=== PATIENT | female | born 1980 | race Caucasian/White ===

== ENCOUNTER 2020-05-19 08:51 | Observation (INO) | payer BC, SELFPAY ==
[2020-05-19] VITALS (14 sets, daily range): BP systolic 92–111; BP diastolic 48–67; PULSE 72–94; RESP 14–20; TEMP 36.2–37.2; O2SAT 92–100
--- NOTE | ~2020-05-19 | CT_ITS ---
EXAMINATION: CT abdomen pelvis w con DATE: 05/19/2020 10:29 INDICATION: Right lower quadrant abdominal pain. Dysuria. TECHNIQUE: Computed tomography (CT) of the abdomen and pelvis was performed with 100 cc Omnipaque 350 intravenous contrast. Automated exposure control and iterative reconstruction technique were employe d. Exam dose: 460.47 mGy-cm total exam DLP. COMPARISON: None. FINDINGS: Status post bilateral augmentation mammoplasty. Normal heart size. No pericardial or pleural effusion. There is no infiltrate or consolidation or mass lesion at the included lung bases. The liver, gallbladder, bile ducts, spleen, pancreas, pancreatic duct, and adrenal glands are unremar kable. Probable 4 mm upper pole right renal cyst. There are 2 lower pole nonobstructing left renal calculi, the larger measuring approximately 3 mm. The appendix is abnormally dilated, measuring up to 9 mm diameter. There is thickening of most of the wall of the appendix but some areas of thinning are noted. There is prominent periappendiceal fat st randing. The findings are consistent with appendicitis. No abscess is identified. There is thickening of the right posterior pararenal fascia. There are air-fluid levels of the colon. Normal caliber of the abdominal aorta. No intraperitoneal or retroperitoneal or pelvic mass lesion or adenopathy or ascites is evident. The urinary bladder is unremarkable. Uterus and adnexal areas are unremarkable. Included skeletal structures are unremarkable. IMPRESSION: Acute appendicitis with prominent periappendiceal inflammation Probable 4 mm right renal cyst Two lower pole nonobstructing left renal small calculi Dr. Tobar telephoned the report to ER physician Dr. Harper on 05/19/2020 at 1042 hours. Reviewed, dictated and finalized at [facility]. Reviewed, dictated and finalized at [facility]. IMPRESSION: Acute appendicitis with prominent periappendiceal inflammation Probable 4 mm right renal cyst Two lower pole nonobstructing left renal small calculi Dr. Tobar telephoned the report to ER physician Dr. Harper on 05/19/2020 at 1042 ho urs.
[2020-05-19] MEDS: SODIUM CHLORIDE 0.9% IV 1,000 ML 999 ML IV CONT (09:21)
[2020-05-19 09:23] LABS: Basophils Percent Auto 0.2 % (0.2-1.2); Eosinophils Percent Auto 0.2 % (0-4.4); Hematocrit 39.9 % (37.0-47.0); Hemoglobin 13.9 g/dL (12.0-15.0); Immature Granulocyte Absolute 0.07 K/mm3 (0.00-0.031); Immature Granulocyte Percent A 0.4 % (0-0.5); Lymphocytes Absolute Auto 1.01 K/mm3 (0.9-3.2); Lymphocytes Percent Auto 5.8 % (18.3-44.2); Mean Corpuscular HGB Conc 34.8 g/dl (32-36); Mean Corpuscular Hemoglobin 31.1 pg (26-34); Mean Corpuscular Volume 89.3 fl (80-100); Mean Platelet Volume 11.6 fl (7.4-10.4); Monocytes Absolute Auto 0.6 K/mm3 (0.1-0.6); Monocytes Percent Auto 3.7 % (2.6-8.5); Neutrophils Absolute Auto 15.6 K/mm3 (1.3-6.7); Neutrophils Percent Auto 89.7 % (45.5-73.1); Platelet Count Result 221 k/mm3 (150-375); Red Blood Count 4.47 M/mm3 (4.2-5.4); Red Cell Distribution Width 12.4 % (11.5-14.5); White Blood Count 17.4 K/mm3 (4.5-10.0)
[2020-05-19 09:26] LABS: Add Urine Microscopic? YES; Appearance Urine Clear (Clear); Bacteria Urine Trace /hpf; Bilirubin Urine Negative (Negative); Blood Urine Negative (Negative); Color Urine Yellow (Yellow); Glucose Urine UA Negative (Negative); Ketones Urine 1+ mg/dL (Negative); Leukocyte Esterase Ur Negative LEU/UL (Negative); Mucus Urine Rare /lpf; Nitrate Urine Negative (Negative); Protein Urine Negative (Negative); RBC Urine 0-2 /hpf (0-2); Specific Grav Ur 1.011 (1.001-1.035); Squamous Epithelial Cell Urine Many /hpf (Few); Urobilinogen Urine Negative mg/dL (<2.0)
[2020-05-19 09:34] LABS: Alanine Aminotransferase 15 U/L (4-35); Albumin Level 4.1 g/dL (3.5-5.1); Alkaline Phosphatase 77 U/L (38-126); Anion Gap 9 mmol/L (8-16); Aspartate Amino Transferase 14 U/L (14-36); Bilirubin,Total 0.5 mg/dL (0.2-1.3); Blood Urea Nitrogen 6 mg/dL (7-17); Carbon Dioxide 21 mmol/L (22-30); Chloride 105 mmol/L (98-107); Estimated Glomerular Filt Rate > 60; Glucose 124 mg/dL (65-105); Potassium 3.8 mmol/L (3.4-5.0); Sodium 135 mmol/L (137-145)
--- NOTE | 2020-05-19 09:51 | ED.ABDPAIN ---
HPI - Abdominal Pain General Chief Complaint: Abdominal Pain Stated Complaint: abd pain Time Seen by Provider: 05/19/20 09:07 History of Present Illness HPI narrative: Patient presents with right lower quadrant pain for 2 days. She gives it a 6 out of 10. She has a history of 2 C-sections. She denies fever, but has chills and sweats. She has had no nausea or vomiting. MD elicited complaint: abdominal pain Pertinent past history: other ( x2) Onset (ago): day(s) Pain Consistency: constant Location: RLQ Severity: severe Pain scale (0-10): 6 Radiation: none Migration to: no migration Exacerbating factors: movement and other (Palpitation) Relieving factors: nothing Associated symptoms: chills Related Data Patient : No Allergies Allergy/AdvReac Type Severity Reaction Status Date / Time No Known Allergies Allergy Verified 05/19/20 09:13 Review of Systems Review of Systems: Narrative: CONSTITUTIONAL: Denies fever, but has had chills, or sweats. EYES: Denies visual changes, redness, or discharge. ENT: Denies rhinorrhea, congestion, sore throat, or otalgia. CARDIOVASCULAR: Denies chest pain, palpitations, or edema. RESPIRATORY: Denies cough or dyspnea. GASTROINTESTINAL: She has abdominal pain, but not nausea, vomiting, or diarrhea. GENITOURINARY: Denies dysuria or hematuria. SKIN: Denies rash or itching. MUSCULOSKELETAL: Denies back pain, joint pain, or myalgia. NEUROLOGIC: Denies headache, numbness, or weakness. PSYCHIATRIC: Denies anxiety, but has a history of depression. All systems reviewed & are unremarkable except as noted in HPI and below PMFSH Past Medical History Medical History Depression Surgical History Surgical History (Updated 05/19/20 @ 09:56 by Jolene Harper MD) History of Family History Family History (Updated 06/25/18 @ 14:53 by DOCTOR UNKNOWN) Mother Hypertension Family history of diabetes mellitus in first degree relative Diabetes mellitus Asthma Family history of elevated blood lipids Grandparent Family history of heart disease in male family member before age 55 Father Family history of cardiovascular disease Sibling Patient's sister is in good health Social History Social History Smoking status: Never smoker Alcohol intake: never Gender identity (if verbalized by the patient): Female Exam Narrative: Exam Narrative: GENERAL: Well-appearing, well-nourished, holding her right side bend over. HEAD: Normocephalic, atraumatic. EYES: PERRLA and EOMI. ENT: Nares clear, no rhinorrhea or epistaxis. Mucous membranes moist. NECK: Supple. CHEST: Clear to auscultation. No respiratory distress. HEART: Regular rate and rhythm. No murmur heard. Normal peripheral pulses. ABDOMEN: Soft, tender, nondistended, normal active bowel sounds. EXTREMITIES: Normal range of motion. No edema. SKIN: Warm, dry, no rash. NEURO: No focal deficits. Alert and oriented x3. PSYCH: Normal mood and affect. Const: General: alert Course Reevaluation(s) Reevaluation #1: Went back in the room to inform the patient about her appendicitis. She was just about asked for some water. Instead we will give her some more pain medicine. She understands about having surgery for her appendix. Date: 05/19/20 Time: 10:47 Consultations Consultation #1: Calling Dr. Puckett to notify about the appendicitis. She is going to call the operating room and get a space as soon as possible Date: 05/19/20 Time: 10:46 Vital Signs Vital signs: Vital Signs Temperature 98.5 F 05/19/20 09:10 Pulse Rate 94 05/19/20 09:10 Respiratory Rate 18 05/19/20 09:10 Blood Pressure 106/60 05/19/20 09:10 Pulse Oximetry 95 05/19/20 09:10 Temperature 98.5 F 05/19/20 09:10 Pulse Rate 94 05/19/20 09:10 Respiratory Rate 18 05/19/20 09:10 Blood Pressure 106
[2020-05-19] MEDS: MORPHINE SULFATE 4 MG/ML INJ IV PUSH ×2 (10:00→11:06)
[2020-05-19] MEDS: ONDANSETRON INJ 4 MG/2 ML VIAL IV PUSH (10:22)
--- NOTE | 2020-05-19 12:18 | WPDANESEPPF ---
Anes - Initial Pre Proc Eval Procedure: Operation Date: 05/19/20 12:30 Proposed Procedures p Laparoscopic Appendectomy - Isacc Puckett DO Date/Time: 05/19/20 12:18 Surgeon: Isacc Puckett DO Pre Op Diagnosis: abd pain Patient Data Age: 40 Gender: F Height: Weight: 70 kg Last Vital Signs Temp 98.5 F 05/19/20 09:10 Pulse 86 05/19/20 11:47 Resp 18 05/19/20 11:47 BP 100/66 05/19/20 11:47 Pulse Ox 96 05/19/20 11:47 Allergies Allergy/AdvReac Type Severity Reaction Status Date / Time No Known Allergies Allergy Verified 05/19/20 09:13 Home Medications Medication Instructions Recorded Confirmed Type escitalopram oxalate 20 mg tablet 20 mg PO DAILY #90 tablet 11/25/19 Rx aripiprazole 5 mg tablet See Rx Instructions .ROUTE 03/08/20 Rx .COMPLEX #90 tablet eszopiclone 3 mg tablet 3 mg PO .at hs #90 tablet 04/21/20 Rx alprazolam 0.5 mg tablet 0.5 mg PO BID PRN #180 tablet 04/26/20 Rx Laboratory Tests 05/19/20 05/19/20 05/19/20 09:17 09:17 09:17 WBC 17.4 K/mm3 H K/mm3 (4.5-10.0) RBC 4.47 M/mm3 M/mm3 (4.2-5.4) Hgb 13.9 g/dL g/dL (12.0-15.0) Hct 39.9 % % (37.0-47.0) MCV 89.3 fl fl (80-100) MCH 31.1 pg pg (26-34) MCHC 34.8 g/dl g/dl (32-36) RDW 12.4 % % (11.5-14.5) Plt Count 221 k/mm3 k/mm3 (150-375) MPV 11.6 fl H fl (7.4-10.4) Immature Gran % (Auto) 0.4 % % (0-0.5) Neut % (Auto) 89.7 % H % (45.5-73.1) Lymph % (Auto) 5.8 % L % (18.3-44.2) [place] % (Auto) 3.7 % % (2.6-8.5) Eos % (Auto) 0.2 % % (0-4.4) Baso % (Auto) 0.2 % % (0.2-1.2) Lymph # (Auto) 1.01 K/mm3 K/mm3 (0.9-3.2) [place] # (Auto) 0.6 K/mm3 K/mm3 (0.1-0.6) Eos # (Auto) 0.0 K/mm3 K/mm3 (0-0.3) Baso # (Auto) 0.0 K/mm3 K/mm3 (0.0-0.1) Abs Immat Gran (auto) 0.07 K/mm3 H K/mm3 (0.00-0.031) Absolute Neuts (auto) 15.6 K/mm3 H K/mm3 (1.3-6.7) Absolute Nucleated RBC 0.0 K/mm3 K/mm3 (0.0-0.012) Nucleated RBC % 0.0 % % (0.0-0.2) Sodium 135 mmol/L L mmol/L (137-145) Potassium 3.8 mmol/L mmol/L (3.4-5.0) Chloride 105 mmol/L mmol/L (98-107) Carbon Dioxide 21 mmol/L L mmol/L (22-30) Anion Gap 9 mmol/L mmol/L (8-16) BUN 6 mg/dL L mg/dL (7-17) Creatinine 0.70 mg/dL mg/dL (0.7-1.0) Estim Creat Clear Calc Not Reportable Estimated GFR > 60 (59 - ) Glucose 124 mg/dL H mg/dL (65-105) Calcium 9.0 mg/dL mg/dL (8.4-10.2) Total Bilirubin 0.5 mg/dL mg/dL (0.2-1.3) AST 14 U/L U/L (14-36) ALT 15 U/L U/L (4-35) Alkaline Phosphatase 77 U/L U/L (38-126) Total Protein 7.0 g/dL g/dL (6.3-8.2) Albumin 4.1 g/dL g/dL (3.5-5.1) Urine Color Yellow (Yellow) Urine Appearance Clear (Clear) Urine pH 6.0 (5.0-9.0) Ur Specific [place] 1.011 (1.001-1.035) Urine Protein Negative mg/dL mg/dL (Negative) Urine Glucose (UA) Negative mg/dL mg/dL (Negative) Urine Ketones 1+ mg/dL H mg/dL (Negative) Ur Blood (Man) Negative (Negative) Urine Nitrate Negative (Negative) Urine Bilirubin Negative (Negative) Urine Urobilinogen Negative mg/dL mg/dL (<2.0) Leukocyte Esterase Rfl Negative LAINEY/UL LAINEY/UL (Negative) Urine RBC 0-2 /hpf /hpf (0-2) Urine WBC 4-6 /hpf H /hpf Ur Squamous Epith Cells Many /hpf H /hpf (Few) Urine Bacteria Trace /hpf /hpf Urine Mucus Rare /lpf /lpf Patient hx anesthesia problems: none Family hx anesthesia problems: none PMFSH Past Medical History Medical History (Rev
[2020-05-19] MEDS: LACTATED RINGERS 1,000 ML 30 ML IV CONT (12:20)
[2020-05-19] MEDS: KETOROLAC 15 MG/ML VIAL (*BKC) IV PUSH (13:00)
[2020-05-19] MEDS: BUPIVACAINE/EPINEPHRINE 0.5% 30 ML VIAL INFILTRATE (13:15)
[2020-05-19] MEDS: ACETAMINOPHEN 325 MG TABLET 650 MG PO (15:44)
--- NOTE | 2020-05-19 16:13 | PM.IMHP ---
H&P: HPI History of Present Illness Date/Time: 05/19/20 16:13 Chief complaint: acute perforated appendicitis Narrative: Araceli Hager is a 40 year old female Who presented to the emergency department today with right lower quadrant abdominal pain. She has been experiencing pain for 4 days and pain has gradually worsened. She has also experienced chills but denies fevers. She denies any change in bowel habits or any nausea or vomiting. She has never had any symptoms like this in the past. Review of Systems Review of Systems: All systems reviewed & are unremarkable except as noted in HPI and below Eyes: Eyes: Denies change in vision ENT: Denies hearing loss, Denies neck pain and Denies sore throat Cardiovascular: Cardiovascular: Denies chest pain and Denies dyspnea Respiratory: Respiratory: Denies cough, Denies dyspnea and Denies wheezing Gastrointestinal: Gastrointestinal: Reports as per HPI Genitourinary: Genitourinary: Denies hematuria and Denies dysuria Musculoskeletal: Musculoskeletal: Denies arthralgias, Denies joint swelling and Denies neck pain Allergic/Immunologic: Allergic/Immunologic: Denies wheezing [facility] Past Medical History Medical History Depression Surgical History Surgical History History of Family History Family History Mother Hypertension Family history of diabetes mellitus in first degree relative Diabetes mellitus Asthma Family history of elevated blood lipids Grandparent Family history of heart disease in male family member before age 55 Father Family history of cardiovascular disease Sibling Patient's sister is in good health Social History Social History Smoking packs per day: 1.5 Smoking cigarettes per day: 30.0 Years smoked: 30 Smoking pack-years: 45.00 Smoking status: Former smoker Tobacco type: cigarettes Smoking end date: 05/15/20 Alcohol intake: never Substance use: never Gender identity (if verbalized by the patient): Female Spiritual care concerns: No Meds Home Medications and Allergies Home Medications Medication Instructions Recorded Confirmed Type alprazolam 0.5 mg tablet 0.5 mg PO BID PRN #180 tablet 04/26/20 05/19/20 Rx aripiprazole 5 mg PO HS 05/19/20 05/19/20 History escitalopram oxalate 20 mg PO HS 05/19/20 05/19/20 History eszopiclone [Lunesta] 3 mg PO HS 05/19/20 05/19/20 History Allergies Allergy/AdvReac Type Severity Reaction Status Date / Time No Known Allergies Allergy Verified 05/19/20 09:13 Vital Signs Vital Signs - 24 hr 05/19/20 09:10 05/19/20 10:55 05/19/20 11:07 Temperature 36.9 C Pulse Rate 94 88 89 Respiratory Rate 18 18 17 Blood Pressure 106/60 92/67 L 92/67 L Pulse Oximetry 95 98 97 05/19/20 11:47 05/19/20 12:25 05/19/20 13:50 Temperature 37.2 C 36.3 C L Pulse Rate 86 92 82 Respiratory Rate 18 16 14 Blood Pressure 100/66 106/48 L 103/59 L Pulse Oximetry 96 100 100 05/19/20 14:05 05/19/20 14:20 05/19/20 14:35 Temperature Pulse Rate 72 86 78 Respiratory Rate 14 14 14 Blood Pressure 96/49 L 106/61 98/50 L Pulse Oximetry 100 97 100 05/19/20 14:38 05/19/20 14:53 05/19/20 15:23 Temperature 36.2 C L 36.3 C L 36.4 C Pulse Rate 72 79 81 Respiratory Rate 15 15 19 Blood Pressure 110/64 109/64 104/55 L Pulse Oximetry 96 96 96 Exam Const: General: alert; No acute distress Orientation/consciousness: patient oriented x3 Limitations: no limitations HENMT: Head: normocephalic and atraumatic Ears: hearing grossly normal bilaterally General nose exam: Normal external nose present and Normal nares present Mouth: Yes Normal oral and palatal mucosa present and Yes moist mucous membranes Eyes: General: appearan
--- NOTE | 2020-05-19 16:20 | PM.PROC ---
Procedure Note - Detailed Date of procedure: 05/19/20 Pre-op diagnosis: acute appendicitis Post-op diagnosis: other ( Acute perforated appendicitis with abscess) Procedure performed: 1. Laparoscopic Appendectomy 2. laparoscopic drainage of intra-abdominal abscess Description of procedure: Procedure as well as risks, benefits, and alternatives were explained to the patient. The patient agreed to proceed. Written consent was obtained and placed in chart prior to procedure. The patient was brought back to surgical suite. she was placed supine on operating table. Time-out was done to confirm the patient and procedure. The patient was then intubated by the Anesthesia Department. her abdomen was prepped and draped in sterile fashion using chlorhexidine prep. A 12 mm incision was made at the inferior portion of the umbilicus. Blunt dissection was carried out down to the linea alba. The linea alba was then incised using a 15 blade scalpel. Then bluntly entered into the peritoneal cavity. A 12 mm trocar was then inserted, and carbon dioxide insufflation was used to create a pneumoperitoneum. The camera was inserted and the abdomen was inspected. No immediate abnormalities were identified. The patient was then placed in slight Trendelenburg position and rotated to the left. A 5 mm incision was made in the suprapubic region in midline and a 5 mm trocar was inserted under direct visualization. A 5 mm incision was made in the left lower quadrant and a 5 mm trocar was inserted under direct visualization. The right lower quadrant was carefully inspected. The cecum was identified and then this was traced back to the appendix. there appeared to be a perforation along the appendix and a small abscess was contained between the appendix and terminal ileum. The abscess was drained using the suction bulb inspector and any spillage was carefully contained to prevent spread throughout her abdominal cavity. The appendix was identified and grasped at the mesoappendix and lifted anteriorly. Careful blunt dissection was carried out at the base of the appendix through the mesoappendix using a [place] grasper. An Endo-CINDY 45 mm blue load stapler was then advanced across the base of the appendix and clamped and fired. A white reload was then clamped across the mesoappendix and fired. This freed up our appendix completely. It was then placed in an EndoCatch bag and removed through the left lower quadrant port. The staple lines were then inspected. Hemostasis appeared adequate and the staple lines appeared secure. The area was then irrigated with sterile saline. The pelvis was then carefully inspected and irrigated with sterile saline as well and the remainder of the abdomen was carefully inspected. The patient was then flattened out in bed. One final inspection was made around the abdominal cavity and no other abnormalities were seen. The ports were then removed under direct visualization. The camera was removed and the pneumoperitoneum was released. The fascia of the umbilical incision was reapproximated using an 0 Vicryl [id number] suture. 0.5% bupivacaine with epinephrine was infiltrated locally around each of the incisions. The skin of the incisions was then approximated using 4-0 Monocryl subcuticular suture and Exofin glue was applied on top. The patient was then awakened from anesthesia, extubated, and transferred to Recovery. Anesthesia: GETA and local (0.5% bupivicaine with epi) Surgeon: Isacc Puckett DO Estimated blood loss (mL): 10 Pathology: yes (Appendix) Complications: No immediate complications Condition: stable Disposition: floor Findings: This is a 40-year-old woman who presented to the emergency department this morning with right lower quadrant abdominal pain that started about 4 days prior. She was having some chills but denied any fevers. She was noted to have elevated white blood count at 17,[address] of her abdomen and pelvis showed ev
[2020-05-19] MEDS: NICOTINE (*PBKC) 21 MG PATCH 1 PATCH TRANSDERM (16:52)
[2020-05-19] MEDS: ARIPiprazole 5 MG TABLET PO (21:17)
[2020-05-19] MEDS: ZOLPIDEM TARTRATE 5 MG TABLET 10 MG PO (21:17)
[2020-05-19] MEDS: ESCITALOPRAM OXALATE 10 MG TABLET 20 MG PO (21:17)
[2020-05-20] VITALS: BP 103/67; PULSE 76; RESP 18; TEMP 36.5; O2SAT 98
[2020-05-20 04:00] VITALS: BP 92/60; PULSE 71; RESP 20; TEMP 36.2; O2SAT 98
[2020-05-20 05:30] LABS: Hematocrit 32.4 % (37.0-47.0); Hemoglobin 10.9 g/dL (12.0-15.0); Mean Corpuscular HGB Conc 33.6 g/dl (32-36); Mean Corpuscular Hemoglobin 30.8 pg (26-34); Mean Corpuscular Volume 91.5 fl (80-100); Mean Platelet Volume 11.8 fl (7.4-10.4); Platelet Count Result 168 k/mm3 (150-375); Red Blood Count 3.54 M/mm3 (4.2-5.4); Red Cell Distribution Width 12.6 % (11.5-14.5); White Blood Count 11.6 K/mm3 (4.5-10.0)
[2020-05-20 05:45] LABS: Anion Gap 4 mmol/L (8-16); Blood Urea Nitrogen 5 mg/dL (7-17); Calcium 8.4 mg/dL (8.4-10.2); Carbon Dioxide 24 mmol/L (22-30); Chloride 106 mmol/L (98-107); Estimated Glomerular Filt Rate > 60; Glucose 104 mg/dL (65-105); Potassium 3.6 mmol/L (3.4-5.0); Sodium 134 mmol/L (137-145)
[2020-05-20] MEDS: ACETAMINOPHEN 325 MG TABLET 650 MG PO (08:01)
[2020-05-20] MEDS: NICOTINE (*PBKC) 21 MG PATCH 1 PATCH TRANSDERM (08:01)
[2020-05-20 10:00] VITALS: BP 98/54; PULSE 70; RESP 16; TEMP 36.3; O2SAT 100
--- NOTE | 2020-05-20 10:42 | WPDANESPN ---
Anes - Prog Note Post-Op Date/Time: 05/20/20 10:42 Cardiovascular status: normal Respiratory status: normal Airway patency: baseline Mental status: baseline Post-Op hydration status: normal Vital Signs: Last Vital Signs Temp 36.3 C L 05/20/20 10:00 Pulse 70 05/20/20 10:00 Resp 16 05/20/20 10:00 BP 98/54 L 05/20/20 10:00 Pulse Ox 100 05/20/20 10:00 I/O: Intake & Output 05/19/20 05/20/20 05/20/20 23:59 07:59 15:59 Intake Total 860 850 690 Output Total 1500 350 Balance 860 -650 340 Laboratory Tests 05/20/20 05:10 05/20/20 05:10 05/20/20 05/20/20 05:10 05:10 WBC 11.6 H RBC 3.54 L Hgb 10.9 L D Hct 32.4 L MCV 91.5 MCH 30.8 MCHC 33.6 RDW 12.6 Plt Count 168 MPV 11.8 H Sodium 134 L Potassium 3.6 Chloride 106 Carbon Dioxide 24 Anion Gap 4 L BUN 5 L Creatinine 0.60 L Estim Creat Clear Calc Not Reportable Estimated GFR > 60 Glucose 104 Calcium 8.4 Post-procedural complaints: none Patient Feedback: Patient satisfied with anesthetic care.
--- NOTE | 2020-05-20 11:44 | PM.DS ---
DS: Admitting Diagnosis Admitting Diagnosis Admitting Diagnosis: acute appendicitis DS: Discharge Diagnosis Discharge Diagnosis (1) Acute appendicitis: Qualifiers: Acute appendicitis type: with localized peritonitis Appendicitis abscess presence: with abscess Appendicitis gangrene presence: without gangrene Appendicitis perforation presence: with perforation Qualified Code(s): K35.33 - Acute appendicitis with perforation and localized peritonitis, with abscess Code(s): K35.80 - Unspecified acute appendicitis Status: Acute (2) Depression: Qualifiers: Depression Type: unspecified Qualified Code(s): F32.9 - Major depressive disorder, single episode, unspecified Code(s): F32.9 - Major depressive disorder, single episode, unspecified Status: Acute DS: Summary Hospital Course Reason for hospitalization: Acute appendicitis Hospital Course: this is a 40-year-old woman who presented to the emergency department on 05/19 with complaints of right lower quadrant abdominal pain. She had been experiencing pain for about 3-4 days before presentation and was also experiencing some occasional chills. Workup in the emergency department showed evidence of acute appendicitis with a markedly elevated white blood count. She was taken emergently for laparoscopic appendectomy on 05/19. At time of surgery, the appendix was noted to be perforated with a small periappendiceal abscess. Surgery was uncomplicated and patient was returned to the surgical floor for continued care and IV antibiotics. She was continued on Zosyn during her hospitalization. She remained afebrile and her vitals remained stable. On postop day 1, her white blood count was nearly back to normal and she was remaining afebrile. She was tolerating a regular diet and was up ambulating without much difficulty. Pain was well controlled. Decision was made to discharge her on postop day 1. Status at Discharge Functional status at discharge: independent ambulation Overall status at discharge: patient is progressing back to baseline Time Spent with Patient Time attestation: Total time spent providing and/or coordinating discharge services: Time spent: Less than 30 minutes Exam Const: General: no acute distress Limitations: no limitations Resp: Auscultation: clear to auscultation bilaterally Cardio: Rate: regular rate Rhythm: regular rhythm GI: Inspection: incision ( mild bruising at incisions but otherwise intact and healing) GI Palp: Yes Soft to palpation, Yes Tenderness to palpation present (GI) ( Incisional) and No Guarding due to palpation present (GI) Percussion: Yes normal to percussion Auscultation: normal bowel sounds Psych: Mental Status: mental status grossly normal Speech and movement: Normal speech and movement present Thought content: Yes Normal thought content present DS: Data Data Completed and Pending Pending studies at discharge: Pending at discharge 05/19/20 13:02 Surgical [PTH] Routine Labs on day of discharge: Labs from last 24 hours 05/20/20 05/20/20 05:10 05:10 WBC 11.6 H RBC 3.54 L Hgb 10.9 L D Hct 32.4 L MCV 91.5 MCH 30.8 MCHC 33.6 RDW 12.6 Plt Count 168 MPV 11.8 H Sodium 134 L Potassium 3.6 Chloride 106 Carbon Dioxide 24 Anion Gap 4 L BUN 5 L Creatinine 0.60 L Estim Creat Clear Calc Not Reportable Estimated GFR > 60 Glucose 104 Calcium 8.4 Imaging Radiologist's impression: ITS Impressions Abdomen/Pelvis CT 05/19/20 10:31 IMPRESSION: Acute appendicitis with prominent periappendiceal inflammation Probable 4 mm right renal cyst Two lower pole nonobstructing left renal small calculi Dr. Tobar telephoned the report to ER physician Dr. Harper on 05/19/2020 at 1042 hours. Discharge Plan Discharge Attending physician on discharge: Isacc Puckett Discharging Clinician: Isacc Puckett Patient Disposition:
== END 2020-05-20 12:31 | disposition home or self-care (01) ==
LOC: ANHED 10:59 → ANHSURGERY 11:40 → ANH2MED 15:00
PROVIDERS: Admitting Provider Surgery; Emergency Provider Emergency Medicine; PCP Internal Medicine; Visit Provider Surgery
PROC: 0DTJ4ZZ Resection of Appendix, Percutaneous Endoscopic Approach (ICD-10-PCS; CPT 44970; principal; 2020-05-19 12:30)
DX: K35.33 Acute appendicitis with perforation, localized peritonitis, and gangrene, with abscess (principal); Z87.891 Personal history of nicotine dependence; F32.9 Major depressive disorder, single episode, unspecified
CPT/HCPCS: 44970; 36415; 74177; 80048; 80053; 81001; 81025; 85025; 85027; 88304; 96361; 96365; 96375; 96376; 99285; A9270; G0378; J0330; J1100; J1170; J1885; J2250; J2270; J2405; J2543; J2704; J3010; J7030; J7120; Q9967

== ENCOUNTER 2021-01-11 08:56 | Outpatient (CLI) | payer BC, SELFPAY ==
--- NOTE | ~2021-01-11 | XR_ITS ---
EXAMINATION: XR heel LT min 2V DATE: 01/11/2021 09:16 INDICATION: Left foot pain. TECHNIQUE: 2 views of left calcaneus were obtained. COMPARISON: None. FINDINGS: Bone alignment is normal. No fracture. Joint spaces are normal. There is an enthesophyte at plantar aspect of calcaneal tuberosity. IMPRESSION: 1. No fracture. Reviewed, dictated and finalized at location [facility]. IMPRESSION: 1. No fracture.
== END 2021-01-11 08:57 | disposition home or self-care (01) ==
LOC: ANHIMG 09:00
PROVIDERS: PCP Internal Medicine; Visit Provider Nurse Practitioner
DX: M79.672 Pain in left foot (principal)
CPT/HCPCS: 73650

== ENCOUNTER 2022-01-10 10:38 | Emergency (ER) | payer BC, SELFPAY ==
--- NOTE | ~2022-01-10 | CT_ITS ---
EXAMINATION: CT brain wo con EXAM DATE: 01/10/2022 12:04 INDICATION: irretractable, diff than usual, visual changes. TECHNIQUE: Spiral CT of the head was performed without contrast. Axial, coronal and sagittal images were reviewed. The dose-length product (DLP) for this examination was 605.33 mGy-cm. The exposure w as tailored according to patient size, and iterative reconstruction (ASIR) was used as additional dos e reduction technique. Comparison is made to prior examination from 05/18/2011. FINDINGS: There is no acute intraparenchymal hemorrhage. No evidence of intraparenchymal brain mass lesion. No evidence of acute infarction. There is no mass effect or midline shift. The ventricles are normal in size. There are no extra-axial collections. There are no acute calvarial fractures. T he orbits are unremarkable. Soft tissue is unremarkable. The visualized sinuses and mastoid air tony ls are well aerated. IMPRESSION: 1. No acute intracranial findings. Reviewed, dictated and finalized at location A.
[2022-01-10 11:00] VITALS: BP 117/81; PULSE 97; RESP 18; TEMP 36.4; O2SAT 98
--- NOTE | 2022-01-10 11:48 | ED.HA ---
HPI - Headache General Chief Complaint: Headache Stated Complaint: migraines x 6 weeks Time Seen by Provider: 01/10/22 11:27 History of Present Illness HPI Narrative: Patient is a 41-year-old female with a history of migraine headaches, depression, anxiety, who presents for 6 weeks of intractable, severe headaches. The pain is described like a pounding sensation behind her bilateral eyes. It is present throughout the day, worse with light and sound. She states the pain is different than her usual migraine headaches, and has been unrelieved by Excedrin Migraine, ibuprofen, sumatriptan, or topiramate prescribed by her PCP. She additionally reports double vision, blurry vision, and nausea but no vomiting. She has not had imaging of her head since onset of this new headache. Denies history of blood clots. Patient was seen by her primary care doctor this morning for the first time, who documented that she had made a statement saying that she wanted to cut herself to bring down the pain. Patient currently denies any suicidal ideation, homicidal ideation, or thoughts of hurting herself by cutting her wrist in the emergency department. She has never been hospitalized for a psychiatric issue, and has had no prior suicide attempts. She has a good support system at home. Related Data Home Medications Medication Instructions Recorded Confirmed topiramate 25 mg tablet 25 mg PO BID tablet 01/10/22 Allergies Allergy/AdvReac Type Severity Reaction Status Date / Time No Known Allergies Allergy Verified 01/10/22 11:17 Review of Systems Review of Systems: Gen.: Denies fevers or chills Eyes: Reports double and blurry vision. ENT: Denies congestion Respiratory: Denies shortness of breath or cough CV: Denies chest pain or palpitations GI: Reports nausea. denies abdominal pain emesis or diarrhea denies burning, urgency, frequency or hematuria Musculoskeletal: Denies back pain or muscle pain Neuro: Reports headache. Denies numbness, tingling, weakness or focal weakness Skin: Denies rash Except as documented, all other systems reviewed and negative All systems reviewed & are unremarkable except as noted in HPI and below PMFSH Past Medical History Medical History Acute appendicitis Chicken pox Depression Encounter for surgical aftercare following surgery on the digestive system Encounter for vitamin deficiency screening History of tonsillitis Insomnia Suicide attempt Surgical History Surgical History History of (~2008) History of (~2010) History of laparoscopic appendectomy 05/19/2020 History of tonsillectomy (~1999) Family History Family History Mother Hypertension Family history of diabetes mellitus in first degree relative Diabetes mellitus Asthma Family history of elevated blood lipids Grandparent Family history of heart disease in male family member before age 55 Father Family history of cardiovascular disease Sibling Patient's sister is in good health Social History Social History Smoking packs per day: 1 Smoking cigarettes per day: 20.0 Years smoked: 30 Smoking pack-years: 30.00 Smoking status: Current every day smoker Tobacco type: cigarettes Second hand tobacco smoke exposure: Yes Alcohol intake: never Substance use: never Substance use type: does not use Additional living arrangements comments: Patient is 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
[2022-01-10] MEDS: SODIUM CHLORIDE 0.9% IV 1,000 ML 999 ML IV CONT (12:15)
[2022-01-10] MEDS: PROCHLORPERAZINE EDISYLATE 10 MG/2 ML VIAL IV PUSH (12:15)
[2022-01-10] MEDS: diphenhydrAMINE HCl INJ 50 MG/ML VIAL 25 MG IV PUSH (12:18)
[2022-01-10] MEDS: KETOROLAC 15 MG/ML VIAL (*BKC) IV PUSH (12:59)
[2022-01-10 14:16] VITALS: BP 142/88; PULSE 86; RESP 16; O2SAT 97
== END 2022-01-10 14:17 | disposition home or self-care (01) ==
PROVIDERS: Emergency Provider Emergency Medicine; PCP Internal Medicine
DX: G43.909 Migraine, unspecified, not intractable, without status migrainosus (principal)
CPT/HCPCS: 70450; 81025; 96374; 96375; 99284; J0780; J1200; J1885; J7030

== ENCOUNTER 2022-03-14 10:35 | Outpatient (CLI) | payer BC, SELFPAY ==
--- NOTE | ~2022-03-14 | US_ITS ---
US right upper quadrant DATE: 03/14/2022 11:15 INDICATION: Right upper quadrant abdominal pain TECHNIQUE: Real-time imaging of liver, Gallbladder, pancreas COMPARISON: 05/19/2020 CT abdomen pelvis FINDINGS: Hepatic steatosis. No hepatic or pancreatic space-occupying mass lesion is evident. Normal hepatopedal portal venous flow direction. No gallstones, gallbladder wall thickening or pericholecystic fluid collection. Negative sonographic Silva's sign. The common bile duct measures 3.9 mm, normal. IMPRESSION: Hepatic steatosis Reviewed, dictated and finalized at [facility]. Reviewed, dictated and finalized at location A. IMPRESSION: Hepatic steatosis
== END 2022-03-14 10:36 | disposition home or self-care (01) ==
LOC: ANHIMG 10:37
PROVIDERS: PCP Emergency Medicine; Visit Provider Physician Assistant
DX: R10.11 Right upper quadrant pain (principal); K76.0 Fatty (change of) liver, not elsewhere classified
CPT/HCPCS: 76705

== ENCOUNTER → 2023-02-19 07:25 | Outpatient (CLI) | payer BC, SELFPAY ==
--- NOTE | ~2023-02-19 | XR_ITS ---
Left wrist Technique: PA, oblique, lateral, and ulnar deviation views were obtained. Clinical History: Pain Findings: No acute fracture or dislocation is seen. Osseous alignment is anatomic. Joint spaces are p reserved. Soft tissues are unremarkable. Impression: Unremarkable left wrist radiographs. Reviewed, dictated and finalized at location . Impression: Unremarkable left wrist radiographs.
== END ==
PROVIDERS: PCP Family Medicine; Visit Provider Family Medicine
DX: M25.532 Pain in left wrist (principal)
CPT/HCPCS: 73110

== ENCOUNTER → 2023-04-10 07:01 | Outpatient (CLI) | payer BC, SELFPAY ==
--- NOTE | ~2023-04-10 | XR_ITS ---
EXAMINATION: XR lumbar spine min 4V DATE: 04/10/2023 07:22 INDICATION: Low back pain, unspecified. TECHNIQUE: 5 views of lumbar spine were obtained. COMPARISON: CT abdomen and pelvis 05/19/2020 FINDINGS: There is 7 degrees dextrocurvature of lumbar spine. Vertebral body heights are normal. Ther e is mildly decreased disc height at L4-L5. There is multilevel mild facet joint osteoarthritis. Surg ical clips overlie right abdomen. IMPRESSION: 1. Mild lumbar spondylosis. Reviewed, dictated and finalized at location A. IMPRESSION: 1. Mild lumbar spondylosis.
== END ==
PROVIDERS: PCP Family Medicine; Visit Provider Family Medicine
DX: M47.816 Spondylosis without myelopathy or radiculopathy, lumbar region (principal)
CPT/HCPCS: 72110

== ENCOUNTER → 2023-06-13 09:15 | Outpatient (CLI) | payer BC, SELFPAY ==
--- NOTE | ~2023-06-13 | CT_ITS ---
EXAMINATION: CT wrist LT wo con DATE: 06/13/2023 09:32 INDICATION: Left wrist pain TECHNIQUE: High resolution computed tomography (CT) of the left wrist was performed without intraveno us contrast. Additional sagittal and coronal reconstructions were performed. Automated exposure contr ol and iterative reconstruction technique were employed. The dose-length product was 81.23 mGy-cm. COMPARISON: None FINDINGS: Bone alignment is normal. No acute fracture. There are a couple tiny calcific densities along the pal mar aspect of the first carpometacarpal joint without evident non corticated donor site which could r epresent degenerative loose bodies, heterotopic ossification or chronic fracture fragments. Joint spa morenita are normal. Soft tissues are unremarkable. IMPRESSION: 1. A couple tiny calcific densities along the palmar aspect of the first carpometacarpal joint which could represent degenerative loose bodies, heterotopic ossification or chronic nonunited fracture fra gments. Reviewed, dictated and finalized at location A. IMPRESSION: 1. A couple tiny calcific densities along the palmar aspect of the first carpom etacarpal joint which could represent degenerative loose bodies, heterotopic os sification or chronic nonunited fracture fragments.
== END ==
PROVIDERS: PCP Orthopaedic Surgery; Visit Provider Orthopaedic Surgery
DX: M25.532 Pain in left wrist (principal); R93.6 Abnormal findings on diagnostic imaging of limbs
CPT/HCPCS: 73200

== ENCOUNTER 2023-12-14 04:44 | Emergency (ER) | payer BC, SELFPAY ==
[2023-12-14 04:47] VITALS: BP 147/94; PULSE 107; RESP 20; TEMP 37.1; O2SAT 100
[2023-12-14] MEDS: ACETAMINOPHEN 500 MG TABLET 1000 MG PO (06:16)
[2023-12-14] MEDS: diphenhydrAMINE HCl INJ 50 MG/ML VIAL 25 MG IV PUSH (06:16)
[2023-12-14] MEDS: PROCHLORPERAZINE EDISYLATE 10 MG/2 ML VIAL IV PUSH (06:16)
[2023-12-14] MEDS: SODIUM CHLORIDE 0.9% IV 1,000 ML 999 ML IV CONT (06:17)
--- NOTE | 2023-12-14 06:23 | ED.GENADULT ---
HPI - General Adult General Chief complaint: Headache Stated complaint: headache Time Seen by Provider: 12/14/23 05:18 History of Present Illness HPI narrative: This is a 43-year-old female presenting ED with chief complaint of headache. Patient says her headache starts back her head, wraps around her ears and then is a squeezing pain around the top of her head. This is been going on since Saturday. Patient has seen her primary care physician multiple times last 4 years and has taken multiple abortive migraine medications without relief. She has appointment see a neurosurgeon in 2 weeks for in occipital nerve ablation. Patient has had an extensive workup performed for her headaches by her primary care physician as well as multiple consultations by specialist Related Data Home Medications Medication Instructions Recorded Confirmed clonazepam 1 mg tablet 1 mg PO QHS 06/05/23 11/26/23 lamotrigine 25 mg tablet 25 mg PO DAILY 06/05/23 11/26/23 Allergies Allergy/AdvReac Type Severity Reaction Status Date / Time No Known Allergies Allergy Verified 11/26/23 07:59 PMFSH Past Medical History Medical History Abdominal cramping Acute appendicitis Chicken pox Colon cancer screening Depression Diarrhea Encounter for surgical aftercare following surgery on the digestive system Encounter for vitamin deficiency screening History of tonsillitis Insomnia Major depressive disorder, recurrent severe without psychotic features Major depressive disorder, recurrent, unspecified Obesity Suicide attempt Surgical History Surgical History History of bilateral tubal ligation 2010 History of (~2008) History of (~2010) History of endometrial ablation 2012 History of laparoscopic appendectomy 05/19/2020 History of tonsillectomy (~1999) Family History Family History Mother Hypertension Family history of diabetes mellitus in first degree relative Diabetes mellitus Asthma Family history of elevated blood lipids Grandparent Family history of heart disease in male family member before age 55 Father Family history of cardiovascular disease Sibling Patient's sister is in good health Social History Social History Smoking packs per day: 1 Smoking cigarettes per day: 20.0 Years smoked: 30 Smoking pack-years: 30.00 Smoking status: Current every day smoker Tobacco type: cigarettes Second hand tobacco smoke exposure: Yes Alcohol intake: never Substance use: never Substance use type: does not use Do You Feel Safe in your Home?: Yes Lack of Transportation: No Lack of Food: Never True Current Housing: I Have Housing Concerned About Future Housing: No Difficulty Paying Gas/Electric Bills: No Difficulty Paying for Meds: No Currently Unemployed: Decline to Answer Education: Associate Degree Difficulty w/ Childcare or Family Care: No Living arrangements: with family Additional living arrangements comments: Patient is Occupation/Education: unemployed 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 EYES: EOMI, NOSE: Atraumatic NECK: Trachea midline RESPIRATORY: No increased rate of breathing CARDIOVASCULAR: RRR, ABDOMINAL: Non-distended MUSCULOSKELETAl: No obvious deformities NEURO: Alert. Cranial nerves 2-12 grossly intact. Sensation light touch, motor function cerebellar function intact for 4 extremities. Gait exam was normal. SKIN:: W
[2023-12-14 07:34] VITALS: BP 108/63; PULSE 78; RESP 19; TEMP 36.6; O2SAT 97
== END 2023-12-14 07:37 | disposition home or self-care (01) ==
PROVIDERS: Emergency Provider Emergency Medicine; PCP Family Medicine
DX: R51.9 Headache, unspecified (principal); F17.210 Nicotine dependence, cigarettes, uncomplicated
CPT/HCPCS: 64999; 96361; 96374; 96375; 99284; A9270; J0780; J1200; J7030

== ENCOUNTER 2024-01-08 07:41 | Outpatient (CLI) | payer BC, SELFPAY ==
--- NOTE | ~2024-01-08 | XR_ITS ---
XR hand RT min 3V DATE: 01/08/2024 08:04 INDICATION: Pain TECHNIQUE: 3 views COMPARISON: None FINDINGS: No fracture, dislocation, periosteal reaction or bone destruction, joint space narrowing, e rosive change or chondrocalcinosis is noted. IMPRESSION: Negative Reviewed, dictated and finalized at location B. IMPRESSION: Negative
== END 2024-01-08 07:42 | disposition home or self-care (01) ==
PROVIDERS: PCP Family Medicine; Visit Provider Plastic Surgery
DX: M18.0 Bilateral primary osteoarthritis of first carpometacarpal joints (principal)
CPT/HCPCS: 73130

== ENCOUNTER 2024-05-13 06:47 | Outpatient (CLI) | payer BC, SELFPAY ==
--- NOTE | ~2024-05-13 | XR_ITS ---
EXAMINATION: XR hand BI arthritis min 3V DATE: 05/13/2024 07:07 INDICATION: Unilateral primary osteoarthritis of first carpometacarpal joint. TECHNIQUE: 4 views of right hand and 4 views of left hand on a total of 7 radiographs were obtained. COMPARISON: Right hand radiographs 01/08/2024, left wrist radiographs 02/19/2023 FINDINGS: RIGHT HAND: Bone alignment is normal. No fracture. There is mild osteoarthritis of first carpometacar pal joint. LEFT HAND: Bone alignment is normal. No fracture. There is mild osteoarthritis of first carpometacarp al joint. IMPRESSION: 1. Mild osteoarthritis of the bilateral first carpometacarpal joints. Reviewed, dictated and finalized at location A.
== END 2024-05-13 06:48 | disposition home or self-care (01) ==
PROVIDERS: PCP Family Medicine; Visit Provider Plastic Surgery
DX: M18.11 Unilateral primary osteoarthritis of first carpometacarpal joint, right hand (principal); M18.12 Unilateral primary osteoarthritis of first carpometacarpal joint, left hand
CPT/HCPCS: 73130

== ENCOUNTER 2024-07-27 08:33 | Outpatient (CLI) | payer BC, SELFPAY ==
--- NOTE | ~2024-07-27 | MR_ITS ---
MRI of the lumbar spine Clinical History: Spondylosis Technique: Axial T2-weighted images, and sagittal T1-weighted, T2-weighted, and and T2 fat-sat images were acquired. Findings: There is no fracture or subluxation of the lumbar spine. Vertebral bodies maintain normal h eight and alignment. No bone marrow signal abnormality seen. At L1-L2, L2-L3, L3-L4, there is no disc bulge or herniation. There are moderate facet joint degenera tive changes at these levels. No spinal canal stenosis or neural foraminal narrowing at these levels. At L4-L5, there is moderate to advanced degenerative disc narrowing. There is mild disc bulge and mod erate facet arthropathy. No central canal stenosis or neural foraminal narrowing. At L5-S1, there is mild degenerative disc narrowing. There is mild disc bulge with small annular fiss ure. There is moderate facet arthropathy. No central canal stenosis or neural foraminal narrowing. Paravertebral soft tissues are unremarkable. Impression: Mild degenerative spondylosis at the lower lumbar spine, as detailed above. Reviewed, dictated and finalized at [facility]. Impression: Mild degenerative spondylosis at the lower lumbar spine, as detailed above.
== END 2024-07-27 08:34 | disposition home or self-care (01) ==
PROVIDERS: PCP Family Medicine; Visit Provider Family Medicine
DX: M47.26 Other spondylosis with radiculopathy, lumbar region (principal); M47.816 Spondylosis without myelopathy or radiculopathy, lumbar region
CPT/HCPCS: 72148

== ENCOUNTER 2025-08-11 08:32 | Outpatient (CLI) | payer BC, SELFPAY ==
--- OUTSIDE RECORDS SUMMARY | 2024-09-10 11:30 | XMS_ITS ---
Author Organization [facility] [place] ([address]) Address [address] [place] [address] Care Team Providers Care Green Ware Caster Name Role Phone Jerad Barrera MD Primary Care Provider Unavailab Dr. Toni Cordova Unavailable [phone] Encounters Encounter Location Date Provider Diagnosis [facility] [address] [place] [address] 09/10/2024 Toni Davis Plan Of Treatment No Information Progress Notes * Araceli HAGER LDOB:[birth year] (45 yo F)Acc No.[id number]:09/10/2024 Progress Notes Patient: Araceli ABRAHAM Provider: Femi Davis MD :1980 A ge:44 Y S ex:Female Date:09/10/2024 [facility] [id number] Pcp:Jerad Barrera MD Subjective: * Chief Complaints: * * Medical History: Objective: * Vitals: Assessment: Plan: * Treatment: * Billing Information: * Visit Code: * Procedure Codes: * Electronic signature of Dr. Toni Davis MD on 08/11/2025 at 08:47 AM ARBORIST Sign off status: Pending * Provider: Femi Davis MD Date: 1 11/11/2023 Generated for Ritesh bellamy/Mariela/eTransmitting on: 10/11/2024 08:47 AM ARBORIST
--- OUTSIDE RECORDS SUMMARY | 2025-01-14 11:30 | XMS_ITS ---
Author Organization [facility] [place] ([address]) Address [address] [place] [address] Care Team Providers Care Electricians Top Helper Name Role Phone Jerad Barrera MD Primary Care Provider Unavailab Dr. Toni Cordova Unavailable [phone] Deonna Morton [phone] REASON FOR VISIT Headache follow-up Encounters Encounter Location Date Provider Diagnosis [facility] [address] [place] [address] 01/14/2025 Deonna Morton Plan Of Treatment No Information Progress Notes * Araceli HAGER LDOB:[birth year] (45 yo F)Acc No.[id number]:01/14/2025 Progress Notes Patient: Krish CUADRADILLAN Araceli Lester Provider: Brian Morton APRN :1980 A ge:44 Y S ex:Female Date:01/14/2025 [id number] Pcp:Jerad Barrera MD Subjective: * Chief Complaints: * 1 . Headache follow-up. * Medical History: Objective: * Vitals: Assessment: Plan: * Treatment: * Billing Information: * Visit Code: * Procedure Codes: * Electronic signature of CHERIE Pacheco on 08/11/2025 at 08:46 AM ASSISTANT TRACK AND FIELD COACH Sign off status: Pending * Provider: Brian Morton APRN Date: 0 01/14/2025 Generated for Ritesh bellamy/Mariela/Shivani on: 1 10/11/2024 08:46 AM ASSISTANT TRACK AND FIELD COACH
--- OUTSIDE RECORDS SUMMARY | 2025-03-11 11:30 | XMS_ITS ---
Author Organization [facility] [place] ([address]) Address [address] [place] [address] Care Team Providers Care Retail Pos Specialist Name Role Phone Jerad Barrera MD Primary Care Provider Unavailab Dr. Toni Cordova Unavailable [phone] Deonna Morton Unavailable [phone] REASON FOR VISIT Botox Only Medications Medication SIG (Take, Route, Frequency, Duration) Notes Start Date End Date Status SEROquel 25 MG 1 tablet at bedtime Orally Once a day Active traZODone HCl 50MG 1 BY MOUTH AT BEDTIME *Please review and pick correct strength-formulat ion from [employer] options. If intended option is not shown, discontinue and re-order from Quick Search* Not-Taking Tylenol 325 MG 2 tab(s) orally every 4 hours Not-Taking lamoTRIgine 100 MG 1 tab(s) orally 2 times a day Active Neurontin 100 MG 1 cap(s) orally 3 times a day; Duration: 30 day(s) Not-Taking ALPRAZolam 0.5 MG 1 tab(s) orally 3 times a day Not-Taking Ibuprofen 800 MG 1 tab(s) orally Qday, PRN Not-Taking risperiDONE 0.5 MG 1 tab(s) orally 2 times a day; Duration: 30 day(s) Not-Taking Cyclobenzaprine HCl 10 MG 1/2 or 1 tab orally 3 times a day; Duration: 30 days 08/28/2023 Not-Taking Trudhesa 0.725 MG/SPRAY 2 SPRAYS (1 SPRAY PER NOSTRIL) NASAL SPRAY ONCE *Please review and pick correct strength-formulat ion from [employer] options. If intended option is not shown, discontinue and re-order from Quick Search* Not-Taking Nurtec 75 MG 1 tablet Orally every other day as PREVENTIVE 05/07/2024 Active ZAVZPRET (ZAVEGEPANT) 10 MG 1 SPRAY IN ONE NOSTRIL X 1 INTRANASAL PRN MIGRAINE X 1, NO REPEAT DOSE *Please review for potential replacement for e-prescription and drug interaction check* Not-Taking Medrol 4 MG 6 pills Day 1, 5 pills Day 2, 4 pills Day 3, 3 pills Day 4, 2 pills Day 5, 1 pill Day 6, then stop orally in AM with breakfast as directed; Duration: 6 days Not-Taking Ondansetron 4 MG 1 tablet Orally Once a day As needed 09/24/2024 Active Pregabalin 100 MG 1 cap nightly for 1 week, then 1 cap twice daily for 1 week, then 1 cap three times a day Orally as directed 05/07/2024 Active NURTEC ODT 75 MG 1 TAB(S) ORALLY ONCE *Please review for potential replacement for e-prescription and drug interaction check* 12/17/2023 Active KlonoPIN 1 MG 1 tab(s) orally qhs Active Social History Tobacco Use: Social History Observation Description Date Details (start date - stop date) Current Smoker NA - NA Smoking Smart Form: Question Answer Notes Are you a: current smoker Section Notes: Recovered alcoholic. Has bee n a smoker for about 30 years. Problems Problem Type SNOMED Code ICD Code Onset Dates Problem Status W/U Status Risk Notes Problem Transformed migraine (disorder) (665310854) Chronic migraine with aura, not intractable, without status migrainosus (G43.E09) Active confirmed Encounters Encounter Location Date Provider Diagnosis [facility] [address] [address] 03/11/2025 Deonna Morton Chronic migraine wit h aura, not intractable, without status migrainosus G43.E09 Assessments Encounter Date Diagnosis (ICD Code) Assessment Notes Treatment Notes Treatment Clinical Notes Section Notes 03/11/2025 Chronic migraine with aura, not intractable, without status migrainosus (ICD-10 - G43.E09) Plan Of Treatment Next Appt Details Follow Up: 3 Months, Reason: Evaluation and Management. Toxin injection Progress Notes * Araceli HAGER LDOB:[birth year] (45 yo F)Acc No.[id number]:03/11/2025 Progress Notes Patient: Araceli ABRAHAM Provider: Brian Morton APRN :1980 A ge:45 Y S ex:Female Date:03/11/2025 Address:[facility] [id number] Pcp:Jerad Barrera MD Subjective: * Chief Complaints: * 1 . Botox Only. * HPI: * Introduction: HPI: I had the pleasure of seeing Araceli Hager, who presented for Botox injection. * Initial History: INITIAL VISIT HISTORY: She initially developed migraine as a child. She would have nausea/vomiting as a child with migraines. She has had migraine every since childhood. Throughout her adult years she had sporadic migraines, but now in the last 2 years has developed a chronic migraine pattern. Migraine is described as follows: usually starts above right eye in forehead, spreads into bilateral frontotemporal and then generalizes and even spreads into her neck; pain is perceived as severe squeezing, but also endorses pulsating or throbbing, moderate to severe in degree; onset is rapid; aggravated by movement/activity with preference to lie still; associated with photophobia/phonophobia/osmophobia, nausea, and dizziness; no aura; can last hours to days. Triggers include stress, certain odors (perfume, fragrance, flowery smells), sleep deprivation, no dietary triggers. Current pattern is for daily headaches, has a constant daily headache that is mild to moderate headache, with severe migraines about 2 days/month, milder migrainous headaches at least 15 days/month. LAST VISIT HISTORY: Last visit was on 0 11/24/2024 for nerve block. She presents to clinic today for Botox injections for CM. She reports 90% improvement in her occipital nerve pain with relief lasting more than four weeks. * Previous Impression & Plan: Notes P revious Diagnoses: 1 . Chronic migraine with aura, not intractable, without status migrainosus - G43.E09 (Primary). * Interval History: Notes P harmacologic Treatment: C urrent abortive treatment: N urtec ODT 75 mg (effective), ondansetron P revious abortive treatment: R izatriptan, Sumatriptan, Ubrelvy, Trudhesa, Fioricet, Zavzpret NS (all ineffective or inadequately effective) C urrent preventive treatment: Botox, Nurtec ODT 75 mg every other day P revious preventive treatment: Q ulipta 60 mg (side effects), Emgality 120 mg (took for > 3 months earlier in 2023, inadequate effect), Propranolol (took in 2021 for >2 months and was ineffective), Amitriptyline (took eary 2022 for >2 months and was ineffective), Duloxetine (previously on this for depression, did not help her migraines), Topiramate (took early 2022 for >2 months and was ineffective), Gabapentin (took few years ago, took for > 2 months, ineffective) M edication overuse: Not present O ther modalities: Physical Therapy, Chiropractic, Massage Therapy, Acupressure, Trigger point injections, Peripheral nerve blocks H eadache Frequency: I nitial/baseline headache/migraine days/month: L ast visit headache/migraine days/month: 05/05- (Botox + Nurtec) C urrent headache/migraine days/month: / I nterval History: L ast visit was on 0 12/17/2024 for Botox injection. . * Headache: Last injection on 12/17/24: Procerus 5 Units, Inclusion Teacher (Left) 5 Units, Inclusion Teacher (Right) 5 Units, Frontalis (Left) 12.5 Units, Frontalis (Right) 12.5 Units, Temporalis (Left) 25 Units, Temporalis (Right) 25 Units, Occipitalis (Left) 20 Units, Occipitalis (Right) 20 Units, Cervical Paraspinal (Left) 10 Units, Cervical Paraspinal (Right) 10 Units, Trapezius (Left) 15 Units, Trapezius (Right) 15 Units, Masseter (Left) 10 Units, Masseter (Right) 10 Units. * ROS: A LLERGY: Denies all P atient denies itchy or watery ices, nasal congestion or runny nose, sinus pressure or ear pressure. S PECIAL SENSES: Positve for P atient denies glaucoma, cataract, vision loss, hearing loss, or anosmia. C ONSTITUTIONAL: Positive for P atient denies fevers, chills, sweats, unintended weight loss, loss of appetite, or chronic fatigue. E NT: Positive P atient denies ear fullness or pain or sinus pain. R ESPIRATORY: Positive for P atient denies shortness of breath or wheezing. O PHTHALMOLOGY: Positive for R eviewed and except as mentioned above in the HPI is negative. E NDOCRINOLOGY: Positive for P atient denies heat intolerance, cold intolerance, polyuria, elevated blood sugar, chronic fatigue. C ARDIOLOGY: Positive for P atient denies dizziness, palpitations, or chest pain. G ASTROENTEROLOGY: Positive for P atient denies diarrhea, melena, bloody stools, or abdominal pain. U ROLOGY: Positive for P atient denies urinary incontinence or urinary dysfunction. D ERMATOLOGY: Positive for P atient denies rash or hives. ? N EUROLOGY: Positive for R eviewed and except as mentioned above in the HPI is negative. H EMATOLOGY/LYMPH: Positive for P atient denies history of excessive bruising or bleeding diasthesis. M USCULOSKELETAL: Positive for P atient denies extremity joint pain or swelling. P SYCHOLOGY: Positive for R eviewed and except as discussed above in the HPI is otherwise negative. * Medical History: C hronic migraine, Bipolar depression, Recovered alcoholic. * Surgical History: C -section , Tonsillectomy , Appy . * Family History: Family history of migraine in her mother. * Social History: S moking Smart Form Are you a: c urrent smoker R ecovered alcoholic. Has been a smoker for about 30 years. * Medications: T aking SEROquel 25 MG Tablet 1 tablet at bedtime Orally Once a day , Taking lamoTRIgine 100 MG Tablet 1 tab(s) orally 2 times a day , Taking KlonoPIN 1 MG Tablet 1 tab(s) orally qhs , Taking NURTEC ODT 75 MG TABLET, DISINTEGRATING 1 TAB(S) ORALLY ONCE , Notes to Pharmacist: *Please review for potential replacement for e-prescription and drug interaction check*, Taking Nurtec 75 MG Tablet Disintegrating 1 tablet Orally every other day as PREVENTIVE , Taking Ondansetron 4 MG Tablet Disintegrating 1 tablet Orally Once a day As needed, Taking Pregabalin 100 MG Capsule 1 cap nightly for 1 week, then 1 cap twice daily for 1 week, then 1 cap three times a day Orally as directed , Not-Taking/PRN ZAVZPRET (ZAVEGEPANT) 10 MG NASAL SPRAY 1 SPRAY IN ONE NOSTRIL X 1 INTRANASAL PRN MIGRAINE X 1, NO REPEAT DOSE , Notes to Pharmacist: *Please review for potential replacement for e-prescription and drug interaction check*, Not-Taking/PRN Medrol 4 MG Tablet Therapy Pack 6 pills Day 1, 5 pills Day 2, 4 pills Day 3, 3 pills Day 4, 2 pills Day 5, 1 pill Day 6, then stop orally in AM with breakfast as directed , Not-Taking/PRN Cyclobenzaprine HCl 10 MG Tablet 1/2 or 1 tab orally 3 times a day , Not-Taking/PRN Trudhesa 0.725 MG/SPRAY SPRAY 2 SPRAYS (1 SPRAY PER NOSTRIL) NASAL SPRAY ONCE , Notes to Pharmacist: *Please review and pick correct strength-formulation from [employer] options. If intended option is not shown, discontinue and re-order from Quick Search*, Not-Taking/PRN Ibuprofen 800 MG Tablet 1 tab(s) orally Qday, PRN , Not-Taking/PRN risperiDONE 0.5 MG Tablet 1 tab(s) orally 2 times a day , Not-Taking/PRN ALPRAZolam 0.5 MG Tablet 1 tab(s) orally 3 times a day , Not-Taking/PRN traZODone HCl 50MG 1 BY MOUTH AT BEDTIME , Notes to Pharmacist: *Please review and pick correct strength-formulation from [employer] options. If intended option is not shown, discontinue and re-order from Quick Search*, Not-Taking/PRN Tylenol 325 MG Tablet 2 tab(s) orally every 4 hours , Not-Taking/PRN Neurontin 100 MG Capsule 1 cap(s) orally 3 times a day Objective: * Vitals: * Examination: G eneral examination: General appearance: P leasant, well-developed, no distress.? HEENT: N ormocephalic, atraumatic. Neck, thyroid : S upple. Neurologic exam: A lert and oriented x 4. Fluent speech. CN II-XII intact. Motor 5/5 strength in all extremities. Reflexes 2+/2 and symmetric in all extremities. Cerebellar testing no tremors. Gait normal. Assessment: * Assessment: 1. C hronic migraine with aura, not intractable, without status migrainosus - G43.E09 (Primary)? Plan: * Treatment: * Procedure Codes: 6 4615 CHEMODENERV MUSC MIGRAINE, J0585 BOTULINUM TOXIN TYPE A PER UNIT, J0585 BOTULINUM TOXIN TYPE A PER UNIT, Modifiers: JW , 89632 PT-FOCUSED HLTH RISK ASSMT, G8427 DOC MEDS VERIFIED W/PT OR RE, G2211 Complex e/m visit add on * Follow Up: 3 Months (Reason: Evaluation and Management. Toxin injection) * Billing Information: * Visit Code: 94451 Office Visit, Est Pt., Level 4. Modifiers: 85134 Office Visit, Est Pt., Level 3. Modifiers: 74519 Office Visit, Est Pt., Level 5. Modifiers: 25 * Procedure Codes: 04848 CHEMODENERV MUSC MIGRAINE. J0585 BOTULINUM TOXIN TYPE A PER UNIT. J0585 BOTULINUM TOXIN TYPE A PER UNIT. Modifiers: JW 20044 PT-FOCUSED HLTH RISK ASSMT. G8427 DOC MEDS VERIFIED W/PT OR RE. G2211 Complex e/m visit add on. * Electronic signature of CHERIE Pacheco on 08/11/2025 at 08:48 AM SENIOR RELIABILITY ENGINEER Sign off status: Pending * Provider: Brian Morton APRN Date: 0 03/11/2025 Generated for Ritesh bellamy/Mariela/Shivani on: 10/11/2024 08:48 AM SENIOR RELIABILITY ENGINEER History and Physical Notes * HPI (History of Present Illness) Category Sub-Category Detail Notes Category Notes *Introduction HPI: I had the pleasu re of seeing Araceli Hager, who presented for Botox injection *Headache Last injection on 12/17/24: Procerus 5 Units, Inclusion Teacher (Left) 5 Units, Inclusion Teacher (Right) 5 Units, Frontalis (Left) 12.5 Units, Frontalis (Right) 12.5 Units, Temporalis (Left) 25 Units, Temporalis (Right) 25 Units, Occipitalis (Left) 20 Units, Occipitalis (Right) 20 Units, Cervical Paraspinal (Left) 10 Units, Cervical Paraspinal (Right) 10 Units, Trapezius (Left) 15 Units, Trapezius (Right) 15 Units, Masseter (Left) 10 Units, Masseter (Right) 10 Units *Initial History INITIAL VISIT HISTORY: She initially developed migraine as a child. She would have nausea/vomiting as a child with migraines. She has had migraine every since childhood. Throughout her adult years she had sporadic migraines, but now in the last 2 years has developed a chronic migraine pattern. Migraine is described as follows: usually starts above right eye in forehead, spreads into bilateral frontotemporal and then generalizes and even spreads into her neck; pain is perceived as severe squeezing, but also endorses pulsating or throbbing, moderate to severe in degree; onset is rapid; aggravated by movement/activity with preference to lie still; associated with photophobia/phonoph obia/osmophobia, nausea, and dizziness; no aura; can last hours to days. Triggers include stress, certain odors (perfume, fragrance, flowery smells), sleep deprivation, no dietary triggers. Current pattern is for daily headaches, has a constant daily headache that is mild to moderate headache, with severe migraines about 2 days/month, milder migrainous headaches at least 15 days/month. LAST VISIT HISTORY: Last visit was on 11/24/2024 for nerve block. She presents to clinic today for Botox injections for CM. She reports 90% improvement in her occipital nerve pain with relief lasting more than four weeks *Previous Impression & Plan Notes Previous Diagnoses:1. Chroni c migraine with aura, not intractable, without status migrainosus - G43.E09 (Primary) *Interval History Notes Pharmacologic Treatment:Curr ent abortive treatment: Nurtec ODT 75 mg (effective), ondansetronPrevious abortive treatment: Rizatriptan, Sumatriptan, Ubrelvy, Trudhesa, Fioricet, Zavzpret NS (all ineffective or inadequately effective)Current preventive treatment: Botox, Nurtec ODT 75 mg every other dayPrevious preventive treatment: Qulipta 60 mg (side effects), Emgality 120 mg (took for > 3 months earlier in 2023, inadequate effect), Propranolol (took in 2021 for >2 months and was ineffective), Amitriptyline (took eary 2022 for >2 months and was ineffective), Duloxetine (previously on this for depression, did not help her migraines), Topiramate (took early 2022 for >2 months and was ineffective), Gabapentin (took few years ago, took for > 2 months, ineffective)Medication overuse: Not presentOther modalities: Physical Therapy, Chiropractic, Massage Therapy, Acupressure, Trigger point injections, Peripheral nerve blocksHeadache Frequency:Initial/baseline headache/migraine days/month: Last visit headache/migraine days/month: 05/05- (Botox + Nurtec)Current headache/migraine days/month: /Interval History:Last visit was on 12/17/2024 for Botox injection. Examination Category Sub-Category Detail Notes Category Not es General examination HEENT: Normocephalic, atraum atic Neck, thyroid : Supple General appearance: Pleasant, well-devel oped, no distress Neurologic exam: Alert and oriented x 4. Fluent speech. CN II-XII intact. Motor 5/5 strength in all extremities. Reflexes 2+/2 and symmetric in all extremities. Cerebellar testing no tremors. Gait normal
--- OUTSIDE RECORDS SUMMARY | 2025-06-17 11:30 | XMS_ITS ---
Author Organization [facility] [place] ([address]) Address [address] [place] [address] Care Team Providers Care Photo Editor Name Role Phone Jerad Barrera MD Primary Care Provider Unavailab Dr. Toni Cordova Unavailable [phone] Deonna Morton [phone] REASON FOR VISIT Botox BB Follow Up Encounters Encounter Location Date Provider Diagnosis [facility] [address] [place] [address] 06/17/2025 Deonna Morton Plan Of Treatment No Information Progress Notes * Araceli HAGER LDOB:[birth year] (45 yo F)Acc No.[id number]:06/17/2025 Progress Notes Patient: Krish CUADRADILLAN Araceli Lester Provider: Brian Morton APRN :1980 A ge:45 Y S ex:Female Date:06/17/2025 Address:[address], [id number] Pcp:Jerad Barrera MD Subjective: * Chief Complaints: * 1 . Botox BB Follow Up. * Medical History: Objective: * Vitals: Assessment: Plan: * Treatment: * Billing Information: * Visit Code: * Procedure Codes: * Electronic signature of CHERIE Pacheco on 08/11/2025 at 08:46 AM SACK MAKER Sign off status: Pending * Provider: Brian Morton APRN Date: 0 06/17/2025 Generated for Ritesh bellamy/Mariela/Shivani on: 1 10/11/2024 08:46 AM SACK MAKER
--- OUTSIDE RECORDS SUMMARY | 2025-07-06 04:00 | XMS_ITS ---
Author Organization [facility] Address [address] [place] [address] Care Team Providers Care [employer] Supervisor Name Role Phone AVUGHN FULTON, VALERIE Primary Care Provider UnavailMarlene Francis Unavailable [phone] Allergies Allergen (clinical drug ingredient) Drug/Non Drug Allergy documented on EMR Reaction Allergy Type Onset Date Status Non-steroidal anti-inflammatory agent (FN) NSAIDs hx of GI issues Drug Allergy Active REASON FOR VISIT Right Sacroiliac Joint Injection Medications Medication SIG (Take, Route, Frequency, Duration) Notes Start Date End Date Status tiZANidine HCl 4 MG 1-2 tablets at bedti me as needed Orally at bedtime as needed for 30 days 06/17/2025 Active lamoTRIgine 200 MG 1 tablet Orally Once a day weaning off Active clonazePAM 0.5 MG 1 tablet Orally 4 ti mes a day weaning off Active Tylenol 325 MG 1 capsule as needed Orally every 6 hrs Active Encounters Encounter Location Date Provider Diagnosis [facility] [address] 07/06/2025 Marlene Russ Sacroiliitis, not elsewhere classified M46.1 Assessments Encounter Date Diagnosis (ICD Code) Assessment Notes Treatment Notes Treatment Clinical Notes Section Notes 07/06/2025 Sacroiliitis, not elsewhere classified (ICD-10 - M46.1) Plan Of Treatment No Information Procedure Notes * Category Sub-Category Detail Notes Radiology Interpretation Minimal degenerative ch anges at in the R SI joint Progress Notes * Bautista HAGER: 978 (45 yo F)Acc No.[id number]:07/06/2025 Injection Patient: Araceli ABRAHAM Provider: Arvind Russ MD :1980 A ge:45 Y S ex:Female Date:07/06/2025 Address:[facility] [place] [address] Pcp:VALERIE MENDES MD Subjective: * Chief Complaints: * 1 . Right Sacroiliac Joint Injection. * HPI: C omplaints: PROCEDURE NOTE PROCEDURE: 1. Sacroiliac joint injection on the Right 2. SI joint arthrogram 3. Radiographic interpretation of sacroiliac joint. 4. Fluoroscopic imaging for precise needle position localization DIAGNOSIS: 1. Sacroilitis MEDICATION USED: 1. SI joint local anesthetic: 3 ml marcaine 0.5%, 2. Local anesthetic:5 ml lidocaine 1% 3. Intraarticular steroid: 80 mg Depo-Medrol (methylprednisolone) 4. Contrast agent: 3 ml Omnipaque-300, SUBJECTIVE: This patient presents today for a Right sacroiliac joint injection. PROCEDURE DESCRIPTION: Informed consent for the procedure was obtained and the patient signed the procedure consent form. The patient was given sufficient time to ask questions related to the procedure and to discuss expectations and the overall plan of treatment. The patient was brought into the procedure room and placed in the appropriate position for the procedure as noted above. Betadine (or alcohol if the patient carried an iodine allergy history) was used to prepare the skin over the appropriate location for the injection and sterile drapes were applied. Strict aseptic technique was followed during the procedure. The patient was brought into the procedure room and placed in the appropriate position for the procedure above. An initial RADIOLOGIC EXAMINATION, of the SACROILIAC JOINTS; LESS THAN THREE VIEWS was performed with a c-arm fluoroscope. The initial survey found moderate degenerative changes noted through the SI joint. A 22 Ga spinal needle was used for the procedure. This was advanced directly into the joint using oblique and angulated fluoroscopic views to most clearly define the caudal aspect of the posterior SI joint line. Once needle placement was confirmed within the joint by various fluoroscopic views and by the use of contrast agent, the patient received the steroid and local anesthetic as noted above after careful aspiration for blood. The SI joint arthrogram, if performed, is reported below. The patient had no ill effects from the procedure. The patient was taken to and watched in the recovery area for an appropriate period of time and then released to home once discharge criteria were met and discharge planning/subsequent appointments were made. SI JOINT ARTHROGRAM: 1. Contrast was seen to spread evenly within the joint FLUOROSCOPIC IMAGING FINDINGS: An initial survey of the SI joint was performed with the C-arm fluoroscope. 2 views were obtained of the sacrioliac joint. The following were noted: 1. moderate degenerative changes were noted throughout the sacroiliac joint. COMPLICATIONS: NONE RESULTS: Percentage of relief 90% PLAN: 1. Follow post procedure instructions and complete post procedure diary. 2. Continue medications as previously prescribed. 3. Follow up appointment within several weeks to check on patient post injection and to make any necessary medication adjustment and determine subsequent treatment steps. * Medical History: H ypertension, Depression, Migraines, Insomnia, Anxiety, Gastrointestinal Issues. * Medications: T aking Tylenol 325 MG Capsule 1 capsule as needed Orally every 6 hrs , Taking clonazePAM 0.5 MG Tablet 1 tablet Orally 4 times a day , Notes to Pharmacist: weaning off, Taking lamoTRIgine 200 MG Tablet 1 tablet Orally Once a day , Notes to Pharmacist: weaning off, Taking tiZANidine HCl 4 MG Tablet 1-2 tablets at bedtime as needed Orally at bedtime as needed , Medication List reviewed and reconciled with the patient * Allergies: N SAIDs: hx of GI issues. Objective: * Vitals: Assessment: * Assessment: 1. S acroiliitis, not elsewhere classified - M46.1 (Primary) Plan: * Treatment: * Procedures: R adiology Interpretation: Minimal degenerative changes at i n the R SI joint. ? * Procedure Codes: 2 7096 INJECT SACROILIAC JOINT, Modifiers: RT , 52878 X-RAY EXAM SACROILIAC JOINTS, J1010 Injection, methylprednisolone acetate, 1 mg, Units: 80.00 , Modifiers: JZ * * Electronic signature of Marlene Russ MD on 08/11/2025 at 08:47 AM STRATEGIC ACCOUNTS MANAGER Sign off status: Pending * Provider: Arvind Russ MD Date: 0 07/06/2025 Generated for Ritesh bellamy/Mariela/eTransmitting on: 1 10/11/2024 08:47 AM STRATEGIC ACCOUNTS MANAGER History and Physical Notes * HPI (History of Present Illness) Category Sub-Category Detail Notes Category Not es Complaints PROCEDURE NOTE PROCEDURE: 1. Sacroiliac joint injection on the Right 2. SI joint arthrogram 3. Radiographic interpretation of sacroiliac joint. 4. Fluoroscopic imaging for precise needle position localization DIAGNOSIS: 1. Sacroilitis MEDICATION USED: 1. SI joint local anesthetic: 3 ml marcaine 0.5%, 2. Local anesthetic:5 ml lidocaine 1% 3. Intraarticular steroid: 80 mg Depo-Medrol (methylprednisolone) 4. Contrast agent: 3 ml Omnipaque-300, SUBJECTIVE: This patient presents today for a Right sacroiliac joint injection. PROCEDURE DESCRIPTION: Informed consent for the procedure was obtained and the patient signed the procedure consent form. The patient was given sufficient time to ask questions related to the procedure and to discuss expectations and the overall plan of treatment. The patient was brought into the procedure room and placed in the appropriate position for the procedure as noted above. Betadine (or alcohol if the patient carried an iodine allergy history) was used to prepare the skin over the appropriate location for the injection and sterile drapes were applied. Strict aseptic technique was followed during the procedure. The patient was brought into the procedure room and placed in the appropriate position for the procedure above. An initial RADIOLOGIC EXAMINATION, of the SACROILIAC JOINTS; LESS THAN THREE VIEWS was performed with a c-arm fluoroscope. The initial survey found moderate degenerative changes noted through the SI joint. A 22 Ga spinal needle was used for the procedure. This was advanced directly into the joint using oblique and angulated fluoroscopic views to most clearly define the caudal aspect of the posterior SI joint line. Once needle placement was confirmed within the joint by various fluoroscopic views and by the use of contrast agent, the patient received the steroid and local anesthetic as noted above after careful aspiration for blood. The SI joint arthrogram, if performed, is reported below. The patient had no ill effects from the procedure. The patient was taken to and watched in the recovery area for an appropriate period of time and then released to home once discharge criteria were met and discharge planning/subsequent appointments were made. SI JOINT ARTHROGRAM: 1. Contrast was seen to spread evenly within the joint FLUOROSCOPIC IMAGING FINDINGS: An initial survey of the SI joint was performed with the C-arm fluoroscope. 2 views were obtained of the sacrioliac joint. The following were noted: 1. moderate degenerative changes were noted throughout the sacroiliac joint. COMPLICATIONS: NONE RESULTS: Percentage of relief 90% PLAN: 1. Follow post procedure instructions and complete post procedure diary. 2. Continue medications as previously prescribed. 3. Follow up appointment within several weeks to check on patient post injection and to make any necessary medication adjustment and determine subsequent treatment steps.
--- OUTSIDE RECORDS SUMMARY | 2025-07-08 11:30 | XMS_ITS ---
Author Organization [facility] [place] ([address]) Address [address] [place] [address] Care Team Providers Care Manager Critical Care Name Role Phone Jerad Barrera MD Primary Care Provider Unavailab Dr. Toni Cordova Unavailable [phone] Deonna Morton [phone] REASON FOR VISIT Botox BB Follow Up Encounters Encounter Location Date Provider Diagnosis [facility] [address] [place] [address] 07/08/2025 Deonna Morton Plan Of Treatment No Information Progress Notes * Araceli HAGER LDOB:[birth year] (45 yo F)Acc No.[id number]:07/08/2025 Progress Notes Patient: Krish CUADRADILLAN Araceli Lester Provider: Brian Morton APRN :1980 A ge:45 Y S ex:Female Date:07/08/2025 Address:[address], [id number] Pcp:Jerad Barrera MD Subjective: * Chief Complaints: * 1 . Botox BB Follow Up. * Medical History: Objective: * Vitals: Assessment: Plan: * Treatment: * Billing Information: * Visit Code: * Procedure Codes: * Electronic signature of CHERIE Pacheco on 08/11/2025 at 08:47 AM REHABILITATION ENGINEER Sign off status: Pending * Provider: Brian Morton APRN Date: Generated for Ritesh bellamy/Mariela/Shivani on: 10/11/2024 08:47 AM REHABILITATION ENGINEER
--- OUTSIDE RECORDS SUMMARY | 2025-08-11 08:47 | XMS_ITS | Clinical Summary ---
Author Organization [facility] Address [facility] [place] [address] Care Team Providers Care Control Valve Technician Name Role Phone Jerad Barrera MD Primary Care Provider [phone] Encounters Date Type Department Care Team Description 06/30/2025 Travel 06/22/2025 7:45 AM CDT - 06/22/2025 11:59 PM CDT Hospital Encounter [facility] [address] [place] [address] Kaedn Russ MD Discharge Disposition: Home or Self Care (Routine Discharge) 06/22/2025 Travel from Last 3 Months Social History Tobacco Use Types Packs/Day Years Used Date Smoking Tobacco: Never Assessed Comments Unknown Sex and Gender Information Value Date Recorded Sex Assigned at Not on file Legal Sex Female 7:00 PM CDT Gender Identity Not on file Sexual Orientation Not on file Plan of Treatment Health Maintenance Due Date Last Done Comments Cervical Cancer Screening Pa p Smear (Age 30 to 64) Every 3 Years 1980 Colorectal Cancer Screening Colonoscopy (10 Years) 1978 Annual Physical 1981 Hepatitis C 01/31/1996 DTaP, Tdap and Td Vaccines ( 1 - Tdap) 1997 Hepatitis B Vaccines (1 of 3 - 19+ 3-dose series) 1997 Cervical Cancer Screening Pa p with HPV Testing (Age 30 to 64) Every 5 Years 01/31/2008 Cervical Cancer Screening with HPV 01/31/2008 Mammogram Screening 2018 COVID-19 Vaccine (2024-2 6 season) 2025 Influenza Adult (#1) 2025 Hepatitis A Vaccines Aged Out No long er eligible based on patient's age to complete this topic Meningococcal B Vaccine Aged Out No l onger eligible based on patient's age to complete this topic Meningococcal Vaccine Aged Out No kip benoit eligible based on patient's age to complete this topic Pneumococcal Vaccine: Pediat rics (0 to 5 Years) and At-Risk Patients (6 to 49 Years) Aged Out No longer eligible b ased on patient's age to complete this topic RSV Immunizations Under 20 Months Aged Out No longer eligible based on patient's age to complete this topic Procedures Procedure Name Priority Date/Time Associated Diagnosis Comments XR HIP RT 2V Routine 06/22/2025 8:28 AM CDT Sacroiliitis XR PELVIS MIN 3V Routine 06/22/2025 8:28 AM CDT Sacroiliitis from Last 3 Months Results * XR PELVIS MIN 3V (06/22/2025 8:28 AM CDT) Anatomical Region Laterality Modality Pelvis Radiographic Mitzi ging 06/23/2025 8:34 AM CDT Impressions 06/23/2025 3:09 PM CDT =====IMPRESSION:===== Subtle hypertrophic changes of the sacral joints. Possible minimal narrowing of the hip joints bilaterally. Minimal osteoarthritis is possible. Ordered By: KADEN RUSS Interpreted By: Jose Mo MD, 06/23/2025 8:34 AM Narrative 06/23/2025 3:[address] [facility] [address] [place] [address] EXAMINATION: Right hip, 2 views and 3 views pelvis [id number] EXAM DATE/TIME: 06/22/2025 8:10 AM REASON FOR EXAM: sacroiliitis COMPARISON: None TECHNIQUE: AP and frog views of the right hip and 3 views of the pelvis were obtained. FINDINGS: Minimal spurring about the sacroiliac joints is seen bilaterally. No ankylosis is noted. The right hip shows no evidence of fracture, dislocation, or spur formation. Subtle joint space narrowing bilaterally in the hips is possible. Procedure Note Jose Mo MD - 06/23/2025 [facility] [address] [place] [address] EXAMINATION: Right hip, 2 views and 3 views pelvis [id number] EXAM DATE/TIME: 06/22/2025 8:10 AM REASON FOR EXAM: sacroiliitis COMPARISON: None TECHNIQUE: AP and frog views of the right hip and 3 views of the pelviswere obtained. FINDINGS: Minimal spurring about the sacroiliac joints is seenbilaterally. No ankylosis is noted. The right hip shows no evidence of fracture, dislocation, or spurformation. Subtle joint space narrowing bilaterally in the hips ispossible. =====IMPRESSION:===== Subtle hypertrophic changes of the sacral joints. Possible minimal narrowing of the hip joints bilaterally. Minimalosteoarthritis is possible. Ordered By: KADEN RUSS Interpreted By: Jose Mo MD, 06/23/2025 8:34 AM us Kaden Russ MD GENERAL IMAGING Final Resu lt * XR HIP RT 2V (06/22/2025 8:28 AM CDT) Anatomical Region Laterality Modality Hip Radiographic Mitzi ging 06/23/2025 8:34 AM CDT Impressions 06/23/2025 3:09 PM CDT =====IMPRESSION:===== Subtle hypertrophic changes of the sacral joints. Possible minimal narrowing of the hip joints bilaterally. Minimal osteoarthritis is possible. Ordered By: KADEN RUSS Interpreted By: Jose Mo MD, 06/23/2025 8:34 AM Narrative 06/23/2025 3:[address] [facility] [address] [place] [address] EXAMINATION: Right hip, 2 views and 3 views pelvis [id number] EXAM DATE/TIME: 06/22/2025 8:10 AM REASON FOR EXAM: sacroiliitis COMPARISON: None TECHNIQUE: AP and frog views of the right hip and 3 views of the pelvis were obtained. FINDINGS: Minimal spurring about the sacroiliac joints is seen bilaterally. No ankylosis is noted. The right hip shows no evidence of fracture, dislocation, or spur formation. Subtle joint space narrowing bilaterally in the hips is possible. Procedure Note Jose Mo MD - 06/23/2025 [facility] [address] [place] [id number] EXAMINATION: Right hip, 2 views and 3 views pelvis [id number] EXAM DATE/TIME: 06/22/2025 8:10 AM REASON FOR EXAM: sacroiliitis COMPARISON: None TECHNIQUE: AP and frog views of the right hip and 3 views of the pelviswere obtained. FINDINGS: Minimal spurring about the sacroiliac joints is seenbilaterally. No ankylosis is noted. The right hip shows no evidence of fracture, dislocation, or spurformation. Subtle joint space narrowing bilaterally in the hips ispossible. =====IMPRESSION:===== Subtle hypertrophic changes of the sacral joints. Possible minimal narrowing of the hip joints bilaterally. Minimalosteoarthritis is possible. Ordered By: KADEN RUSS Interpreted By: Jose Mo MD, 06/23/2025 8:34 AM us Kaden Russ MD GENERAL IMAGING Final Resu lt from Last 3 Months Insurance [facility] Care Teams Control Valve Technician Relationship Specialty Start Date End Date Jerad Barrera MD [address] [place] [address] JEANIE GORDON [phone] PCP - General FAMILY PRACTICE 06/22/25
--- OUTSIDE RECORDS SUMMARY | 2025-08-11 08:47 | XMS_ITS | Encounter Summary ---
Author Organization [facility] Address [address] [place] [address] Care Team Providers Care Panelboard Assembler Name Role Phone Unavailable Primary Care Provider Unavailabl e Encounter Details Date Type Department Care Team (Late st Contact Info) Description 01/01/2009 Outpatient [facility] Cami Murphy MD NO ADDRESS ON FILE Social History Tobacco Use Types Packs/Day Years Used Date Smoking Tobacco: Never Assessed Comments Unknown Sex and Gender Information Value Date Recorded Sex Assigned at Female 04/04/2024 8:32 AM CDT Legal Sex Female 5:42 AM LICENSING DIRECTOR Gender Identity Female 04/04/2024 8:32 AM CDT Sexual Orientation Straight 04/04/2024 8: 32 AM CDT documented as of this encounter Plan of Treatment Not on file documented as of this encounter Visit Diagnoses Not on filedocumented in this encounter
--- OUTSIDE RECORDS SUMMARY | 2025-08-11 08:47 | XMS_ITS | Patient Health Record ---
Author Organization [facility] As [employer] [facility] Address [address] [facility] [address] [place] [address] Care Team Providers Care Press Service Reader Name Role Phone Bruce FULTON, Jerad Primary Care Provider Unavailab Marisa Barillas Unavailable [phone] Allergies No Known Allergies Results Component Value Reference Range Flag Notes TEST AUTHORIZATION Reviewed date:08/27/2024 11:49:54 AM Interpretation: Performing Lab:[facility]-[id number] Fariha RuedaaKS[address] Eun Lyn MD Notes/Report: FASTING: NO TEST NAME: DRUG MONITOR, NITHIN, TEST CODE: [id number] CLIENT CONTACT: YASMINE GRAHAM REPORT ALWAYS MESSAGE SIGNATURE The laboratory testing on this patient was verbally requested or confirmed by the ordering physician or his or her authorized payable representative after contact with an employee of [employer]. Federal regulations require that we maintain on file written authorization for all laboratory testing. Accordingly we are asking that the ordering physician or his or her authorized payable representative sign a copy of this report and promptly return it to the client success director. Signature: COMMENT Fax number: [phone] [place] [facility] [place] ([id number]) Reviewed date:08/26/2024 12:25:13 PM Interpretation: Performing Lab:[facility]-[id number] Fariha RuedaaKS[address] Eun Lyn MD Notes/Report: FASTING: NO QUESTION/PROBLEM: There is a question regarding the following specimen submitted and/or the test requested. QUESTION: Verify duplicate Drug Testing. Please contact [facility] to verify the urine drug testing needed for this patient as the tests ordered (codes [id number] and [id number]) contain duplicate testing and therefore cannot be ordered on the same requisition. CONTACT: COMMENT REQUESTED INFORMATION AUTHORIZED SIGNATURE TO PREVENT FURTHER DELAYS IN TESTING, PLEASE COMPLETE INFORMATION ABOVE AND FAX TO [phone] TO RESOLVE THIS ORDER. Your request to have a duplicate copy faxed has been acknowledged. Queued to: [id number] DRUG MONITOR, BENZO, QN, URI NE ([id number]) Reviewed date:09/17/2024 07:45:51 AM Interpretation: Performing Lab:[facility]-Amandeep [id number] [facility] [id number] Brad Cleary, Director - [id number] [facility] Notes/Report: FASTING: NO Alphahydroxyalprazolam TNP N TEST NOT PERFORMED Due to a laboratory error, the specimen was inadvertently routed to the incorrect department or laboratory and is no longer valid for testing. Notes and Comments This drug testing is for medical treatment only. Analysis was performed as non-forensic testing and these results should be used only by healthcare providers to render diagnosis or treatment, or to monitor progress of medical conditions. Healthcare Providers needing Interpretation assistance, please contact us at [phone] ( ) M-F, 8am to 10pm EST UDT Reviewed date:08/21/2024 09:14:59 AM Interpretation: Performing Lab: Notes/Report: Amphetamine (AMP) N 0 - 1000 ng/ml Buprenorphine (BUP) N 0 - 10 ng/ml Oxazepam (BZO) N 0 - 300 ng/ml Cocaine (JENNA) N 0 - 300 ng/ml Methamphetamine (mAMP) P 0 - 300 ng/ml Methylenedioxymethamphetamin e (MDMA) N 0 - 500 ng/ml Morphine (MOP) N 0 - 25 ng/ml Methadone (MTD) N 0 - 300 ng/ml Oxycodone (OXY) N 0 - 300 ng/ml THC N 0 - 50 ng/ml x N 0 - 1000 ng/ml x N 0 - 1000 ng/ml x N 0 - 300 ng/ml x N 0 - 300 ng/ml x N 0 - 300 ng/ml UDT Reviewed date:11/24/2024 08:55:35 AM Interpretation: Performing Lab: Notes/Report: Amphetamine (AMP) NEG 0 - 1000 ng/ml Buprenorphine (BUP) NEG 0 - 10 ng/ml Oxazepam (BZO) NEG 0 - 300 ng/ml Cocaine (JENNA) NEG 0 - 300 ng/ml Methamphetamine (mAMP) NEG 0 - 300 ng/ml Methylenedioxymethamphetamin e (MDMA) NEG 0 - 500 ng/ml Morphine (MOP) NEG 0 - 25 ng/ml Methadone (MTD) NEG 0 - 300 ng/ml Oxycodone (OXY) NEG 0 - 300 ng/ml THC NEG 0 - 50 ng/ml x NEG 0 - 1000 ng/ml x NEG 0 - 1000 ng/ml x NEG 0 - 300 ng/ml x NEG 0 - 300 ng/ml x NEG 0 - 300 ng/ml UDT Reviewed date:05/20/2025 09:28:51 AM Interpretation: Performing Lab: Notes/Report: Amphetamine (AMP) N 0 - 1000 ng/ml Buprenorphine (BUP) N 0 - 10 ng/ml Oxazepam (BZO) N 0 - 300 ng/ml Cocaine (JENNA) N 0 - 300 ng/ml Methamphetamine (mAMP) N 0 - 300 ng/ml Methylenedioxymethamphetamin e (MDMA) N 0 - 500 ng/ml Morphine (MOP) N 0 - 25 ng/ml Methadone (MTD) N 0 - 300 ng/ml Oxycodone (OXY) N 0 - 300 ng/ml THC N 0 - 50 ng/ml x N 0 - 1000 ng/ml x N 0 - 1000 ng/ml x N 0 - 300 ng/ml x N 0 - 300 ng/ml UDT Reviewed date:06/24/2025 09:18:10 AM Interpretation: Performing Lab: Notes/Report: Amphetamine (AMP) n 0 - 1000 ng/ml Buprenorphine (BUP) n 0 - 10 ng/ml Oxazepam (BZO) p 0 - 300 ng/ml Cocaine (JENNA) n 0 - 300 ng/ml Methamphetamine (mAMP) n 0 - 300 ng/ml Methylenedioxymethamphetamin e (MDMA) n 0 - 500 ng/ml Morphine (MOP) n 0 - 25 ng/ml Methadone (MTD) n 0 - 300 ng/ml Oxycodone (OXY) n 0 - 300 ng/ml THC n 0 - 50 ng/ml x n 0 - 1000 ng/ml x n 0 - 1000 ng/ml x n 0 - 300 ng/ml x n 0 - 300 ng/ml Reason For Referral No Information Medications Medication SIG (Take, Route, Frequency, Duration) Notes Start Date End Date Status lamoTRIgine 100 MG Tablet 1 tablet at bedtime Oral Once a day; Duration: 30 days no refill needed 07/22/2025 Active clonazePAM 0.5 MG Tablet 1 tablet Orally twice a day; Duration: 30 days 06/03/2025 Active Nurtec 75 MG Tablet Disintegrating 1 tablet on the tongue and allow to dissolve Oral every other day *Reorder from [employer] for eRx and Interaction Alerts* 01/27/2024 Not-Taking lamoTRIgine 200 MG Tablet TAKE 1 TABLET ONCE DAILY ATBEDTIME; Duration: 90 Not-Taking Social History Tobacco Use: Social History Observation Description Date Details (start date - stop date) Current Smoker 01/31/1992 - NA Sex Assigned At : Social History Observation Description Sex Assigned At Female Social History Miscellaneous: Social Info Question Answer Notes Advance Care Planning Are you your own decision-maker Yes Do you have Power of Law Clerk for Health or [facility]? No Drug/Alcohol: Social Info Question Answer Notes Caffeine Intake: none Tobacco Use: Social Info Question Answer Notes Tobacco Control (Standard) Tobacco use: Current every day smoker When did you start smoking? 01/31/1992 Additional Details Category Social Info Options Details Migrated Social History Migrated Social History Alcohol Intake: None 01/27/2024,Tobacco Years: Current every day smoker 01/27/2024 Drug/Alcohol: Do you smoke marijuana? Den ies Do you drink alcohol? No Problems Problem Type SNOMED Code ICD Code Onset Dates Problem Status W/U Status Risk Notes Problem Mild recurrent major depression (39225731) Major depressive disorder, recurrent, mild (F33.0) 01/27/20 Active confirmed Problem Generalized anxiety disorder (18301896) Generalized anxiety disorder (F41.1) 01/27/20 Active confirmed Problem Primary insomnia (2795900) Primary insomnia (F51.01) 01/27/20 Active confirmed Problem Screening for cardiovascular system disease (124966303) Encounter for screening for cardiovascular disorders (Z13.6) Active confirmed Problem Tobacco use (040903038) Tobacco use (Z72.0) 01/27/20 Active confirmed Problem Long-term current use of drug therapy (199462328) Other technician terminal and repeater (current) drug therapy (Z79.899) 01/27/20 Active confirmed Problem Depression Screening (454302217) Encounter for screening for depression (Z13.31) Active confirmed Problem Generalized anxiety disorder (47293738) SARAH (generalized anxiety disorder) (F41.1) Active confirmed Problem Severe recurrent major depression without psychotic features (56427498) Severe episode of recurrent major depressive disorder, without psychotic features (F33.2) Active confirmed Problem Moderate recurrent major depression (97529959) MDD (major depressive disorder), recurrent episode, moderate (F33.1) Active confirmed Problem Major depressive disorder, single episode, severe with psychotic features (827272423) Major depressive disorder with psychotic features (F32.3) Active confirmed Vital Signs Heart Rate 102 /min 06/24/2025 Respiratory Rate 16 /min 06/24/2025 Height-cm 154.94 cm 06/24/2025 Blood pressure diastolic 79 mm Hg 06/24/2025 Weight-kg 51.71 kg 06/24/2025 Height 61.00 in 06/24/2025 Blood pressure systolic 133 mm Hg 06/24/2025 Weight 114 lbs 06/24/2025 BMI 21.54 kg/m2 06/24/2025 Encounters Encounter Location Date Provider Diagnosis [facility] [address] [address] 08/21/2024 Marisa Thery Generalized anxiety disorder F41.1 ; Major depressive disorder with psychotic features F32.3 ; Primary insomnia F51.01 ; Tobacco use Z72.0 and Other chcf (current) drug therapy Z79.899 [facility] [address] [address] 11/24/2024 Marisa Thery Generalized anxiety disorder F41.1 ; MDD (major depressive disorder), recurrent episode, moderate F33.1 ; Primary insomnia F51.01 ; Tobacco use Z72.0 and Other technician terminal and repeater (current) drug therapy Z79.899 [facility] [address] [address] 02/18/2025 Marisa Thery Encounter for screen ing for depression Z13.31 ; MDD (major depressive disorder), recurrent episode, moderate F33.1 ; Encounter for screening for cardiovascular disorders Z13.6 ; Generalized anxiety disorder F41.1 ; Primary insomnia F51.01 ; Tobacco use Z72.0 and Other technician terminal and repeater (current) drug therapy Z79.899 [facility] [address] [address] 05/20/2025 Marisa Thery Encounter for screen ing for depression Z13.31 ; MDD (major depressive disorder), recurrent episode, moderate F33.1 ; Encounter for screening for cardiovascular disorders Z13.6 ; Generalized anxiety disorder F41.1 ; Primary insomnia F51.01 ; Tobacco use Z72.0 and Other technician terminal and repeater (current) drug therapy Z79.899 [facility] [address] [address] 06/03/2025 Marisa Thery Encounter for screen ing for depression Z13.31 ; MDD (major depressive disorder), recurrent episode, moderate F33.1 ; Encounter for screening for cardiovascular disorders Z13.6 ; Generalized anxiety disorder F41.1 ; Primary insomnia F51.01 ; Tobacco use Z72.0 and Other chcf (current) drug therapy Z79.899 [facility], [facility] [address] [place] [address] 06/24/2025 Marisa Garcia MDD (major depressiv e disorder), recurrent episode, moderate F33.1 ; Generalized anxiety disorder F41.1 ; Primary insomnia F51.01 and Tobacco use Z72.0 [facility], [facility] [address] [place] [address] 07/22/2025 Marisa Garcia MDD (major depressiv e disorder), recurrent episode, moderate F33.1 ; Generalized anxiety disorder F41.1 ; Primary insomnia F51.01 and Tobacco use Z72.0 [facility], [facility] [address] [place] [address] 08/26/2024 Marisa Garcia [facility], [facility] [address] [place] [address] 09/16/2024 Marisa Therravi [facility], [facility] [address] [place] [address] 09/17/2024 Marisa Airseedravi [facility], [facility] [address] [place] [address] 09/17/2024 Marisa Garcia [facility], [facility] [address] [place] [address] 09/18/2024 Marisa Therravi [facility], [facility] [address] [place] [address] 09/22/2024 Marisa Therravi [facility], [facility] [address] [place] [address] 09/22/2024 Marisa Therravi [facility], [facility] [address] [place] [address] 09/22/2024 Marisa Therravi [facility], [facility] [address] [place] [address] 09/22/2024 Marisa Jose [facility], [facility] [address] [place] [address] 09/28/2024 Marisa Jose [facility], [facility] [address] [place] [address] 09/28/2024 Marisa Jose Primary insomnia F51 .01 [facility] [address] [place] [address] 10/02/2024 Marisa Jose [facility], [facility] [address] [place] [address] 10/02/2024 Marisa Jose [facility], [facility] [address] [place] [address] 10/15/2024 Marisa Jose [facility], [facility] [address] [place] [address] 10/15/2024 Marisa Garcia Assessments Encounter Date Diagnosis (ICD Code) Assessment Notes Treatment Notes Treatment Clinical Notes Section Notes 09/28/2024 Primary insomnia (ICD-10 - F51.01) 11/24/2024 Generalized anxiety disorder (ICD-10 - F41.1) Generalized Anxiety Disorder: Care Instructions material was published, Learning About Anxiety Disorders material was published, Learning About Transcranial Magnetic Stimulation (TMS) material was published 1.major depression - continue depression- medical issues - colonoscopy scheduled 11/24/23 hx auditory hallucinations- refer to neurologist and r/o migrianes and insomnia cause- psychosis improved and sleep improved with migraine improved on Botox educated and discuss Lamotrigine 200 mg po hs - [facility] patient does not want to add or change rx at this time Second generation antipsychotics (SGAs) have metabolic syndrome issues with weight gain, increase in prolactin, increased waist circumference, increased lipids, and increased glucose. Thus routine monitoring of weight, metabolic labs, etc. is indicated. A general rank ordering of antipsychotics that have the greatest to the least risk of metabolic effects is olanzapine, quetiapine, risperidone, ziprasidone, and aripiprazole. However, weight gain can occur with all of these drugs and considerable variability exists among patients receiving the same drug regarding the risk of metabolic effects. Anti-psychotic agents not only increase the risk of metabolic disorder, they also increase the risk of CVA, akathisia, and movement disorders including EPS or tardive dyskinesia (more common with first generation antipsychotics) and more. GENE SIGHT RESULTS REVIEWED and copy given to patient educated on all medications, benefits, side effects and risk, and educated on depression, anxiety, and mood d/o and educated on compliance of medications, metabolic and movement d/o education appointment is, continue therapy discussion with patient about course of treatment and patient instructions. education on serotonin syndrome different dxn Bipolar II Lamotrigine lamotrigine has a serious rashes requiring hospitalization and discontinue treatment includingSteven Gordy syndrome rare case of toxic epidermal necrolysis and cache related deaths.Incidence with adjunct of epilepsy treatment 0.8% in 2 to 16 years old and 0.3% in adults, bipolarand other mood disorders incidence 0.8% this initial monotherapy and 0.13% as adjunctivetreatment. Other risk factor may include concomitant use of valproate acid derivative or exceeding initiallamotrigine does or does as clinician recommendation; most life-threatening rash of occurring first 2to 8 week of treatment with isolated cases after prolonged treatment; though benign may occur,discontinue treatment at first sign of rash unless clearly not a drug related; TC treatment may notprevent trash from becoming life-threatening or permanently disabling or disfiguring.Comment reaction include, nausea/vomiting, dizziness/vertigo, visual disturbances, somnolence,ataxia, pruritus/rash, pharyngitis, headache, rhinitis, diarrhea, fever, asthenia, insomnia, tremor,abdominal pain, cough, accidental injury, constipation, dysmenorrhea, incoordination, anxiety,seizures, irritability, anorexia, xerostomia, and photosensitivity.Ser ious reactions include: Rash, severe; Smith Gordy syndrome; toxic epidermal necrosis;injury edema, hypersensitivity reactions. Including fatal, multiple organ failure to safe fatal, rash witheosinophilia systemic symptoms, DIC, neutropenia, leukopenia, thrombocytopenia, pancytopenia,aplasti c anemia, hemolytic anemia, i pancreatitis, hepatic failure, rhabdomyolysis, worsening ofsuicidal ideation, worsening of depression, cleft lip/palate [first trimester use]DO not Change Cosmetic, perfumes or soap for next 4 weeks.The patient was advice to take lamotrigine as prescribed the patient was instructed not to deviatefrom the prescription dosages. Stop lamotrigine is the first sign of rash. Patient was insisted to informoffice if any of the serious side effect develops. discuss therpay options- patient does not want at this time lamotrigine 200 mg tablet - Take 1 tablet(s) every day by oral route at bedtime 2. Generalized anxiety disorder -Clonazepam 1.5 mg PO HS [facility] local pharmacy in [place] no early refills on control substance educated on no control substance prescribed if cannabis or illegal substance or ETOH abuse UDS and random - SSRI/SNRI side effects discussed including but not limited to, gastric upset, nausea, vomiting, diarrhea and/or constipation, weight changes, sexual side effects including loss of libido, increased suicidal thoughts/behaviors in children and young adults, and serotonin syndrome. colonoscopy 2013refused flu vaccinesrefused COVID vaccines Discussed and educated pt regarding benzodiazepines are generally not intended for prolonged use and that use can cause tolerance, dependence, depression, and associated memory issues including dementias (this list is not exhaustive). Benzodiazepine use is generally not recommended concurrently with pain medications and/or other controlled substances due to increased risks of profound sedation, respiratory depression, coma, and even . They are not to be used with any alcohol, as this combination can also be lethal. Patient was provided caution http_s://www.[employer]/cannabis-us t-wufkuqkj-jcokairou -adhd/ http_s://www.maxwell.or g/Jarkj-Nxsvbp-Nqhlx ss/Sqpjik-Qodswv-Uji ditions http_s://psychcentra [employer]/depression/the -cognitive-symptoms- of-depression#treatm ents http__s://www.nimh.n ih.gov/health/topics /rdvutw-rwgyaq-ssvpf ations http__s://www.maxwell.o rg/Gqncd-Uuomox-Ijkg ess/Treatments/Menta q-Zxbpsa-Lmhqjcxgjgb 3. Tobacco user General health and safety guidelines: Do not smoke. Nicotine and other chemicals in cigarettes and cigars can cause lung damage. Ask your healthcare provider for information if you currently smoke and need help to quit. E-cigarettes or smokeless tobacco still contain nicotine. Talk to your healthcare provider before you use these products. 4. Primary insomnia see sleep provider 5. Long-term drug therapy -control substance agreement Clonazepam UDS 08/21/2024 Generalized anxiety disorder (ICD-10 - F41.1) Generalized Anxiety Disorder: Care Instructions material was published, Learning About Anxiety Disorders material was published, Learning About Transcranial Magnetic Stimulation (TMS) material was published 1.major depression - with auditory hallucinations- refer to neurologist and r/o migrianes and insomnia cause- psychosis improved and sleep improved with migraine improved on Botox educated and discuss patient stopped Seroquel 25 mg at bedtime - dizziness, and extreme fatigue Lamotrigine 200 mg po hs - [facility] Second generation antipsychotics (SGAs) have metabolic syndrome issues with weight gain, increase in prolactin, increased waist circumference, increased lipids, and increased glucose. Thus routine monitoring of weight, metabolic labs, etc. is indicated. A general rank ordering of antipsychotics that have the greatest to the least risk of metabolic effects is olanzapine, quetiapine, risperidone, ziprasidone, and aripiprazole. However, weight gain can occur with all of these drugs and considerable variability exists among patients receiving the same drug regarding the risk of metabolic effects. Anti-psychotic agents not only increase the risk of metabolic disorder, they also increase the risk of CVA, akathisia, and movement disorders including EPS or tardive dyskinesia (more common with first generation antipsychotics) and more. [employer] RESULTS REVIEWED and copy given to patient educated on all medications, benefits, side effects and risk, and educated on depression, anxiety, and mood d/o and educated on compliance of medications, metabolic and movement d/o education appointment is, continue therapy discussion with patient about course of treatment and patient instructions. education on serotonin syndrome different dxn Bipolar II Lamotrigine lamotrigine has a serious rashes requiring hospitalization and discontinue treatment includingSteven Gordy syndrome rare case of toxic epidermal necrolysis and cache related deaths.Incidence with adjunct of epilepsy treatment 0.8% in 2 to 16 years old and 0.3% in adults, bipolarand other mood disorders incidence 0.8% this initial monotherapy and 0.13% as adjunctivetreatment. Other risk factor may include concomitant use of valproate acid derivative or exceeding initiallamotrigine does or does as clinician recommendation; most life-threatening rash of occurring first 2to 8 week of treatment with isolated cases after prolonged treatment; though benign may occur,discontinue treatment at first sign of rash unless clearly not a drug related; TC treatment may notprevent trash from becoming life-threatening or permanently disabling or disfiguring.Comment reaction include, nausea/vomiting, dizziness/vertigo, visual disturbances, somnolence,ataxia, pruritus/rash, pharyngitis, headache, rhinitis, diarrhea, fever, asthenia, insomnia, tremor,abdominal pain, cough, accidental injury, constipation, dysmenorrhea, incoordination, anxiety,seizures, irritability, anorexia, xerostomia, and photosensitivity.Ser ious reactions include: Rash, severe; Smith Gordy syndrome; toxic epidermal necrosis;injury edema, hypersensitivity reactions. Including fatal, multiple organ failure to safe fatal, rash witheosinophilia systemic symptoms, DIC, neutropenia, leukopenia, thrombocytopenia, pancytopenia,aplasti c anemia, hemolytic anemia, i pancreatitis, hepatic failure, rhabdomyolysis, worsening ofsuicidal ideation, worsening of depression, cleft lip/palate [first trimester use]DO not Change Cosmetic, perfumes or soap for next 4 weeks.The patient was advice to take lamotrigine as prescribed the patient was instructed not to deviatefrom the prescription dosages. Stop lamotrigine is the first sign of rash. Patient was insisted to informoffice if any of the serious side effect develops. discuss therpay options- patient does not want at this time lamotrigine 200 mg tablet - Take 1 tablet(s) every day by oral route at bedtime 2. Generalized anxiety disorder -Clonazepam 1.5 mg PO [facility] local pharmacy in [place] no early refills on control substance educated on no control substance prescribed if cannabis or illegal substance or ETOH abuse UDS and random - SSRI/SNRI side effects discussed including but not limited to, gastric upset, nausea, vomiting, diarrhea and/or constipation, weight changes, sexual side effects including loss of libido, increased suicidal thoughts/behaviors in children and young adults, and serotonin syndrome. colonoscopy 2012refused flu vaccinesrefused COVID vaccines Discussed and educated pt regarding benzodiazepines are generally not intended for prolonged use and that use can cause tolerance, dependence, depression, and associated memory issues including dementias (this list is not exhaustive). Benzodiazepine use is generally not recommended concurrently with pain medications and/or other controlled substances due to increased risks of profound sedation, respiratory depression, coma, and even . They are not to be used with any alcohol, as this combination can also be lethal. Patient was provided caution http_s://www.add[employer].com/cannabis-us x-ivsdfype-obwadceok -adhd/ http_s://www.maxwell.or g/Pzdjr-Djxljy-Jroak ss/Dkicpq-Okmdbc-Qrq ditions http_s://psychcentra Keu[employer].com/depression/the -cognitive-symptoms- of-depression#treatm ents http__s://www.[facility].n ih.gov/health/topics /xlowag-mfcwna-ijafx ations http__s://www.maxwell.o rg/Pplxl-Wjaxux-Ijdq ess/Treatments/Menta p-Izillz-Hchpojwrlxg 3. Tobacco user General health and safety guidelines: Do not smoke. Nicotine and other chemicals in cigarettes and cigars can cause lung damage. Ask your healthcare provider for information if you currently smoke and need help to quit. E-cigarettes or smokeless tobacco still contain nicotine. Talk to your healthcare provider before you use these products. 4. Primary insomnia see sleep provider 5. Long-term drug therapy -control substance agreement Clonazepam UDS 11/24/2024 MDD (major depressive disorder), recurrent episode, moderate (ICD-10 - F33.1) 1.major depression - continue depression- medical issues - colonoscopy scheduled 11/24/23 hx auditory hallucinations- refer to neurologist and r/o migrianes and insomnia cause- psychosis improved and sleep improved with migraine improved on Botox educated and discuss Lamotrigine 200 mg po hs - [facility] patient does not want to add or change rx at this time Second generation antipsychotics (SGAs) have metabolic syndrome issues with weight gain, increase in prolactin, increased waist circumference, increased lipids, and increased glucose. Thus routine monitoring of weight, metabolic labs, etc. is indicated. A general rank ordering of antipsychotics that have the greatest to the least risk of metabolic effects is olanzapine, quetiapine, risperidone, ziprasidone, and aripiprazole. However, weight gain can occur with all of these drugs and considerable variability exists among patients receiving the same drug regarding the risk of metabolic effects. Anti-psychotic agents not only increase the risk of metabolic disorder, they also increase the risk of CVA, akathisia, and movement disorders including EPS or tardive dyskinesia (more common with first generation antipsychotics) and more. GENE SIGHT RESULTS REVIEWED and copy given to patient educated on all medications, benefits, side effects and risk, and educated on depression, anxiety, and mood d/o and educated on compliance of medications, metabolic and movement d/o education appointment is, continue therapy discussion with patient about course of treatment and patient instructions. education on serotonin syndrome different dxn Bipolar II Lamotrigine lamotrigine has a serious rashes requiring hospitalization and discontinue treatment includingSteven Gordy syndrome rare case of toxic epidermal necrolysis and cache related deaths.Incidence with adjunct of epilepsy treatment 0.8% in 2 to 16 years old and 0.3% in adults, bipolarand other mood disorders incidence 0.8% this initial monotherapy and 0.13% as adjunctivetreatment. Other risk factor may include concomitant use of valproate acid derivative or exceeding initiallamotrigine does or does as clinician recommendation; most life-threatening rash of occurring first 2to 8 week of treatment with isolated cases after prolonged treatment; though benign may occur,discontinue treatment at first sign of rash unless clearly not a drug related; TC treatment may notprevent trash from becoming life-threatening or permanently disabling or disfiguring.Comment reaction include, nausea/vomiting, dizziness/vertigo, visual disturbances, somnolence,ataxia, pruritus/rash, pharyngitis, headache, rhinitis, diarrhea, fever, asthenia, insomnia, tremor,abdominal pain, cough, accidental injury, constipation, dysmenorrhea, incoordination, anxiety,seizures, irritability, anorexia, xerostomia, and photosensitivity.Ser ious reactions include: Rash, severe; Smith Gordy syndrome; toxic epidermal necrosis;injury edema, hypersensitivity reactions. Including fatal, multiple organ failure to safe fatal, rash witheosinophilia systemic symptoms, DIC, neutropenia, leukopenia, thrombocytopenia, pancytopenia,aplasti c anemia, hemolytic anemia, i pancreatitis, hepatic failure, rhabdomyolysis, worsening ofsuicidal ideation, worsening of depression, cleft lip/palate [first trimester use]DO not Change Cosmetic, perfumes or soap for next 4 weeks.The patient was advice to take lamotrigine as prescribed the patient was instructed not to deviatefrom the prescription dosages. Stop lamotrigine is the first sign of rash. Patient was insisted to informoffice if any of the serious side effect develops. discuss therpay options- patient does not want at this time lamotrigine 200 mg tablet - Take 1 tablet(s) every day by oral route at bedtime 2. Generalized anxiety disorder -Clonazepam 1.5 mg PO HS [facility] local pharmacy in [place] no early refills on control substance educated on no control substance prescribed if cannabis or illegal substance or ETOH abuse UDS and random - SSRI/SNRI side effects discussed including but not limited to, gastric upset, nausea, vomiting, diarrhea and/or constipation, weight changes, sexual side effects including loss of libido, increased suicidal thoughts/behaviors in children and young adults, and serotonin syndrome. colonoscopy 2012refused flu vaccinesrefused COVID vaccines Discussed and educated pt regarding benzodiazepines are generally not intended for prolonged use and that use can cause tolerance, dependence, depression, and associated memory issues including dementias (this list is not exhaustive). Benzodiazepine use is generally not recommended concurrently with pain medications and/or other controlled substances due to increased risks of profound sedation, respiratory depression, coma, and even . They are not to be used with any alcohol, as this combination can also be lethal. Patient was provided caution http_s://www.[employer]/cannabis-us u-hmfokgyu-edbwmzavq -adhd/ http_s://www.[employer].or g/Evymg-Wlmqff-Yskxx ss/Ztunzp-Guweqe-Ikj ditions http_s://psychcentra [employer]com/depression/the -cognitive-symptoms- of-depression#treatm ents http__s://www.nimh.n ih.gov/health/topics /qksjjl-wldkft-axuuk ations http__s://www.maxwell.o rg/Joqkz-Qilkkq-Impl ess/Treatments/Menta h-Btxczx-Nlxyseykowr 3. Tobacco user General health and safety guidelines: Do not smoke. Nicotine and other chemicals in cigarettes and cigars can cause lung damage. Ask your healthcare provider for information if you currently smoke and need help to quit. E-cigarettes or smokeless tobacco still contain nicotine. Talk to your healthcare provider before you use these products. 4. Primary insomnia see sleep provider 5. Long-term drug therapy -control substance agreement Clonazepam UDS 02/18/2025 Encounter for screening for depression (ICD-10 - Z13.31) 1.major depression - continue depression- medical issues - see specialist colonoscopy 11/24/23 hx auditory hallucinations- refer to neurologist and r/o migrianes and insomnia cause- psychosis improved and sleep improved with migraine improved on Botox educated and discuss Lamotrigine 200 mg po hs - [facility] patient does not want to X#z* r W at this timd S econd generation antipsychotics (SGAs) have metabolic syndrome issues with weight gain, increase in prolactin, increased waist circumference, increased lipids, and increased glucose. Thus routine monitoring of weight, metabolic labs, etc. is indicated. A general rank ordering of antipsychotics that have the greatest to the least risk of metabolic effects is olanzapine, quetiapine, risperidone, ziprasidone, and aripiprazole. However, weight gain can occur with all of these drugs and considerable variability exists among patients receiving the same drug regarding the risk of metabolic effects. Anti-psychotic agents not only increase the risk of metabolic disorder, they also increase the risk of CVA, akathisia, and movement disorders including EPS or tardive dyskinesia (more common with first generation antipsychotics) and more. GENE SIGHT RESULTS REVIEWED and copy given to patient educated on all medications, benefits, side effects and risk, and educated on depression, anxiety, and mood d/o and educated on compliance of medications, metabolic and movement d/o education appointment is, continue therapy discussion with patient about course of treatment and patient instructions. education on serotonin syndrome different dxn Bipolar II Lamotrigine lamotrigine has a serious rashes requiring hospitalization and discontinue treatment includingSteven Gordy syndrome rare case of toxic epidermal necrolysis and cache related deaths.Incidence with adjunct of epilepsy treatment 0.8% in 2 to 16 years old and 0.3% in adults, bipolarand other mood disorders incidence 0.8% this initial monotherapy and 0.13% as adjunctivetreatment. Other risk factor may include concomitant use of valproate acid derivative or exceeding initiallamotrigine does or does as clinician recommendation; most life-threatening rash of occurring first 2to 8 week of treatment with isolated cases after prolonged treatment; though benign may occur,discontinue treatment at first sign of rash unless clearly not a drug related; TC treatment may notprevent trash from becoming life-threatening or permanently disabling or disfiguring.Comment reaction include, nausea/vomiting, dizziness/vertigo, visual disturbances, somnolence,ataxia, pruritus/rash, pharyngitis, headache, rhinitis, diarrhea, fever, asthenia, insomnia, tremor,abdominal pain, cough, accidental injury, constipation, dysmenorrhea, incoordination, anxiety,seizures, irritability, anorexia, xerostomia, and photosensitivity.Ser ious reactions include: Rash, severe; Smith Gordy syndrome; toxic epidermal necrosis;injury edema, hypersensitivity reactions. Including fatal, multiple organ failure to safe fatal, rash witheosinophilia systemic symptoms, DIC, neutropenia, leukopenia, thrombocytopenia, pancytopenia,aplasti c anemia, hemolytic anemia, i pancreatitis, hepatic failure, rhabdomyolysis, worsening ofsuicidal ideation, worsening of depression, cleft lip/palate [first trimester use]DO not Change Cosmetic, perfumes or soap for next 4 weeks.The patient was advice to take lamotrigine as prescribed the patient was instructed not to deviatefrom the prescription dosages. Stop lamotrigine is the first sign of rash. Patient was insisted to informoffice if any of the serious side effect develops. discuss therpay options- patient does not want at this time lamotrigine 200 mg tablet - Take 1 tablet(s) every day by oral route at bedtime see pain management and GI 2. Generalized anxiety disorder -[facility] [place] no early refills on control substance educated on no control substance prescribed if cannabis or illegal substance or ETOH abuse UDS and random - SSRI/SNRI side effects discussed including but not limited to, gastric upset, nausea, vomiting, diarrhea and/or constipation, weight changes, sexual side effects including loss of libido, increased suicidal thoughts/behaviors in children and young adults, and serotonin syndrome. colonoscopy 2013refused flu vaccinesrefused COVID vaccines Discussed and educated pt regarding benzodiazepines are generally not intended for prolonged use and that use can cause tolerance, dependence, depression, and associated memory issues including dementias (this list is not exhaustive). Benzodiazepine use is generally not recommended concurrently with pain medications and/or other controlled substances due to increased risks of profound sedation, respiratory depression, coma, and even . They are not to be used with any alcohol, as this combination can also be lethal. Patient was provided caution http_s://www.[employer]/cannabis-us p-jckcirxs-hsneaipvp -adhd/ http_s://www.maxwell.or g/Hbmya-Ktwpxc-Ojuya ss/Grdbpc-Upjhvv-Kkn ditions http_s://psychcentra l.com/depression/the -cognitive-symptoms- of-depression#treatm ents http__s://www.[facility].n ih.gov/health/topics /kdbwyg-zagaaf-xllpn ations http__s://www.maxwell.o rg/Rwgmu-Iivbhm-Qarw ess/Treatments/Menta f-Pvthpc-Yihyguwxpmr 3. Tobacco user General health and safety guidelines: Do not smoke. Nicotine and other chemicals in cigarettes and cigars can cause lung damage. Ask your healthcare provider for information if you currently smoke and need help to quit. E-cigarettes or smokeless tobacco still contain nicotine. Talk to your healthcare provider before you use these products. Smoking Education Do not smoke. Nicotine and other chemicals in cigarettes and cigars can cause lung damage. Ask your healthcare provider for information if you currently smoke and need help to quit. E-cigarettes or smokeless tobacco still contain nicotine. Talk to your healthcare provider before you use these products. education on decrease to stopping nicotine products and stop smoking hotline given 711-Quit - Yes [place] Tobacco Quitline Call a Smoking Quitline The [employer] Smoking Quitline, (4-812-71D-QUIT) Smokefree.gov, which connects you with your State's Quitline, (4-697-TXUYEYE) [facility] Smoking Quitline, (5-473-ZYYTCCZ) 4. Primary insomnia see sleep provider 5. Long-term drug therapy -control substance agreement Clonazepam UDS 02/18/2025 MDD (major depressive disorder), recurrent episode, moderate (ICD-10 - F33.1) 1.major depression - continue depression- medical issues - see specialist colonoscopy 11/24/23 hx auditory hallucinations- refer to neurologist and r/o migrianes and insomnia cause- psychosis improved and sleep improved with migraine improved on Botox educated and discuss Lamotrigine 200 mg po hs - [facility] patient does not want to add or change rx at this time Second generation antipsychotics (SGAs) have metabolic syndrome issues with weight gain, increase in prolactin, increased waist circumference, increased lipids, and increased glucose. Thus routine monitoring of weight, metabolic labs, etc. is indicated. A general rank ordering of antipsychotics that have the greatest to the least risk of metabolic effects is olanzapine, quetiapine, risperidone, ziprasidone, and aripiprazole. However, weight gain can occur with all of these drugs and considerable variability exists among patients receiving the same drug regarding the risk of metabolic effects. Anti-psychotic agents not only increase the risk of metabolic disorder, they also increase the risk of CVA, akathisia, and movement disorders including EPS or tardive dyskinesia (more common with first generation antipsychotics) and more. GENE SIGHT RESULTS REVIEWED and copy given to patient educated on all medications, benefits, side effects and risk, and educated on depression, anxiety, and mood d/o and educated on compliance of medications, metabolic and movement d/o education appointment is, continue therapy discussion with patient about course of treatment and patient instructions. education on serotonin syndrome different dxn Bipolar II Lamotrigine lamotrigine has a serious rashes requiring hospitalization and discontinue treatment includingSteven Gordy syndrome rare case of toxic epidermal necrolysis and cache related deaths.Incidence with adjunct of epilepsy treatment 0.8% in 2 to 16 years old and 0.3% in adults, bipolarand other mood disorders incidence 0.8% this initial monotherapy and 0.13% as adjunctivetreatment. Other risk factor may include concomitant use of valproate acid derivative or exceeding initiallamotrigine does or does as clinician recommendation; most life-threatening rash of occurring first 2to 8 week of treatment with isolated cases after prolonged treatment; though benign may occur,discontinue treatment at first sign of rash unless clearly not a drug related; TC treatment may notprevent trash from becoming life-threatening or permanently disabling or disfiguring.Comment reaction include, nausea/vomiting, dizziness/vertigo, visual disturbances, somnolence,ataxia, pruritus/rash, pharyngitis, headache, rhinitis, diarrhea, fever, asthenia, insomnia, tremor,abdominal pain, cough, accidental injury, constipation, dysmenorrhea, incoordination, anxiety,seizures, irritability, anorexia, xerostomia, and photosensitivity.Ser ious reactions include: Rash, severe; Smith Gordy syndrome; toxic epidermal necrosis;injury edema, hypersensitivity reactions. Including fatal, multiple organ failure to safe fatal, rash witheosinophilia systemic symptoms, DIC, neutropenia, leukopenia, thrombocytopenia, pancytopenia,aplasti c anemia, hemolytic anemia, i pancreatitis, hepatic failure, rhabdomyolysis, worsening ofsuicidal ideation, worsening of depression, cleft lip/palate [first trimester use]DO not Change Cosmetic, perfumes or soap for next 4 weeks.The patient was advice to take lamotrigine as prescribed the patient was instructed not to deviatefrom the prescription dosages. Stop lamotrigine is the first sign of rash. Patient was insisted to informoffice if any of the serious side effect develops. discuss therpay options- patient does not want at this time lamotrigine 200 mg tablet - Take 1 tablet(s) every day by oral route at bedtime see pain management and GI 2. Generalized anxiety disorder -Clonazepam 1.5 mg PO HS [facility] local pharmacy in [place] no early refills on control substance educated on no control substance prescribed if cannabis or illegal substance or ETOH abuse UDS and random - SSRI/SNRI side effects discussed including but not limited to, gastric upset, nausea, vomiting, diarrhea and/or constipation, weight changes, sexual side effects including loss of libido, increased suicidal thoughts/behaviors in children and young adults, and serotonin syndrome. colonoscopy 2013refused flu vaccinesrefused COVID vaccines Discussed and educated pt regarding benzodiazepines are generally not intended for prolonged use and that use can cause tolerance, dependence, depression, and associated memory issues including dementias (this list is not exhaustive). Benzodiazepine use is generally not recommended concurrently with pain medications and/or other controlled substances due to increased risks of profound sedation, respiratory depression, coma, and even . They are not to be used with any alcohol, as this combination can also be lethal. Patient was provided caution http_s://www.[employer]/cannabis-us g-qrwphesf-qoteovtjs -adhd/ http_s://www.maxwell.or g/Rprhy-Bctvvx-Tbjft ss/Soaxgv-Lamgue-Xai ditions http_s://psychcentra [employer].com/depression/the -cognitive-symptoms- of-depression#treatm ents http__s://www.nimh.n ih.gov/health/topics /ltxsde-nbcqer-cwvlr ations http__s://www.maxwell.o rg/Ylhhu-Uwgsiw-Oevo ess/Treatments/Menta z-Fuozmz-Mylbzlpyhjy 3. Tobacco user General health and safety guidelines: Do not smoke. Nicotine and other chemicals in cigarettes and cigars can cause lung damage. Ask your healthcare provider for information if you currently smoke and need help to quit. E-cigarettes or smokeless tobacco still contain nicotine. Talk to your healthcare provider before you use these products. Smoking Education Do not smoke. Nicotine and other chemicals in cigarettes and cigars can cause lung damage. Ask your healthcare provider for information if you currently smoke and need help to quit. E-cigarettes or smokeless tobacco still contain nicotine. Talk to your healthcare provider before you use these products. education on decrease to stopping nicotine products and stop smoking hotline given 2-Quit - Yes [place] Tobacco Quitline Call a Smoking Quitline The [employer] Smoking Quitline, (9-975-37U-QUIT) Smokefree.gov, which connects you with your State's Quitline, (3-633-XYPMEFA) [facility] Smoking Quitline, (4-051-WMEYBDQ) 4. Primary insomnia see sleep provider 5. Long-term drug therapy -control substance agreement Clonazepam UDS 05/20/2025 Encounter for screening for depression (ICD-10 - Z13.31) 1.major depression - continue depression- discuss and educated on medications options- reviewed [facility] Add Vyalar 1.5 mg every other day for depression and auditory hallucinations- samples given patient also seeing neurosurgeon for migraines and headaches medical issues - see specialists colonoscopy 11/24/23 hx auditory hallucinations- refer to neurologist and r/o migrianes and insomnia cause- psychosis auditory and sleep issues and with migraine hx on Botox educated and discuss Lamotrigine 200 mg po hs - [facility] Second generation antipsychotics (SGAs) have metabolic syndrome issues with weight gain, increase in prolactin, increased waist circumference, increased lipids, and increased glucose. Thus routine monitoring of weight, metabolic labs, etc. is indicated. A general rank ordering of antipsychotics that have the greatest to the least risk of metabolic effects is olanzapine, quetiapine, risperidone, ziprasidone, and aripiprazole. However, weight gain can occur with all of these drugs and considerable variability exists among patients receiving the same drug regarding the risk of metabolic effects. Anti-psychotic agents not only increase the risk of metabolic disorder, they also increase the risk of CVA, akathisia, and movement disorders including EPS or tardive dyskinesia (more common with first generation antipsychotics) and more. GENE SIGHT RESULTS REVIEWED educated on all medications, benefits, side effects and risk, and educated on depression, anxiety, and mood d/o and educated on compliance of medications, metabolic and movement d/o education appointment is, continue therapy discussion with patient about course of treatment and patient instructions. education on serotonin syndrome different dxn Bipolar II Lamotrigine lamotrigine has a serious rashes requiring hospitalization and discontinue treatment includingSteven Gordy syndrome rare case of toxic epidermal necrolysis and cache related deaths.Incidence with adjunct of epilepsy treatment 0.8% in 2 to 16 years old and 0.3% in adults, bipolarand other mood disorders incidence 0.8% this initial monotherapy and 0.13% as adjunctivetreatment. Other risk factor may include concomitant use of valproate acid derivative or exceeding initiallamotrigine does or does as clinician recommendation; most life-threatening rash of occurring first 2to 8 week of treatment with isolated cases after prolonged treatment; though benign may occur,discontinue treatment at first sign of rash unless clearly not a drug related; TC treatment may notprevent trash from becoming life-threatening or permanently disabling or disfiguring.Comment reaction include, nausea/vomiting, dizziness/vertigo, visual disturbances, somnolence,ataxia, pruritus/rash, pharyngitis, headache, rhinitis, diarrhea, fever, asthenia, insomnia, tremor,abdominal pain, cough, accidental injury, constipation, dysmenorrhea, incoordination, anxiety,seizures, irritability, anorexia, xerostomia, and photosensitivity.Ser ious reactions include: Rash, severe; Smith Gordy syndrome; toxic epidermal necrosis;injury edema, hypersensitivity reactions. Including fatal, multiple organ failure to safe fatal, rash witheosinophilia systemic symptoms, DIC, neutropenia, leukopenia, thrombocytopenia, pancytopenia,aplasti c anemia, hemolytic anemia, i pancreatitis, hepatic failure, rhabdomyolysis, worsening ofsuicidal ideation, worsening of depression, cleft lip/palate [first trimester use]DO not Change Cosmetic, perfumes or soap for next 4 weeks.The patient was advice to take lamotrigine as prescribed the patient was instructed not to deviatefrom the prescription dosages. Stop lamotrigine is the first sign of rash. Patient was insisted to informoffice if any of the serious side effect develops. discuss therpay options- patient does not want at this time lamotrigine 200 mg tablet - Take 1 tablet(s) every day by oral route at bedtime see pain management and GI 2. Generalized anxiety disorder - change Clonazepam 0.5 mg three times a day [facility] local pharmacy in [place] no early refills on control substance educated on no control substance prescribed if cannabis or illegal substance or ETOH abuse UDS and random - SSRI/SNRI side effects discussed including but not limited to, gastric upset, nausea, vomiting, diarrhea and/or constipation, weight changes, sexual side effects including loss of libido, increased suicidal thoughts/behaviors in children and young adults, and serotonin syndrome. colonoscopy 2013refused flu vaccinesrefused COVID vaccines Discussed and educated pt regarding benzodiazepines are generally not intended for prolonged use and that use can cause tolerance, dependence, depression, and associated memory issues including dementias (this list is not exhaustive). Benzodiazepine use is generally not recommended concurrently with pain medications and/or other controlled substances due to increased risks of profound sedation, respiratory depression, coma, and even . They are not to be used with any alcohol, as this combination can also be lethal. Patient was provided caution http_s://www.[employer]/cannabis-us n-euvquwvv-ekrwpouni -adhd/ http_s://www.maxwell.or g/Btcbt-Rzggku-Fzqwe ss/Cudmyn-Qgcnnh-Uew ditions http_s://psychcentra [employer].com/depression/the -cognitive-symptoms- of-depression#treatm ents http__s://www.nimh.n ih.gov/health/topics /ppqjpm-andefj-wjtkk ations http__s://www.maxwell.o rg/Bpwxo-Hzodez-Aqkh ess/Treatments/Menta z-Sktwok-Eyjiuoixltf 3. Tobacco user General health and safety guidelines: Do not smoke. Nicotine and other chemicals in cigarettes and cigars can cause lung damage. Ask your healthcare provider for information if you currently smoke and need help to quit. E-cigarettes or smokeless tobacco still contain nicotine. Talk to your healthcare provider before you use these products. Smoking Education Do not smoke. Nicotine and other chemicals in cigarettes and cigars can cause lung damage. Ask your healthcare provider for information if you currently smoke and need help to quit. E-cigarettes or smokeless tobacco still contain nicotine. Talk to your healthcare provider before you use these products. education on decrease to stopping nicotine products and stop smoking hotline given Quit - Yes [place] Tobacco Quitline Call a Smoking Quitline The [employer] Smoking Quitline, (2-913-23R-QUIT) Smokefree.gov, which connects you with your State's Quitline, (6-294-IUGQGAU) Veterans Smoking Quitline, (6-792-QZLMCBD) 4. Primary insomnia see sleep provider 5. Long-term drug therapy -control substance agreement Clonazepam UDS 06/03/2025 Encounter for screening for depression (ICD-10 - Z13.31) 1.major depression - continue depression- discuss and educated on medications options- reviewed [facility] S[facility] Increase Vyalar 1.5 mg day for depression and auditory and olfactory hallucinations- samples given patient also seeing neurosurgeon for migraines and headaches MRI brain- hx 2 years ago and neurosurgeon scheduled 07/01 will discuss medical issues - see specialists colonoscopy 11/24/23 hx auditory hallucinations- refer to neurologist and r/o migrianes and insomnia cause- psychosis auditory and olfactory and sleep issues and with migraine hx on Botox educated and discuss Lamotrigine 200 mg po hs - [facility] refer to therapy Second generation antipsychotics (SGAs) have metabolic syndrome issues with weight gain, increase in prolactin, increased waist circumference, increased lipids, and increased glucose. Thus routine monitoring of weight, metabolic labs, etc. is indicated. A general rank ordering of antipsychotics that have the greatest to the least risk of metabolic effects is olanzapine, quetiapine, risperidone, ziprasidone, and aripiprazole. However, weight gain can occur with all of these drugs and considerable variability exists among patients receiving the same drug regarding the risk of metabolic effects. Anti-psychotic agents not only increase the risk of metabolic disorder, they also increase the risk of CVA, akathisia, and movement disorders including EPS or tardive dyskinesia (more common with first generation antipsychotics) and more. GENE SIGHT RESULTS REVIEWED educated on all medications, benefits, side effects and risk, and educated on depression, anxiety, and mood d/o and educated on compliance of medications, metabolic and movement d/o education appointment is, continue therapy discussion with patient about course of treatment and patient instructions. education on serotonin syndrome different dxn Bipolar II Lamotrigine lamotrigine has a serious rashes requiring hospitalization and discontinue treatment includingSteven Gordy syndrome rare case of toxic epidermal necrolysis and cache related deaths.Incidence with adjunct of epilepsy treatment 0.8% in 2 to 16 years old and 0.3% in adults, bipolarand other mood disorders incidence 0.8% this initial monotherapy and 0.13% as adjunctivetreatment. Other risk factor may include concomitant use of valproate acid derivative or exceeding initiallamotrigine does or does as clinician recommendation; most life-threatening rash of occurring first 2to 8 week of treatment with isolated cases after prolonged treatment; though benign may occur,discontinue treatment at first sign of rash unless clearly not a drug related; TC treatment may notprevent trash from becoming life-threatening or permanently disabling or disfiguring.Comment reaction include, nausea/vomiting, dizziness/vertigo, visual disturbances, somnolence,ataxia, pruritus/rash, pharyngitis, headache, rhinitis, diarrhea, fever, asthenia, insomnia, tremor,abdominal pain, cough, accidental injury, constipation, dysmenorrhea, incoordination, anxiety,seizures, irritability, anorexia, xerostomia, and photosensitivity.Ser ious reactions include: Rash, severe; Smith Gordy syndrome; toxic epidermal necrosis;injury edema, hypersensitivity reactions. Including fatal, multiple organ failure to safe fatal, rash witheosinophilia systemic symptoms, DIC, neutropenia, leukopenia, thrombocytopenia, pancytopenia,aplasti c anemia, hemolytic anemia, i pancreatitis, hepatic failure, rhabdomyolysis, worsening ofsuicidal ideation, worsening of depression, cleft lip/palate [first trimester use]DO not Change Cosmetic, perfumes or soap for next 4 weeks.The patient was advice to take lamotrigine as prescribed the patient was instructed not to deviatefrom the prescription dosages. Stop lamotrigine is the first sign of rash. Patient was insisted to informoffice if any of the serious side effect develops. discuss therpay options- patient does not want at this time lamotrigine 200 mg tablet - Take 1 tablet(s) every day by oral route at bedtime see pain management and GI 2. Generalized anxiety disorder - increase Clonazepam 0.5 mg four times a day [facility] local pharmacy in [place] no early refills on control substance educated on no control substance prescribed if cannabis or illegal substance or ETOH abuse UDS and random - SSRI/SNRI side effects discussed including but not limited to, gastric upset, nausea, vomiting, diarrhea and/or constipation, weight changes, sexual side effects including loss of libido, increased suicidal thoughts/behaviors in children and young adults, and serotonin syndrome. colonoscopy 2013refused flu vaccinesrefused COVID vaccines Discussed and educated pt regarding benzodiazepines are generally not intended for prolonged use and that use can cause tolerance, dependence, depression, and associated memory issues including dementias (this list is not exhaustive). Benzodiazepine use is generally not recommended concurrently with pain medications and/or other controlled substances due to increased risks of profound sedation, respiratory depression, coma, and even . They are not to be used with any alcohol, as this combination can also be lethal. Patient was provided caution http_s://www.[employer]/cannabis-us d-buamvoxc-ycpjwajmj -adhd/ http_s://www.maxwell.or g/Cfsvt-Dgmkps-Wkfgb ss/Jfhgkm-Hapmgb-Xdg ditions http_s://psychcentra [employer]/depression/the -cognitive-symptoms- of-depression#treatm ents http__s://www.nimh.n ih.gov/health/topics /qqxxaj-kvfpch-huhtd ations http__s://www.maxwell.o rg/Aazzv-Denjhe-Nltg ess/Treatments/Menta p-Gebcbb-Ajnjwhdtspt 3. Tobacco user General health and safety guidelines: Do not smoke. Nicotine and other chemicals in cigarettes and cigars can cause lung damage. Ask your healthcare provider for information if you currently smoke and need help to quit. E-cigarettes or smokeless tobacco still contain nicotine. Talk to your healthcare provider before you use these products. Smoking Education Do not smoke. Nicotine and other chemicals in cigarettes and cigars can cause lung damage. Ask your healthcare provider for information if you currently smoke and need help to quit. E-cigarettes or smokeless tobacco still contain nicotine. Talk to your healthcare provider before you use these products. education on decrease to stopping nicotine products and stop smoking hotline given 420-Quit - Yes [place] Tobacco Quitline Call a Smoking Quitline The [employer] Smoking Quitline, (0-972-13R-QUIT) Smokefree.gov, which connects you with your State's Quitline, (3-556-DPLBADO) Veterans Smoking Quitline, (8-673-VTAMVSA) 4. Primary insomnia see sleep provider 5. Long-term drug therapy -control substance agreement Clonazepam UDS 06/24/2025 Generalized anxiety disorder (ICD-10 - F41.1) Generalized Anxiety Disorder: Care Instructions material was published, Learning About Anxiety Disorders material was published, Learning About Transcranial Magnetic Stimulation (TMS) material was published 1.major depression - continue depression- discuss and educated on medications options- reviewed [facility] patient stopped Vyalar 1.5 mg day pateint having chornic insomania and may be trigger auditory and olfactory hallucinations- has a referral to sleep study per PCP patient also seeing neurosurgeon for migraines and headaches MRI brain- hx 2 years ago and neurosurgeon scheduled 07/01 and nerve conduction test scheduled 07/01 medical issues - see specialists colonoscopy 11/24/23 hx auditory hallucinations- refer to neurologist and r/o migrianes and insomnia cause- psychosis auditory and olfactory and sleep issues and with migraine hx on Botox educated and discuss presently taking Lamotrigine 200 mg po hs - pateint would like to taper off rx slowly- Decrease Lamotrigine 150 mg daily - for 30 days discuss and educated monitoring depression and mood and tapering process pateint would like to try different medication options after off rx refer to therapy Second generation antipsychotics (SGAs) have metabolic syndrome issues with weight gain, increase in prolactin, increased waist circumference, increased lipids, and increased glucose. Thus routine monitoring of weight, metabolic labs, etc. is indicated. A general rank ordering of antipsychotics that have the greatest to the least risk of metabolic effects is olanzapine, quetiapine, risperidone, ziprasidone, and aripiprazole. However, weight gain can occur with all of these drugs and considerable variability exists among patients receiving the same drug regarding the risk of metabolic effects. Anti-psychotic agents not only increase the risk of metabolic disorder, they also increase the risk of CVA, akathisia, and movement disorders including EPS or tardive dyskinesia (more common with first generation antipsychotics) and more. GENE SIGHT RESULTS REVIEWED educated on all medications, benefits, side effects and risk, and educated on depression, anxiety, and mood d/o and educated on compliance of medications, metabolic and movement d/o education appointment is, continue therapy discussion with patient about course of treatment and patient instructions. education on serotonin syndrome different dxn Bipolar II Lamotrigine lamotrigine has a serious rashes requiring hospitalization and discontinue treatment includingSteven Gordy syndrome rare case of toxic epidermal necrolysis and cache related deaths.Incidence with adjunct of epilepsy treatment 0.8% in 2 to 16 years old and 0.3% in adults, bipolarand other mood disorders incidence 0.8% this initial monotherapy and 0.13% as adjunctivetreatment. Other risk factor may include concomitant use of valproate acid derivative or exceeding initiallamotrigine does or does as clinician recommendation; most life-threatening rash of occurring first 2to 8 week of treatment with isolated cases after prolonged treatment; though benign may occur,discontinue treatment at first sign of rash unless clearly not a drug related; TC treatment may notprevent trash from becoming life-threatening or permanently disabling or disfiguring.Comment reaction include, nausea/vomiting, dizziness/vertigo, visual disturbances, somnolence,ataxia, pruritus/rash, pharyngitis, headache, rhinitis, diarrhea, fever, asthenia, insomnia, tremor,abdominal pain, cough, accidental injury, constipation, dysmenorrhea, incoordination, anxiety,seizures, irritability, anorexia, xerostomia, and photosensitivity.Ser ious reactions include: Rash, severe; Smith Gordy syndrome; toxic epidermal necrosis;injury edema, hypersensitivity reactions. Including fatal, multiple organ failure to safe fatal, rash witheosinophilia systemic symptoms, DIC, neutropenia, leukopenia, thrombocytopenia, pancytopenia,aplasti c anemia, hemolytic anemia, i pancreatitis, hepatic failure, rhabdomyolysis, worsening ofsuicidal ideation, worsening of depression, cleft lip/palate [first trimester use]DO not Change Cosmetic, perfumes or soap for next 4 weeks.The patient was advice to take lamotrigine as prescribed the patient was instructed not to deviatefrom the prescription dosages. Stop lamotrigine is the first sign of rash. Patient was insisted to informoffice if any of the serious side effect develops. discuss therpay options- patient does not want at this time see pain management and GI 2. Generalized anxiety disorder - decrease Clonazepam 0.5 mg three times a day- patient would like to slowly decrease to stop rx over time - no refill needed today educated and discuss GDR and monitor anxiety and panic [facility] local pharmacy in [place] no early refills on control substance educated on no control substance prescribed if cannabis or illegal substance or ETOH abuse UDS and random - SSRI/SNRI side effects discussed including but not limited to, gastric upset, nausea, vomiting, diarrhea and/or constipation, weight changes, sexual side effects including loss of libido, increased suicidal thoughts/behaviors in children and young adults, and serotonin syndrome. colonoscopy 2013refused flu vaccinesrefused COVID vaccines Discussed and educated pt regarding benzodiazepines are generally not intended for prolonged use and that use can cause tolerance, dependence, depression, and associated memory issues including dementias (this list is not exhaustive). Benzodiazepine use is generally not recommended concurrently with pain medications and/or other controlled substances due to increased risks of profound sedation, respiratory depression, coma, and even . They are not to be used with any alcohol, as this combination can also be lethal. Patient was provided caution http_s://www.[employer]/cannabis-us r-xvvdqxkz-izvbhewkw -adhd/ http_s://www.maxwell.or g/Qiahs-Drincd-Vonny ss/Vpuaxy-Yaraop-Txr ditions http_s://psychcentra [employer]/depression/the -cognitive-symptoms- of-depression#treatm ents http__s://www.nimh.n ih.gov/health/topics /nssisb-jzgfnu-fswql ations http__s://www.maxwell.o rg/Pwkva-Dgcctt-Gzcs ess/Treatments/Menta w-Knxeqq-Pknvgmljdhw 3. Tobacco user General health and safety guidelines: Do not smoke. Nicotine and other chemicals in cigarettes and cigars can cause lung damage. Ask your healthcare provider for information if you currently smoke and need help to quit. E-cigarettes or smokeless tobacco still contain nicotine. Talk to your healthcare provider before you use these products. Smoking Education Do not smoke. Nicotine and other chemicals in cigarettes and cigars can cause lung damage. Ask your healthcare provider for information if you currently smoke and need help to quit. E-cigarettes or smokeless tobacco still contain nicotine. Talk to your healthcare provider before you use these products. education on decrease to stopping nicotine products and stop smoking hotline given Quit - Yes [place] Tobacco Quitline Call a Smoking Quitline The [employer] Smoking Quitline, (3-046-80N-QUIT) Smokefree.gov, which connects you with your State's Quitline, (4-873-TYODEOC) Veterans Smoking Quitline, (2-641-CBLLYXV) 4. Primary insomnia see sleep provider 5. Long-term drug therapy -control substance agreement Clonazepam UDS 06/24/2025 MDD (major depressive disorder), recurrent episode, moderate (ICD-10 - F33.1) 1.major depression - continue depression- discuss and educated on medications options- reviewed [facility] patient stopped Vyalar 1.5 mg day pateint having chornic insomania and may be trigger auditory and olfactory hallucinations- has a referral to sleep study per PCP patient also seeing neurosurgeon for migraines and headaches MRI brain- hx 2 years ago and neurosurgeon scheduled 07/01 and nerve conduction test scheduled 07/01 medical issues - see specialists colonoscopy 11/24/23 hx auditory hallucinations- refer to neurologist and r/o migrianes and insomnia cause- psychosis auditory and olfactory and sleep issues and with migraine hx on Botox educated and discuss presently taking Lamotrigine 200 mg po hs - pateint would like to taper off rx slowly- Decrease Lamotrigine 150 mg daily - for 30 days discuss and educated monitoring depression and mood and tapering process pateint would like to try different medication options after off rx refer to therapy Second generation antipsychotics (SGAs) have metabolic syndrome issues with weight gain, increase in prolactin, increased waist circumference, increased lipids, and increased glucose. Thus routine monitoring of weight, metabolic labs, etc. is indicated. A general rank ordering of antipsychotics that have the greatest to the least risk of metabolic effects is olanzapine, quetiapine, risperidone, ziprasidone, and aripiprazole. However, weight gain can occur with all of these drugs and considerable variability exists among patients receiving the same drug regarding the risk of metabolic effects. Anti-psychotic agents not only increase the risk of metabolic disorder, they also increase the risk of CVA, akathisia, and movement disorders including EPS or tardive dyskinesia (more common with first generation antipsychotics) and more. GENE SIGHT RESULTS REVIEWED educated on all medications, benefits, side effects and risk, and educated on depression, anxiety, and mood d/o and educated on compliance of medications, metabolic and movement d/o education appointment is, continue therapy discussion with patient about course of treatment and patient instructions. education on serotonin syndrome different dxn Bipolar II Lamotrigine lamotrigine has a serious rashes requiring hospitalization and discontinue treatment includingSteven Gordy syndrome rare case of toxic epidermal necrolysis and cache related deaths.Incidence with adjunct of epilepsy treatment 0.8% in 2 to 16 years old and 0.3% in adults, bipolarand other mood disorders incidence 0.8% this initial monotherapy and 0.13% as adjunctivetreatment. Other risk factor may include concomitant use of valproate acid derivative or exceeding initiallamotrigine does or does as clinician recommendation; most life-threatening rash of occurring first 2to 8 week of treatment with isolated cases after prolonged treatment; though benign may occur,discontinue treatment at first sign of rash unless clearly not a drug related; TC treatment may notprevent trash from becoming life-threatening or permanently disabling or disfiguring.Comment reaction include, nausea/vomiting, dizziness/vertigo, visual disturbances, somnolence,ataxia, pruritus/rash, pharyngitis, headache, rhinitis, diarrhea, fever, asthenia, insomnia, tremor,abdominal pain, cough, accidental injury, constipation, dysmenorrhea, incoordination, anxiety,seizures, irritability, anorexia, xerostomia, and photosensitivity.Ser ious reactions include: Rash, severe; Smith Gordy syndrome; toxic epidermal necrosis;injury edema, hypersensitivity reactions. Including fatal, multiple organ failure to safe fatal, rash witheosinophilia systemic symptoms, DIC, neutropenia, leukopenia, thrombocytopenia, pancytopenia,aplasti c anemia, hemolytic anemia, i pancreatitis, hepatic failure, rhabdomyolysis, worsening ofsuicidal ideation, worsening of depression, cleft lip/palate [first trimester use]DO not Change Cosmetic, perfumes or soap for next 4 weeks.The patient was advice to take lamotrigine as prescribed the patient was instructed not to deviatefrom the prescription dosages. Stop lamotrigine is the first sign of rash. Patient was insisted to informoffice if any of the serious side effect develops. discuss therpay options- patient does not want at this time see pain management and GI 2. Generalized anxiety disorder - decrease Clonazepam 0.5 mg three times a day- patient would like to slowly decrease to stop rx over time - no refill needed today educated and discuss GDR and monitor anxiety and panic [facility] local pharmacy in [place] no early refills on control substance educated on no control substance prescribed if cannabis or illegal substance or ETOH abuse UDS and random - SSRI/SNRI side effects discussed including but not limited to, gastric upset, nausea, vomiting, diarrhea and/or constipation, weight changes, sexual side effects including loss of libido, increased suicidal thoughts/behaviors in children and young adults, and serotonin syndrome. colonoscopy 2013refused flu vaccinesrefused COVID vaccines Discussed and educated pt regarding benzodiazepines are generally not intended for prolonged use and that use can cause tolerance, dependence, depression, and associated memory issues including dementias (this list is not exhaustive). Benzodiazepine use is generally not recommended concurrently with pain medications and/or other controlled substances due to increased risks of profound sedation, respiratory depression, coma, and even . They are not to be used with any alcohol, as this combination can also be lethal. Patient was provided caution http_s://www.[employer]/cannabis-us s-tqgcowzo-bhdszfwyz -adhd/ http_s://www.maxwell.or g/Jwazq-Lqioaz-Tlnwq ss/Jsaiub-Czipvl-Mvy ditions http_s://psychcentra l.com/depression/the -cognitive-symptoms- of-depression#treatm ents http__s://www.nimh.n ih.gov/health/topics /alnvwd-vegilw-vbkyl ations http__s://www.maxwell.o rg/Rrnpt-Uoeyho-Gtyt ess/Treatments/Menta b-Xybyri-Hesxbygzhcn 3. Tobacco user General health and safety guidelines: Do not smoke. Nicotine and other chemicals in cigarettes and cigars can cause lung damage. Ask your healthcare provider for information if you currently smoke and need help to quit. E-cigarettes or smokeless tobacco still contain nicotine. Talk to your healthcare provider before you use these products. Smoking Education Do not smoke. Nicotine and other chemicals in cigarettes and cigars can cause lung damage. Ask your healthcare provider for information if you currently smoke and need help to quit. E-cigarettes or smokeless tobacco still contain nicotine. Talk to your healthcare provider before you use these products. education on decrease to stopping nicotine products and stop smoking hotline given Quit - Yes [place] Tobacco Quitline Call a Smoking Quitline The [employer]'s Smoking Quitline, (0-495-02A-QUIT) Smokefree.gov, which connects you with your State's Quitline, (1-548-BUQFRZT) Veterans Smoking Quitline, (3-919-VWGRFMA) 4. Primary insomnia see sleep provider 5. Long-term drug therapy -control substance agreement Clonazepam UDS 07/22/2025 Generalized anxiety disorder (ICD-10 - F41.1) Generalized Anxiety Disorder: Care Instructions material was published, Learning About Anxiety Disorders material was published, Learning About Transcranial Magnetic Stimulation (TMS) material was published 1.major depression - continue depression- discuss and educated on medications options- reviewed Gene Sight pateint having chornic insomania and may be trigger auditory and olfactory hallucinations- has a referral to sleep study per PCP - scheduled - [facility] patient also seeing neurosurgeon for migraines and headaches MRI brain- hx 2 years ago and neurosurgeon scheduled 07/01 and nerve conduction test scheduled 07/01 medical issues - see specialists colonoscopy 11/24/23 hx auditory hallucinations- refer to neurologist and r/o migrianes and insomnia cause- psychosis auditory and olfactory and sleep issues and with migraine hx on Botox educated and discuss presently taking Lamotrigine 150 mg po hs - pateint would like to taper off rx slowly- Decrease Lamotrigine 100 mg daily - for 30 days- patient has rx at home to use no refill needed discuss and educated monitoring depression and mood and tapering process pateint would like to try different medication options after off rx refer to therapy Second generation antipsychotics (SGAs) have metabolic syndrome issues with weight gain, increase in prolactin, increased waist circumference, increased lipids, and increased glucose. Thus routine monitoring of weight, metabolic labs, etc. is indicated. A general rank ordering of antipsychotics that have the greatest to the least risk of metabolic effects is olanzapine, quetiapine, risperidone, ziprasidone, and aripiprazole. However, weight gain can occur with all of these drugs and considerable variability exists among patients receiving the same drug regarding the risk of metabolic effects. Anti-psychotic agents not only increase the risk of metabolic disorder, they also increase the risk of CVA, akathisia, and movement disorders including EPS or tardive dyskinesia (more common with first generation antipsychotics) and more. GENE SIGHT RESULTS REVIEWED educated on all medications, benefits, side effects and risk, and educated on depression, anxiety, and mood d/o and educated on compliance of medications, metabolic and movement d/o education appointment is, continue therapy discussion with patient about course of treatment and patient instructions. education on serotonin syndrome different dxn Bipolar II Lamotrigine lamotrigine has a serious rashes requiring hospitalization and discontinue treatment includingSteven Gordy syndrome rare case of toxic epidermal necrolysis and cache related deaths.Incidence with adjunct of epilepsy treatment 0.8% in 2 to 16 years old and 0.3% in adults, bipolarand other mood disorders incidence 0.8% this initial monotherapy and 0.13% as adjunctivetreatment. Other risk factor may include concomitant use of valproate acid derivative or exceeding initiallamotrigine does or does as clinician recommendation; most life-threatening rash of occurring first 2to 8 week of treatment with isolated cases after prolonged treatment; though benign may occur,discontinue treatment at first sign of rash unless clearly not a drug related; TC treatment may notprevent trash from becoming life-threatening or permanently disabling or disfiguring.Comment reaction include, nausea/vomiting, dizziness/vertigo, visual disturbances, somnolence,ataxia, pruritus/rash, pharyngitis, headache, rhinitis, diarrhea, fever, asthenia, insomnia, tremor,abdominal pain, cough, accidental injury, constipation, dysmenorrhea, incoordination, anxiety,seizures, irritability, anorexia, xerostomia, and photosensitivity.Ser ious reactions include: Rash, severe; Smith Gordy syndrome; toxic epidermal necrosis;injury edema, hypersensitivity reactions. Including fatal, multiple organ failure to safe fatal, rash witheosinophilia systemic symptoms, DIC, neutropenia, leukopenia, thrombocytopenia, pancytopenia,aplasti c anemia, hemolytic anemia, i pancreatitis, hepatic failure, rhabdomyolysis, worsening ofsuicidal ideation, worsening of depression, cleft lip/palate [first trimester use]DO not Change Cosmetic, perfumes or soap for next 4 weeks.The patient was advice to take lamotrigine as prescribed the patient was instructed not to deviatefrom the prescription dosages. Stop lamotrigine is the first sign of rash. Patient was insisted to informoffice if any of the serious side effect develops. discuss therpay options- patient does not want at this time see pain management and GI 2. Generalized anxiety disorder - decrease Clonazepam 0.5 mg twicee a day- patient would like to slowly decrease to stop rx over time - no refill needed today educated and discuss GDR and monitor anxiety and panic [facility] local pharmacy in [place] no early refills on control substance educated on no control substance prescribed if cannabis or illegal substance or ETOH abuse UDS and random - SSRI/SNRI side effects discussed including but not limited to, gastric upset, nausea, vomiting, diarrhea and/or constipation, weight changes, sexual side effects including loss of libido, increased suicidal thoughts/behaviors in children and young adults, and serotonin syndrome. colonoscopy 2013refused flu vaccinesrefused COVID vaccines Discussed and educated pt regarding benzodiazepines are generally not intended for prolonged use and that use can cause tolerance, dependence, depression, and associated memory issues including dementias (this list is not exhaustive). Benzodiazepine use is generally not recommended concurrently with pain medications and/or other controlled substances due to increased risks of profound sedation, respiratory depression, coma, and even . They are not to be used with any alcohol, as this combination can also be lethal. Patient was provided caution http_s://www.CollabFinder.[employer]/cannabis-us o-gsmkvodu-tltddlwfc -adhd/ http_s://www.maxwell.or g/Rkric-Azrpht-Plwwx ss/Mihntc-Xzoknc-Mks ditions http_s://psychcentra Keukey.com/depression/the -cognitive-symptoms- of-depression#treatm ents http__s://www.nimh.n ih.gov/health/topics /joqudn-ktnvxn-eebfx ations http__s://www.maxwell.o rg/Lgppw-Mjpgpi-Yuyh ess/Treatments/Menta b-Xjaxud-Qfkhaovbgeq 3. Tobacco user General health and safety guidelines: Do not smoke. Nicotine and other chemicals in cigarettes and cigars can cause lung damage. Ask your healthcare provider for information if you currently smoke and need help to quit. E-cigarettes or smokeless tobacco still contain nicotine. Talk to your healthcare provider before you use these products. Smoking Education Do not smoke. Nicotine and other chemicals in cigarettes and cigars can cause lung damage. Ask your healthcare provider for information if you currently smoke and need help to quit. E-cigarettes or smokeless tobacco still contain nicotine. Talk to your healthcare provider before you use these products. education on decrease to stopping nicotine products and stop smoking hotline given 156Quit - Yes [place] Tobacco Quitline Call a Smoking Quitline The [employer] Smoking Quitline, (6-389-30A-QUIT) Smokefree.gov, which connects you with your State's Quitline, (1-614-WHHSEBU) [facility] Smoking Quitline, (2-532-IYKAZFM) 4. Primary insomnia see sleep provider- scheduled [facility] 5. Long-term drug therapy -control substance agreement Clonazepam UDS 07/22/2025 MDD (major depressive disorder), recurrent episode, moderate (ICD-10 - F33.1) 1.major depression - continue depression- discuss and educated on medications options- reviewed Gene Sight pateint having chornic insomania and may be trigger auditory and olfactory hallucinations- has a referral to sleep study per PCP - scheduled - [facility] patient also seeing neurosurgeon for migraines and headaches MRI brain- hx 2 years ago and neurosurgeon scheduled 07/01 and nerve conduction test scheduled 07/01 medical issues - see specialists colonoscopy 11/24/23 hx auditory hallucinations- refer to neurologist and r/o migrianes and insomnia cause- psychosis auditory and olfactory and sleep issues and with migraine hx on Botox educated and discuss presently taking Lamotrigine 150 mg po hs - pateint would like to taper off rx slowly- Decrease Lamotrigine 100 mg daily - for 30 days- patient has rx at home to use no refill needed discuss and educated monitoring depression and mood and tapering process pateint would like to try different medication options after off rx refer to therapy Second generation antipsychotics (SGAs) have metabolic syndrome issues with weight gain, increase in prolactin, increased waist circumference, increased lipids, and increased glucose. Thus routine monitoring of weight, metabolic labs, etc. is indicated. A general rank ordering of antipsychotics that have the greatest to the least risk of metabolic effects is olanzapine, quetiapine, risperidone, ziprasidone, and aripiprazole. However, weight gain can occur with all of these drugs and considerable variability exists among patients receiving the same drug regarding the risk of metabolic effects. Anti-psychotic agents not only increase the risk of metabolic disorder, they also increase the risk of CVA, akathisia, and movement disorders including EPS or tardive dyskinesia (more common with first generation antipsychotics) and more. GENE SIGHT RESULTS REVIEWED educated on all medications, benefits, side effects and risk, and educated on depression, anxiety, and mood d/o and educated on compliance of medications, metabolic and movement d/o education appointment is, continue therapy discussion with patient about course of treatment and patient instructions. education on serotonin syndrome different dxn Bipolar II Lamotrigine lamotrigine has a serious rashes requiring hospitalization and discontinue treatment includingSteven Gordy syndrome rare case of toxic epidermal necrolysis and cache related deaths.Incidence with adjunct of epilepsy treatment 0.8% in 2 to 16 years old and 0.3% in adults, bipolarand other mood disorders incidence 0.8% this initial monotherapy and 0.13% as adjunctivetreatment. Other risk factor may include concomitant use of valproate acid derivative or exceeding initiallamotrigine does or does as clinician recommendation; most life-threatening rash of occurring first 2to 8 week of treatment with isolated cases after prolonged treatment; though benign may occur,discontinue treatment at first sign of rash unless clearly not a drug related; TC treatment may notprevent trash from becoming life-threatening or permanently disabling or disfiguring.Comment reaction include, nausea/vomiting, dizziness/vertigo, visual disturbances, somnolence,ataxia, pruritus/rash, pharyngitis, headache, rhinitis, diarrhea, fever, asthenia, insomnia, tremor,abdominal pain, cough, accidental injury, constipation, dysmenorrhea, incoordination, anxiety,seizures, irritability, anorexia, xerostomia, and photosensitivity.Ser ious reactions include: Rash, severe; Smith Gordy syndrome; toxic epidermal necrosis;injury edema, hypersensitivity reactions. Including fatal, multiple organ failure to safe fatal, rash witheosinophilia systemic symptoms, DIC, neutropenia, leukopenia, thrombocytopenia, pancytopenia,aplasti c anemia, hemolytic anemia, i pancreatitis, hepatic failure, rhabdomyolysis, worsening ofsuicidal ideation, worsening of depression, cleft lip/palate [first trimester use]DO not Change Cosmetic, perfumes or soap for next 4 weeks.The patient was advice to take lamotrigine as prescribed the patient was instructed not to deviatefrom the prescription dosages. Stop lamotrigine is the first sign of rash. Patient was insisted to informoffice if any of the serious side effect develops. discuss therpay options- patient does not want at this time see pain management and GI 2. Generalized anxiety disorder - decrease Clonazepam 0.5 mg twicee a day- patient would like to slowly decrease to stop rx over time - no refill needed today educated and discuss GDR and monitor anxiety and panic [facility] local pharmacy in [place] no early refills on control substance educated on no control substance prescribed if cannabis or illegal substance or ETOH abuse UDS and random - SSRI/SNRI side effects discussed including but not limited to, gastric upset, nausea, vomiting, diarrhea and/or constipation, weight changes, sexual side effects including loss of libido, increased suicidal thoughts/behaviors in children and young adults, and serotonin syndrome. colonoscopy 2013refused flu vaccinesrefused COVID vaccines Discussed and educated pt regarding benzodiazepines are generally not intended for prolonged use and that use can cause tolerance, dependence, depression, and associated memory issues including dementias (this list is not exhaustive). Benzodiazepine use is generally not recommended concurrently with pain medications and/or other controlled substances due to increased risks of profound sedation, respiratory depression, coma, and even . They are not to be used with any alcohol, as this combination can also be lethal. Patient was provided caution http_s://www.CollabFinder.com/cannabis-us w-cllhpnvj-ywmtevbed -adhd/ http_s://www.maxwell.or g/Ukeub-Unprrp-Qpvej ss/Rrknkv-Eikeox-Lcw ditions http_s://psychcentra l.com/depression/the -cognitive-symptoms- of-depression#treatm ents http__s://www.[facility].n ih.gov/health/topics /hrtjbh-lugbgn-sjnjh ations http__s://www.maxwell.o rg/Bghew-Gyqcni-Eohf ess/Treatments/Menta e-Gvdhkm-Bxtakycygaz 3. Tobacco user General health and safety guidelines: Do not smoke. Nicotine and other chemicals in cigarettes and cigars can cause lung damage. Ask your healthcare provider for information if you currently smoke and need help to quit. E-cigarettes or smokeless tobacco still contain nicotine. Talk to your healthcare provider before you use these products. Smoking Education Do not smoke. Nicotine and other chemicals in cigarettes and cigars can cause lung damage. Ask your healthcare provider for information if you currently smoke and need help to quit. E-cigarettes or smokeless tobacco still contain nicotine. Talk to your healthcare provider before you use these products. education on decrease to stopping nicotine products and stop smoking hotline given 454-Quit - Yes [place] Tobacco Quitline Call a Smoking Quitline The [employer] Smoking Quitline, (1-789-53H-QUIT) Smokefree.gov, which connects you with your State's Quitline, (0-392-TPGWDMU) Veterans Smoking Quitline, (3-723-KBXLSHU) 4. Primary insomnia see sleep provider- scheduled [facility] 5. Long-term drug therapy -control substance agreement Clonazepam UDS 08/21/2024 Major depressive disorder with psychotic features (ICD-10 - F32.3) Learning About Depression material was published, Learning About Depression Screening material was published, Depression Treatment: Care Instructions material was published 1.major depression - with auditory hallucinations- refer to neurologist and r/o migrianes and insomnia cause- psychosis improved and sleep improved with migraine improved on Botox educated and discuss patient stopped Seroquel 25 mg at bedtime - dizziness, and extreme fatigue Lamotrigine 200 mg po hs - [facility] Second generation antipsychotics (SGAs) have metabolic syndrome issues with weight gain, increase in prolactin, increased waist circumference, increased lipids, and increased glucose. Thus routine monitoring of weight, metabolic labs, etc. is indicated. A general rank ordering of antipsychotics that have the greatest to the least risk of metabolic effects is olanzapine, quetiapine, risperidone, ziprasidone, and aripiprazole. However, weight gain can occur with all of these drugs and considerable variability exists among patients receiving the same drug regarding the risk of metabolic effects. Anti-psychotic agents not only increase the risk of metabolic disorder, they also increase the risk of CVA, akathisia, and movement disorders including EPS or tardive dyskinesia (more common with first generation antipsychotics) and more. GENE SIGHT RESULTS REVIEWED and copy given to patient educated on all medications, benefits, side effects and risk, and educated on depression, anxiety, and mood d/o and educated on compliance of medications, metabolic and movement d/o education appointment is, continue therapy discussion with patient about course of treatment and patient instructions. education on serotonin syndrome different dxn Bipolar II Lamotrigine lamotrigine has a serious rashes requiring hospitalization and discontinue treatment includingSteven Gordy syndrome rare case of toxic epidermal necrolysis and cache related deaths.Incidence with adjunct of epilepsy treatment 0.8% in 2 to 16 years old and 0.3% in adults, bipolarand other mood disorders incidence 0.8% this initial monotherapy and 0.13% as adjunctivetreatment. Other risk factor may include concomitant use of valproate acid derivative or exceeding initiallamotrigine does or does as clinician recommendation; most life-threatening rash of occurring first 2to 8 week of treatment with isolated cases after prolonged treatment; though benign may occur,discontinue treatment at first sign of rash unless clearly not a drug related; TC treatment may notprevent trash from becoming life-threatening or permanently disabling or disfiguring.Comment reaction include, nausea/vomiting, dizziness/vertigo, visual disturbances, somnolence,ataxia, pruritus/rash, pharyngitis, headache, rhinitis, diarrhea, fever, asthenia, insomnia, tremor,abdominal pain, cough, accidental injury, constipation, dysmenorrhea, incoordination, anxiety,seizures, irritability, anorexia, xerostomia, and photosensitivity.Ser ious reactions include: Rash, severe; Smith Gordy syndrome; toxic epidermal necrosis;injury edema, hypersensitivity reactions. Including fatal, multiple organ failure to safe fatal, rash witheosinophilia systemic symptoms, DIC, neutropenia, leukopenia, thrombocytopenia, pancytopenia,aplasti c anemia, hemolytic anemia, i pancreatitis, hepatic failure, rhabdomyolysis, worsening ofsuicidal ideation, worsening of depression, cleft lip/palate [first trimester use]DO not Change Cosmetic, perfumes or soap for next 4 weeks.The patient was advice to take lamotrigine as prescribed the patient was instructed not to deviatefrom the prescription dosages. Stop lamotrigine is the first sign of rash. Patient was insisted to informoffice if any of the serious side effect develops. discuss therpay options- patient does not want at this time lamotrigine 200 mg tablet - Take 1 tablet(s) every day by oral route at bedtime 2. Generalized anxiety disorder -Clonazepam 1.5 mg PO HS [facility] local pharmacy in [place] no early refills on control substance educated on no control substance prescribed if cannabis or illegal substance or ETOH abuse UDS and random - SSRI/SNRI side effects discussed including but not limited to, gastric upset, nausea, vomiting, diarrhea and/or constipation, weight changes, sexual side effects including loss of libido, increased suicidal thoughts/behaviors in children and young adults, and serotonin syndrome. colonoscopy 2013refused flu vaccinesrefused COVID vaccines Discussed and educated pt regarding benzodiazepines are generally not intended for prolonged use and that use can cause tolerance, dependence, depression, and associated memory issues including dementias (this list is not exhaustive). Benzodiazepine use is generally not recommended concurrently with pain medications and/or other controlled substances due to increased risks of profound sedation, respiratory depression, coma, and even . They are not to be used with any alcohol, as this combination can also be lethal. Patient was provided caution http_s://www.CollabFinder.Petco/cannabis-us v-luagxngl-bqvwmkzwv -adhd/ http_s://www.maxwell.or g/Xmhgf-Cqwwhf-Tdtbv ss/Qijdzv-Ybiykg-Pae ditions http_s://psychcentra Keukey.com/depression/the -cognitive-symptoms- of-depression#treatm ents http__s://www.nimh.n ih.gov/health/topics /tpktok-jdefvk-rttau ations http__s://www.maxwell.o rg/Bgucl-Aanjbp-Uvic ess/Treatments/Menta c-Zghajg-Vsjdxufcogy 3. Tobacco user General health and safety guidelines: Do not smoke. Nicotine and other chemicals in cigarettes and cigars can cause lung damage. Ask your healthcare provider for information if you currently smoke and need help to quit. E-cigarettes or smokeless tobacco still contain nicotine. Talk to your healthcare provider before you use these products. 4. Primary insomnia see sleep provider 5. Long-term drug therapy -control substance agreement Clonazepam UDS 07/22/2025 Primary insomnia (ICD-10 - F51.01) Insomnia: Care Instructions material was published, Learning About Sleeping Well material was published, Insomnia: Care Instructions material was published, Learning About Sleeping Well material was published 1.major depression - continue depression- discuss and educated on medications options- reviewed Gene Sight pateint having chornic insomania and may be trigger auditory and olfactory hallucinations- has a referral to sleep study per PCP - scheduled - [facility] patient also seeing neurosurgeon for migraines and headaches MRI brain- hx 2 years ago and neurosurgeon scheduled 07/01 and nerve conduction test scheduled 07/01 medical issues - see specialists colonoscopy 11/24/23 hx auditory hallucinations- refer to neurologist and r/o migrianes and insomnia cause- psychosis auditory and olfactory and sleep issues and with migraine hx on Botox educated and discuss presently taking Lamotrigine 150 mg po hs - pateint would like to taper off rx slowly- Decrease Lamotrigine 100 mg daily - for 30 days- patient has rx at home to use no refill needed discuss and educated monitoring depression and mood and tapering process pateint would like to try different medication options after off rx refer to therapy Second generation antipsychotics (SGAs) have metabolic syndrome issues with weight gain, increase in prolactin, increased waist circumference, increased lipids, and increased glucose. Thus routine monitoring of weight, metabolic labs, etc. is indicated. A general rank ordering of antipsychotics that have the greatest to the least risk of metabolic effects is olanzapine, quetiapine, risperidone, ziprasidone, and aripiprazole. However, weight gain can occur with all of these drugs and considerable variability exists among patients receiving the same drug regarding the risk of metabolic effects. Anti-psychotic agents not only increase the risk of metabolic disorder, they also increase the risk of CVA, akathisia, and movement disorders including EPS or tardive dyskinesia (more common with first generation antipsychotics) and more. GENE SIGHT RESULTS REVIEWED educated on all medications, benefits, side effects and risk, and educated on depression, anxiety, and mood d/o and educated on compliance of medications, metabolic and movement d/o education appointment is, continue therapy discussion with patient about course of treatment and patient instructions. education on serotonin syndrome different dxn Bipolar II Lamotrigine lamotrigine has a serious rashes requiring hospitalization and discontinue treatment includingSteven Gordy syndrome rare case of toxic epidermal necrolysis and cache related deaths.Incidence with adjunct of epilepsy treatment 0.8% in 2 to 16 years old and 0.3% in adults, bipolarand other mood disorders incidence 0.8% this initial monotherapy and 0.13% as adjunctivetreatment. Other risk factor may include concomitant use of valproate acid derivative or exceeding initiallamotrigine does or does as clinician recommendation; most life-threatening rash of occurring first 2to 8 week of treatment with isolated cases after prolonged treatment; though benign may occur,discontinue treatment at first sign of rash unless clearly not a drug related; TC treatment may notprevent trash from becoming life-threatening or permanently disabling or disfiguring.Comment reaction include, nausea/vomiting, dizziness/vertigo, visual disturbances, somnolence,ataxia, pruritus/rash, pharyngitis, headache, rhinitis, diarrhea, fever, asthenia, insomnia, tremor,abdominal pain, cough, accidental injury, constipation, dysmenorrhea, incoordination, anxiety,seizures, irritability, anorexia, xerostomia, and photosensitivity.Ser ious reactions include: Rash, severe; Smith Gordy syndrome; toxic epidermal necrosis;injury edema, hypersensitivity reactions. Including fatal, multiple organ failure to safe fatal, rash witheosinophilia systemic symptoms, DIC, neutropenia, leukopenia, thrombocytopenia, pancytopenia,aplasti c anemia, hemolytic anemia, i pancreatitis, hepatic failure, rhabdomyolysis, worsening ofsuicidal ideation, worsening of depression, cleft lip/palate [first trimester use]DO not Change Cosmetic, perfumes or soap for next 4 weeks.The patient was advice to take lamotrigine as prescribed the patient was instructed not to deviatefrom the prescription dosages. Stop lamotrigine is the first sign of rash. Patient was insisted to informoffice if any of the serious side effect develops. discuss therpay options- patient does not want at this time see pain management and GI 2. Generalized anxiety disorder - decrease Clonazepam 0.5 mg twicee a day- patient would like to slowly decrease to stop rx over time - no refill needed today educated and discuss GDR and monitor anxiety and panic [facility] local pharmacy in [place] no early refills on control substance educated on no control substance prescribed if cannabis or illegal substance or ETOH abuse UDS and random - SSRI/SNRI side effects discussed including but not limited to, gastric upset, nausea, vomiting, diarrhea and/or constipation, weight changes, sexual side effects including loss of libido, increased suicidal thoughts/behaviors in children and young adults, and serotonin syndrome. colonoscopy 2013refused flu vaccinesrefused COVID vaccines Discussed and educated pt regarding benzodiazepines are generally not intended for prolonged use and that use can cause tolerance, dependence, depression, and associated memory issues including dementias (this list is not exhaustive). Benzodiazepine use is generally not recommended concurrently with pain medications and/or other controlled substances due to increased risks of profound sedation, respiratory depression, coma, and even . They are not to be used with any alcohol, as this combination can also be lethal. Patient was provided caution http_s://www.[employer]/cannabis-us x-cpktbnzm-qoarqwlso -adhd/ http_s://www.maxwell.or g/Rdvpp-Qdglyx-Ecwwj ss/Wixlnc-Jprwmv-Qvd ditions http_s://psychcentra [employer]/depression/the -cognitive-symptoms- of-depression#treatm ents http__s://www.nimh.n ih.gov/health/topics /jmkvjv-ebhqrt-mbiiy ations http__s://www.maxwell.o rg/Dtdgm-Ezdtke-Gdrl ess/Treatments/Menta t-Oxneiq-Twgwwhujfdz 3. Tobacco user General health and safety guidelines: Do not smoke. Nicotine and other chemicals in cigarettes and cigars can cause lung damage. Ask your healthcare provider for information if you currently smoke and need help to quit. E-cigarettes or smokeless tobacco still contain nicotine. Talk to your healthcare provider before you use these products. Smoking Education Do not smoke. Nicotine and other chemicals in cigarettes and cigars can cause lung damage. Ask your healthcare provider for information if you currently smoke and need help to quit. E-cigarettes or smokeless tobacco still contain nicotine. Talk to your healthcare provider before you use these products. education on decrease to stopping nicotine products and stop smoking hotline given 555-Quit - Yes [place] Tobacco Quitline Call a Smoking Quitline The [employer] Smoking Quitline, (1-512-07R-QUIT) Smokefree.gov, which connects you with your State's Quitline, (1-460-ANXHKBJ) Veterans Smoking Quitline, (8-422-CCUOICL) 4. Primary insomnia see sleep provider- scheduled [facility] 5. Long-term drug therapy -control substance agreement Clonazepam UDS 06/24/2025 Primary insomnia (ICD-10 - F51.01) Insomnia: Care Instructions material was published, Learning About Sleep[facility] Well material was published, Insomnia: Care Instructions material was published, Learning About Sleep[facility] Well material was published 1.major depression - continue depression- discuss and educated on medications options- reviewed [facility] patient stopped Vyalar 1.5 mg day pateint having chornic insomania and may be trigger auditory and olfactory hallucinations- has a referral to sleep study per PCP patient also seeing neurosurgeon for migraines and headaches MRI brain- hx 2 years ago and neurosurgeon scheduled 07/01 and nerve conduction test scheduled 07/01 medical issues - see specialists colonoscopy 11/24/23 hx auditory hallucinations- refer to neurologist and r/o migrianes and insomnia cause- psychosis auditory and olfactory and sleep issues and with migraine hx on Botox educated and discuss presently taking Lamotrigine 200 mg po hs - pateint would like to taper off rx slowly- Decrease Lamotrigine 150 mg daily - for 30 days discuss and educated monitoring depression and mood and tapering process pateint would like to try different medication options after off rx refer to therapy Second generation antipsychotics (SGAs) have metabolic syndrome issues with weight gain, increase in prolactin, increased waist circumference, increased lipids, and increased glucose. Thus routine monitoring of weight, metabolic labs, etc. is indicated. A general rank ordering of antipsychotics that have the greatest to the least risk of metabolic effects is olanzapine, quetiapine, risperidone, ziprasidone, and aripiprazole. However, weight gain can occur with all of these drugs and considerable variability exists among patients receiving the same drug regarding the risk of metabolic effects. Anti-psychotic agents not only increase the risk of metabolic disorder, they also increase the risk of CVA, akathisia, and movement disorders including EPS or tardive dyskinesia (more common with first generation antipsychotics) and more. GENE SIGHT RESULTS REVIEWED educated on all medications, benefits, side effects and risk, and educated on depression, anxiety, and mood d/o and educated on compliance of medications, metabolic and movement d/o education appointment is, continue therapy discussion with patient about course of treatment and patient instructions. education on serotonin syndrome different dxn Bipolar II Lamotrigine lamotrigine has a serious rashes requiring hospitalization and discontinue treatment includingSteven Gordy syndrome rare case of toxic epidermal necrolysis and cache related deaths.Incidence with adjunct of epilepsy treatment 0.8% in 2 to 16 years old and 0.3% in adults, bipolarand other mood disorders incidence 0.8% this initial monotherapy and 0.13% as adjunctivetreatment. Other risk factor may include concomitant use of valproate acid derivative or exceeding initiallamotrigine does or does as clinician recommendation; most life-threatening rash of occurring first 2to 8 week of treatment with isolated cases after prolonged treatment; though benign may occur,discontinue treatment at first sign of rash unless clearly not a drug related; TC treatment may notprevent trash from becoming life-threatening or permanently disabling or disfiguring.Comment reaction include, nausea/vomiting, dizziness/vertigo, visual disturbances, somnolence,ataxia, pruritus/rash, pharyngitis, headache, rhinitis, diarrhea, fever, asthenia, insomnia, tremor,abdominal pain, cough, accidental injury, constipation, dysmenorrhea, incoordination, anxiety,seizures, irritability, anorexia, xerostomia, and photosensitivity.Ser ious reactions include: Rash, severe; Smith Gordy syndrome; toxic epidermal necrosis;injury edema, hypersensitivity reactions. Including fatal, multiple organ failure to safe fatal, rash witheosinophilia systemic symptoms, DIC, neutropenia, leukopenia, thrombocytopenia, pancytopenia,aplasti c anemia, hemolytic anemia, i pancreatitis, hepatic failure, rhabdomyolysis, worsening ofsuicidal ideation, worsening of depression, cleft lip/palate [first trimester use]DO not Change Cosmetic, perfumes or soap for next 4 weeks.The patient was advice to take lamotrigine as prescribed the patient was instructed not to deviatefrom the prescription dosages. Stop lamotrigine is the first sign of rash. Patient was insisted to informoffice if any of the serious side effect develops. discuss therpay options- patient does not want at this time see pain management and GI 2. Generalized anxiety disorder - decrease Clonazepam 0.5 mg three times a day- patient would like to slowly decrease to stop rx over time - no refill needed today educated and discuss GDR and monitor anxiety and panic [facility] local pharmacy in [place] no early refills on control substance educated on no control substance prescribed if cannabis or illegal substance or ETOH abuse UDS and random - SSRI/SNRI side effects discussed including but not limited to, gastric upset, nausea, vomiting, diarrhea and/or constipation, weight changes, sexual side effects including loss of libido, increased suicidal thoughts/behaviors in children and young adults, and serotonin syndrome. colonoscopy 2013refused flu vaccinesrefused COVID vaccines Discussed and educated pt regarding benzodiazepines are generally not intended for prolonged use and that use can cause tolerance, dependence, depression, and associated memory issues including dementias (this list is not exhaustive). Benzodiazepine use is generally not recommended concurrently with pain medications and/or other controlled substances due to increased risks of profound sedation, respiratory depression, coma, and even . They are not to be used with any alcohol, as this combination can also be lethal. Patient was provided caution http_s://www.[employer]/cannabis-us h-bzgzfbob-ldhaxlqut -adhd/ http_s://www.maxwell.or g/Tpqud-Nfzipg-Llomt ss/Otechw-Aftums-Oza ditions http_s://psychcentra l.com/depression/the -cognitive-symptoms- of-depression#treatm ents http__s://www.nimh.n ih.gov/health/topics /rzlfqs-pdsraj-lcueo ations http__s://www.maxwell.o rg/Rtola-Hqfzvh-Cyog ess/Treatments/Menta z-Zuuwmf-Qdehvwnfbkm 3. Tobacco user General health and safety guidelines: Do not smoke. Nicotine and other chemicals in cigarettes and cigars can cause lung damage. Ask your healthcare provider for information if you currently smoke and need help to quit. E-cigarettes or smokeless tobacco still contain nicotine. Talk to your healthcare provider before you use these products. Smoking Education Do not smoke. Nicotine and other chemicals in cigarettes and cigars can cause lung damage. Ask your healthcare provider for information if you currently smoke and need help to quit. E-cigarettes or smokeless tobacco still contain nicotine. Talk to your healthcare provider before you use these products. education on decrease to stopping nicotine products and stop smoking hotline given -Quit - Yes [place] Tobacco Quitline Call a Smoking Quitline The [employer] Smoking Quitline, (6-471-25F-QUIT) Smokefree.gov, which connects you with your State's Quitline, (3-286-MDBKVXO) Veterans Smoking Quitline, (0-231-TBTPDYO) 4. Primary insomnia see sleep provider 5. Long-term drug therapy -control substance agreement Clonazepam UDS 06/03/2025 MDD (major depressive disorder), recurrent episode, moderate (ICD-10 - F33.1) 1.major depression - continue depression- discuss and educated on medications options- reviewed [facility] Increase Vyalar 1.5 mg day for depression and auditory and olfactory hallucinations- samples given patient also seeing neurosurgeon for migraines and headaches MRI brain- hx 2 years ago and neurosurgeon scheduled 07/01 will discuss medical issues - see specialists colonoscopy 11/24/23 hx auditory hallucinations- refer to neurologist and r/o migrianes and insomnia cause- psychosis auditory and olfactory and sleep issues and with migraine hx on Botox educated and discuss Lamotrigine 200 mg po hs - [facility] refer to therapy Second generation antipsychotics (SGAs) have metabolic syndrome issues with weight gain, increase in prolactin, increased waist circumference, increased lipids, and increased glucose. Thus routine monitoring of weight, metabolic labs, etc. is indicated. A general rank ordering of antipsychotics that have the greatest to the least risk of metabolic effects is olanzapine, quetiapine, risperidone, ziprasidone, and aripiprazole. However, weight gain can occur with all of these drugs and considerable variability exists among patients receiving the same drug regarding the risk of metabolic effects. Anti-psychotic agents not only increase the risk of metabolic disorder, they also increase the risk of CVA, akathisia, and movement disorders including EPS or tardive dyskinesia (more common with first generation antipsychotics) and more. GENE SIGHT RESULTS REVIEWED educated on all medications, benefits, side effects and risk, and educated on depression, anxiety, and mood d/o and educated on compliance of medications, metabolic and movement d/o education appointment is, continue therapy discussion with patient about course of treatment and patient instructions. education on serotonin syndrome different dxn Bipolar II Lamotrigine lamotrigine has a serious rashes requiring hospitalization and discontinue treatment includingSteven Gordy syndrome rare case of toxic epidermal necrolysis and cache related deaths.Incidence with adjunct of epilepsy treatment 0.8% in 2 to 16 years old and 0.3% in adults, bipolarand other mood disorders incidence 0.8% this initial monotherapy and 0.13% as adjunctivetreatment. Other risk factor may include concomitant use of valproate acid derivative or exceeding initiallamotrigine does or does as clinician recommendation; most life-threatening rash of occurring first 2to 8 week of treatment with isolated cases after prolonged treatment; though benign may occur,discontinue treatment at first sign of rash unless clearly not a drug related; TC treatment may notprevent trash from becoming life-threatening or permanently disabling or disfiguring.Comment reaction include, nausea/vomiting, dizziness/vertigo, visual disturbances, somnolence,ataxia, pruritus/rash, pharyngitis, headache, rhinitis, diarrhea, fever, asthenia, insomnia, tremor,abdominal pain, cough, accidental injury, constipation, dysmenorrhea, incoordination, anxiety,seizures, irritability, anorexia, xerostomia, and photosensitivity.Ser ious reactions include: Rash, severe; Smith Gordy syndrome; toxic epidermal necrosis;injury edema, hypersensitivity reactions. Including fatal, multiple organ failure to safe fatal, rash witheosinophilia systemic symptoms, DIC, neutropenia, leukopenia, thrombocytopenia, pancytopenia,aplasti c anemia, hemolytic anemia, i pancreatitis, hepatic failure, rhabdomyolysis, worsening ofsuicidal ideation, worsening of depression, cleft lip/palate [first trimester use]DO not Change Cosmetic, perfumes or soap for next 4 weeks.The patient was advice to take lamotrigine as prescribed the patient was instructed not to deviatefrom the prescription dosages. Stop lamotrigine is the first sign of rash. Patient was insisted to informoffice if any of the serious side effect develops. discuss therpay options- patient does not want at this time lamotrigine 200 mg tablet - Take 1 tablet(s) every day by oral route at bedtime see pain management and GI 2. Generalized anxiety disorder - increase Clonazepam 0.5 mg four times a day [facility] local pharmacy in [place] no early refills on control substance educated on no control substance prescribed if cannabis or illegal substance or ETOH abuse UDS and random - SSRI/SNRI side effects discussed including but not limited to, gastric upset, nausea, vomiting, diarrhea and/or constipation, weight changes, sexual side effects including loss of libido, increased suicidal thoughts/behaviors in children and young adults, and serotonin syndrome. colonoscopy 2013refused flu vaccinesrefused COVID vaccines Discussed and educated pt regarding benzodiazepines are generally not intended for prolonged use and that use can cause tolerance, dependence, depression, and associated memory issues including dementias (this list is not exhaustive). Benzodiazepine use is generally not recommended concurrently with pain medications and/or other controlled substances due to increased risks of profound sedation, respiratory depression, coma, and even . They are not to be used with any alcohol, as this combination can also be lethal. Patient was provided caution http_s://www.[employer]/cannabis-us a-nghvbzol-oquwbhkoh -adhd/ http_s://www.maxwell.or g/Tilin-Hpwkil-Hwmel ss/Klsxgs-Uovlix-Ztc ditions http_s://psychcentra [employer]/depression/the -cognitive-symptoms- of-depression#treatm ents http__s://www.[facility].n ih.gov/health/topics /pzkhpg-qoasum-jkmhp ations http__s://www.maxwell.o rg/Osdgm-Ijojpq-Lkcs ess/Treatments/Menta r-Ylgpps-Ctmrdirbmni 3. Tobacco user General health and safety guidelines: Do not smoke. Nicotine and other chemicals in cigarettes and cigars can cause lung damage. Ask your healthcare provider for information if you currently smoke and need help to quit. E-cigarettes or smokeless tobacco still contain nicotine. Talk to your healthcare provider before you use these products. Smoking Education Do not smoke. Nicotine and other chemicals in cigarettes and cigars can cause lung damage. Ask your healthcare provider for information if you currently smoke and need help to quit. E-cigarettes or smokeless tobacco still contain nicotine. Talk to your healthcare provider before you use these products. education on decrease to stopping nicotine products and stop smoking hotline given -Quit - Yes [place] Tobacco Quitline Call a Smoking Quitline The [employer] Smoking Quitline, (1-144-19I-QUIT) Smokefree.gov, which connects you with your State's Quitline, (5-840-NLYMGGR) Veterans Smoking Quitline, (6-714-TKXXCVZ) 4. Primary insomnia see sleep provider 5. Long-term drug therapy -control substance agreement Clonazepam UDS 05/20/2025 MDD (major depressive disorder), recurrent episode, moderate (ICD-10 - F33.1) 1.major depression - continue depression- discuss and educated on medications options- reviewed [facility] Add Vyalar 1.5 mg every other day for depression and auditory hallucinations- samples given patient also seeing neurosurgeon for migraines and headaches medical issues - see specialists colonoscopy 11/24/23 hx auditory hallucinations- refer to neurologist and r/o migrianes and insomnia cause- psychosis auditory and sleep issues and with migraine hx on Botox educated and discuss Lamotrigine 200 mg po hs - [facility] Second generation antipsychotics (SGAs) have metabolic syndrome issues with weight gain, increase in prolactin, increased waist circumference, increased lipids, and increased glucose. Thus routine monitoring of weight, metabolic labs, etc. is indicated. A general rank ordering of antipsychotics that have the greatest to the least risk of metabolic effects is olanzapine, quetiapine, risperidone, ziprasidone, and aripiprazole. However, weight gain can occur with all of these drugs and considerable variability exists among patients receiving the same drug regarding the risk of metabolic effects. Anti-psychotic agents not only increase the risk of metabolic disorder, they also increase the risk of CVA, akathisia, and movement disorders including EPS or tardive dyskinesia (more common with first generation antipsychotics) and more. GENE SIGHT RESULTS REVIEWED educated on all medications, benefits, side effects and risk, and educated on depression, anxiety, and mood d/o and educated on compliance of medications, metabolic and movement d/o education appointment is, continue therapy discussion with patient about course of treatment and patient instructions. education on serotonin syndrome different dxn Bipolar II Lamotrigine lamotrigine has a serious rashes requiring hospitalization and discontinue treatment includingSteven Gordy syndrome rare case of toxic epidermal necrolysis and cache related deaths.Incidence with adjunct of epilepsy treatment 0.8% in 2 to 16 years old and 0.3% in adults, bipolarand other mood disorders incidence 0.8% this initial monotherapy and 0.13% as adjunctivetreatment. Other risk factor may include concomitant use of valproate acid derivative or exceeding initiallamotrigine does or does as clinician recommendation; most life-threatening rash of occurring first 2to 8 week of treatment with isolated cases after prolonged treatment; though benign may occur,discontinue treatment at first sign of rash unless clearly not a drug related; TC treatment may notprevent trash from becoming life-threatening or permanently disabling or disfiguring.Comment reaction include, nausea/vomiting, dizziness/vertigo, visual disturbances, somnolence,ataxia, pruritus/rash, pharyngitis, headache, rhinitis, diarrhea, fever, asthenia, insomnia, tremor,abdominal pain, cough, accidental injury, constipation, dysmenorrhea, incoordination, anxiety,seizures, irritability, anorexia, xerostomia, and photosensitivity.Ser ious reactions include: Rash, severe; Smith Gordy syndrome; toxic epidermal necrosis;injury edema, hypersensitivity reactions. Including fatal, multiple organ failure to safe fatal, rash witheosinophilia systemic symptoms, DIC, neutropenia, leukopenia, thrombocytopenia, pancytopenia,aplasti c anemia, hemolytic anemia, i pancreatitis, hepatic failure, rhabdomyolysis, worsening ofsuicidal ideation, worsening of depression, cleft lip/palate [first trimester use]DO not Change Cosmetic, perfumes or soap for next 4 weeks.The patient was advice to take lamotrigine as prescribed the patient was instructed not to deviatefrom the prescription dosages. Stop lamotrigine is the first sign of rash. Patient was insisted to informoffice if any of the serious side effect develops. discuss therpay options- patient does not want at this time lamotrigine 200 mg tablet - Take 1 tablet(s) every day by oral route at bedtime see pain management and GI 2. Generalized anxiety disorder - change Clonazepam 0.5 mg three times a day [facility] local pharmacy in [place] no early refills on control substance educated on no control substance prescribed if cannabis or illegal substance or ETOH abuse UDS and random - SSRI/SNRI side effects discussed including but not limited to, gastric upset, nausea, vomiting, diarrhea and/or constipation, weight changes, sexual side effects including loss of libido, increased suicidal thoughts/behaviors in children and young adults, and serotonin syndrome. colonoscopy 2013refused flu vaccinesrefused COVID vaccines Discussed and educated pt regarding benzodiazepines are generally not intended for prolonged use and that use can cause tolerance, dependence, depression, and associated memory issues including dementias (this list is not exhaustive). Benzodiazepine use is generally not recommended concurrently with pain medications and/or other controlled substances due to increased risks of profound sedation, respiratory depression, coma, and even . They are not to be used with any alcohol, as this combination can also be lethal. Patient was provided caution http_s://www.[employer]/cannabis-us y-kyhpvdxf-upcjdmehn -adhd/ http_s://www.maxwell.or g/Bbqca-Lhtrfm-Xxzel ss/Xgmlog-Mydjii-Atx ditions http_s://psychiQVCloud/depression/the -cognitive-symptoms- of-depression#treatm ents http__s://www.nimh.n ih.gov/health/topics /dihaju-kpqwby-xxxig ations http__s://www.maxwell.o rg/Wkepm-Utxvvm-Blpw ess/Treatments/Menta g-Soufrv-Vggtdfoshca 3. Tobacco user General health and safety guidelines: Do not smoke. Nicotine and other chemicals in cigarettes and cigars can cause lung damage. Ask your healthcare provider for information if you currently smoke and need help to quit. E-cigarettes or smokeless tobacco still contain nicotine. Talk to your healthcare provider before you use these products. Smoking Education Do not smoke. Nicotine and other chemicals in cigarettes and cigars can cause lung damage. Ask your healthcare provider for information if you currently smoke and need help to quit. E-cigarettes or smokeless tobacco still contain nicotine. Talk to your healthcare provider before you use these products. education on decrease to stopping nicotine products and stop smoking hotline given -Quit - Yes [place] Tobacco Quitline Call a Smoking Quitline The [employer] Smoking Quitline, (6-851-09L-QUIT) Smokefree.gov, which connects you with your State's Quitline, (9-490-LZJTPUB) Veterans Smoking Quitline, (3-968-AZSJUJF) 4. Primary insomnia see sleep provider 5. Long-term drug therapy -control substance agreement Clonazepam UDS 06/03/2025 Encounter for screening for cardiovascular disorders (ICD-10 - Z13.6) 1.major depression - continue depression- discuss and educated on medications options- reviewed [facility] Sight Increase Vyalar 1.5 mg day for depression and auditory and olfactory hallucinations- samples given patient also seeing neurosurgeon for migraines and headaches MRI brain- hx 2 years ago and neurosurgeon scheduled 07/01 will discuss medical issues - see specialists colonoscopy 11/24/23 hx auditory hallucinations- refer to neurologist and r/o migrianes and insomnia cause- psychosis auditory and olfactory and sleep issues and with migraine hx on Botox educated and discuss Lamotrigine 200 mg po hs - [facility] refer to therapy Second generation antipsychotics (SGAs) have metabolic syndrome issues with weight gain, increase in prolactin, increased waist circumference, increased lipids, and increased glucose. Thus routine monitoring of weight, metabolic labs, etc. is indicated. A general rank ordering of antipsychotics that have the greatest to the least risk of metabolic effects is olanzapine, quetiapine, risperidone, ziprasidone, and aripiprazole. However, weight gain can occur with all of these drugs and considerable variability exists among patients receiving the same drug regarding the risk of metabolic effects. Anti-psychotic agents not only increase the risk of metabolic disorder, they also increase the risk of CVA, akathisia, and movement disorders including EPS or tardive dyskinesia (more common with first generation antipsychotics) and more. GENE SIGHT RESULTS REVIEWED educated on all medications, benefits, side effects and risk, and educated on depression, anxiety, and mood d/o and educated on compliance of medications, metabolic and movement d/o education appointment is, continue therapy discussion with patient about course of treatment and patient instructions. education on serotonin syndrome different dxn Bipolar II Lamotrigine lamotrigine has a serious rashes requiring hospitalization and discontinue treatment includingSteven Gordy syndrome rare case of toxic epidermal necrolysis and cache related deaths.Incidence with adjunct of epilepsy treatment 0.8% in 2 to 16 years old and 0.3% in adults, bipolarand other mood disorders incidence 0.8% this initial monotherapy and 0.13% as adjunctivetreatment. Other risk factor may include concomitant use of valproate acid derivative or exceeding initiallamotrigine does or does as clinician recommendation; most life-threatening rash of occurring first 2to 8 week of treatment with isolated cases after prolonged treatment; though benign may occur,discontinue treatment at first sign of rash unless clearly not a drug related; TC treatment may notprevent trash from becoming life-threatening or permanently disabling or disfiguring.Comment reaction include, nausea/vomiting, dizziness/vertigo, visual disturbances, somnolence,ataxia, pruritus/rash, pharyngitis, headache, rhinitis, diarrhea, fever, asthenia, insomnia, tremor,abdominal pain, cough, accidental injury, constipation, dysmenorrhea, incoordination, anxiety,seizures, irritability, anorexia, xerostomia, and photosensitivity.Ser ious reactions include: Rash, severe; Smith Gordy syndrome; toxic epidermal necrosis;injury edema, hypersensitivity reactions. Including fatal, multiple organ failure to safe fatal, rash witheosinophilia systemic symptoms, DIC, neutropenia, leukopenia, thrombocytopenia, pancytopenia,aplasti c anemia, hemolytic anemia, i pancreatitis, hepatic failure, rhabdomyolysis, worsening ofsuicidal ideation, worsening of depression, cleft lip/palate [first trimester use]DO not Change Cosmetic, perfumes or soap for next 4 weeks.The patient was advice to take lamotrigine as prescribed the patient was instructed not to deviatefrom the prescription dosages. Stop lamotrigine is the first sign of rash. Patient was insisted to informoffice if any of the serious side effect develops. discuss therpay options- patient does not want at this time lamotrigine 200 mg tablet - Take 1 tablet(s) every day by oral route at bedtime see pain management and GI 2. Generalized anxiety disorder - increase Clonazepam 0.5 mg four times a day [facility] local pharmacy in [place] no early refills on control substance educated on no control substance prescribed if cannabis or illegal substance or ETOH abuse UDS and random - SSRI/SNRI side effects discussed including but not limited to, gastric upset, nausea, vomiting, diarrhea and/or constipation, weight changes, sexual side effects including loss of libido, increased suicidal thoughts/behaviors in children and young adults, and serotonin syndrome. colonoscopy 2013refused flu vaccinesrefused COVID vaccines Discussed and educated pt regarding benzodiazepines are generally not intended for prolonged use and that use can cause tolerance, dependence, depression, and associated memory issues including dementias (this list is not exhaustive). Benzodiazepine use is generally not recommended concurrently with pain medications and/or other controlled substances due to increased risks of profound sedation, respiratory depression, coma, and even . They are not to be used with any alcohol, as this combination can also be lethal. Patient was provided caution http_s://www.[employer]/cannabis-us x-xmvepkik-pyexgfhyz -adhd/ http_s://www.maxwell.or g/Xkkpv-Tjtseg-Yziye ss/Blbprx-Peqoiw-Rwy ditions http_s://psychiQVCloud/depression/the -cognitive-symptoms- of-depression#treatm ents http__s://www.nimh.n ih.gov/health/topics /afcwun-qfydnz-jdeie ations http__s://www.maxwell.o rg/Pkcxj-Rbcnqc-Pcha ess/Treatments/Menta l-Flgwsb-Rjhwxypilsl 3. Tobacco user General health and safety guidelines: Do not smoke. Nicotine and other chemicals in cigarettes and cigars can cause lung damage. Ask your healthcare provider for information if you currently smoke and need help to quit. E-cigarettes or smokeless tobacco still contain nicotine. Talk to your healthcare provider before you use these products. Smoking Education Do not smoke. Nicotine and other chemicals in cigarettes and cigars can cause lung damage. Ask your healthcare provider for information if you currently smoke and need help to quit. E-cigarettes or smokeless tobacco still contain nicotine. Talk to your healthcare provider before you use these products. education on decrease to stopping nicotine products and stop smoking hotline given Quit - Yes [place] Tobacco Quitline Call a Smoking Quitline The [employer] Smoking Quitline, (0-578-19V-QUIT) Smokefree.gov, which connects you with your State's Quitline, (6-731-TVXNHJC) [facility] Smoking Quitline, (8-691-IGXWISU) 4. Primary insomnia see sleep provider 5. Long-term drug therapy -control substance agreement Clonazepam UDS 02/18/2025 Encounter for screening for cardiovascular disorders (ICD-10 - Z13.6) 1.major depression - continue depression- medical issues - see specialist colonoscopy 11/24/23 hx auditory hallucinations- refer to neurologist and r/o migrianes and insomnia cause- psychosis improved and sleep improved with migraine improved on Botox educated and discuss Lamotrigine 200 mg po hs - [facility] patient does not want to add or change rx at this time Second generation antipsychotics (SGAs) have metabolic syndrome issues with weight gain, increase in prolactin, increased waist circumference, increased lipids, and increased glucose. Thus routine monitoring of weight, metabolic labs, etc. is indicated. A general rank ordering of antipsychotics that have the greatest to the least risk of metabolic effects is olanzapine, quetiapine, risperidone, ziprasidone, and aripiprazole. However, weight gain can occur with all of these drugs and considerable variability exists among patients receiving the same drug regarding the risk of metabolic effects. Anti-psychotic agents not only increase the risk of metabolic disorder, they also increase the risk of CVA, akathisia, and movement disorders including EPS or tardive dyskinesia (more common with first generation antipsychotics) and more. GENE SIGHT RESULTS REVIEWED and copy given to patient educated on all medications, benefits, side effects and risk, and educated on depression, anxiety, and mood d/o and educated on compliance of medications, metabolic and movement d/o education appointment is, continue therapy discussion with patient about course of treatment and patient instructions. education on serotonin syndrome different dxn Bipolar II Lamotrigine lamotrigine has a serious rashes requiring hospitalization and discontinue treatment includingSteven Gordy syndrome rare case of toxic epidermal necrolysis and cache related deaths.Incidence with adjunct of epilepsy treatment 0.8% in 2 to 16 years old and 0.3% in adults, bipolarand other mood disorders incidence 0.8% this initial monotherapy and 0.13% as adjunctivetreatment. Other risk factor may include concomitant use of valproate acid derivative or exceeding initiallamotrigine does or does as clinician recommendation; most life-threatening rash of occurring first 2to 8 week of treatment with isolated cases after prolonged treatment; though benign may occur,discontinue treatment at first sign of rash unless clearly not a drug related; TC treatment may notprevent trash from becoming life-threatening or permanently disabling or disfiguring.Comment reaction include, nausea/vomiting, dizziness/vertigo, visual disturbances, somnolence,ataxia, pruritus/rash, pharyngitis, headache, rhinitis, diarrhea, fever, asthenia, insomnia, tremor,abdominal pain, cough, accidental injury, constipation, dysmenorrhea, incoordination, anxiety,seizures, irritability, anorexia, xerostomia, and photosensitivity.Ser ious reactions include: Rash, severe; Smith Gordy syndrome; toxic epidermal necrosis;injury edema, hypersensitivity reactions. Including fatal, multiple organ failure to safe fatal, rash witheosinophilia systemic symptoms, DIC, neutropenia, leukopenia, thrombocytopenia, pancytopenia,aplasti c anemia, hemolytic anemia, i pancreatitis, hepatic failure, rhabdomyolysis, worsening ofsuicidal ideation, worsening of depression, cleft lip/palate [first trimester use]DO not Change Cosmetic, perfumes or soap for next 4 weeks.The patient was advice to take lamotrigine as prescribed the patient was instructed not to deviatefrom the prescription dosages. Stop lamotrigine is the first sign of rash. Patient was insisted to informoffice if any of the serious side effect develops. discuss therpay options- patient does not want at this time lamotrigine 200 mg tablet - Take 1 tablet(s) every day by oral route at bedtime see pain management and GI 2. Generalized anxiety disorder -Clonazepam 1.5 mg PO [facility] local pharmacy in [place] no early refills on control substance educated on no control substance prescribed if cannabis or illegal substance or ETOH abuse UDS and random - SSRI/SNRI side effects discussed including but not limited to, gastric upset, nausea, vomiting, diarrhea and/or constipation, weight changes, sexual side effects including loss of libido, increased suicidal thoughts/behaviors in children and young adults, and serotonin syndrome. colonoscopy 2013refused flu vaccinesrefused COVID vaccines Discussed and educated pt regarding benzodiazepines are generally not intended for prolonged use and that use can cause tolerance, dependence, depression, and associated memory issues including dementias (this list is not exhaustive). Benzodiazepine use is generally not recommended concurrently with pain medications and/or other controlled substances due to increased risks of profound sedation, respiratory depression, coma, and even . They are not to be used with any alcohol, as this combination can also be lethal. Patient was provided caution http_s://www.[employer]/cannabis-us f-bbnuobeg-fdhprzlxn -adhd/ http_s://www.maxwell.or g/Ismap-Npdpes-Uchko ss/Fmgisz-Hgvgtl-Phm ditions http_s://psychcentra [employer]/depression/the -cognitive-symptoms- of-depression#treatm ents http__s://www.[facility].n ih.gov/health/topics /kpwdgm-cwrfbc-wouzk ations http__s://www.maxwell.o rg/Zyzuv-Fftulx-Crjd ess/Treatments/Menta w-Expeaz-Mtvluevyhql 3. Tobacco user General health and safety guidelines: Do not smoke. Nicotine and other chemicals in cigarettes and cigars can cause lung damage. Ask your healthcare provider for information if you currently smoke and need help to quit. E-cigarettes or smokeless tobacco still contain nicotine. Talk to your healthcare provider before you use these products. Smoking Education Do not smoke. Nicotine and other chemicals in cigarettes and cigars can cause lung damage. Ask your healthcare provider for information if you currently smoke and need help to quit. E-cigarettes or smokeless tobacco still contain nicotine. Talk to your healthcare provider before you use these products. education on decrease to stopping nicotine products and stop smoking hotline given 798-Quit - Yes [place] Tobacco Quitline Call a Smoking Quitline The [employer] Smoking Quitline, (7-268-34B-QUIT) Smokefree.gov, which connects you with your State's Quitline, (3-422-LZWYIQL) Veterans Smoking Quitline, (8-566-KLQVEWO) 4. Primary insomnia see sleep provider 5. Long-term drug therapy -control substance agreement Clonazepam UDS 08/21/2024 Primary insomnia (ICD-10 - F51.01) Insomnia: Care Instructions material was published, [facility] About Sleep[facility] Well material was published, Insomnia: Care Instructions material was published, Learning About Sleeping Well material was published 1.major depression - with auditory hallucinations- refer to neurologist and r/o migrianes and insomnia cause- psychosis improved and sleep improved with migraine improved on Botox educated and discuss patient stopped Seroquel 25 mg at bedtime - dizziness, and extreme fatigue Lamotrigine 200 mg po hs - [facility] Second generation antipsychotics (SGAs) have metabolic syndrome issues with weight gain, increase in prolactin, increased waist circumference, increased lipids, and increased glucose. Thus routine monitoring of weight, metabolic labs, etc. is indicated. A general rank ordering of antipsychotics that have the greatest to the least risk of metabolic effects is olanzapine, quetiapine, risperidone, ziprasidone, and aripiprazole. However, weight gain can occur with all of these drugs and considerable variability exists among patients receiving the same drug regarding the risk of metabolic effects. Anti-psychotic agents not only increase the risk of metabolic disorder, they also increase the risk of CVA, akathisia, and movement disorders including EPS or tardive dyskinesia (more common with first generation antipsychotics) and more. GENE SIGHT RESULTS REVIEWED and copy given to patient educated on all medications, benefits, side effects and risk, and educated on depression, anxiety, and mood d/o and educated on compliance of medications, metabolic and movement d/o education appointment is, continue therapy discussion with patient about course of treatment and patient instructions. education on serotonin syndrome different dxn Bipolar II Lamotrigine lamotrigine has a serious rashes requiring hospitalization and discontinue treatment includingSteven Gordy syndrome rare case of toxic epidermal necrolysis and cache related deaths.Incidence with adjunct of epilepsy treatment 0.8% in 2 to 16 years old and 0.3% in adults, bipolarand other mood disorders incidence 0.8% this initial monotherapy and 0.13% as adjunctivetreatment. Other risk factor may include concomitant use of valproate acid derivative or exceeding initiallamotrigine does or does as clinician recommendation; most life-threatening rash of occurring first 2to 8 week of treatment with isolated cases after prolonged treatment; though benign may occur,discontinue treatment at first sign of rash unless clearly not a drug related; TC treatment may notprevent trash from becoming life-threatening or permanently disabling or disfiguring.Comment reaction include, nausea/vomiting, dizziness/vertigo, visual disturbances, somnolence,ataxia, pruritus/rash, pharyngitis, headache, rhinitis, diarrhea, fever, asthenia, insomnia, tremor,abdominal pain, cough, accidental injury, constipation, dysmenorrhea, incoordination, anxiety,seizures, irritability, anorexia, xerostomia, and photosensitivity.Ser ious reactions include: Rash, severe; Smith Gordy syndrome; toxic epidermal necrosis;injury edema, hypersensitivity reactions. Including fatal, multiple organ failure to safe fatal, rash witheosinophilia systemic symptoms, DIC, neutropenia, leukopenia, thrombocytopenia, pancytopenia,aplasti c anemia, hemolytic anemia, i pancreatitis, hepatic failure, rhabdomyolysis, worsening ofsuicidal ideation, worsening of depression, cleft lip/palate [first trimester use]DO not Change Cosmetic, perfumes or soap for next 4 weeks.The patient was advice to take lamotrigine as prescribed the patient was instructed not to deviatefrom the prescription dosages. Stop lamotrigine is the first sign of rash. Patient was insisted to informoffice if any of the serious side effect develops. discuss therpay options- patient does not want at this time lamotrigine 200 mg tablet - Take 1 tablet(s) every day by oral route at bedtime 2. Generalized anxiety disorder -Clonazepam 1.5 mg PO HS [facility] local pharmacy in [place] no early refills on control substance educated on no control substance prescribed if cannabis or illegal substance or ETOH abuse UDS and random - SSRI/SNRI side effects discussed including but not limited to, gastric upset, nausea, vomiting, diarrhea and/or constipation, weight changes, sexual side effects including loss of libido, increased suicidal thoughts/behaviors in children and young adults, and serotonin syndrome. colonoscopy 2013refused flu vaccinesrefused COVID vaccines Discussed and educated pt regarding benzodiazepines are generally not intended for prolonged use and that use can cause tolerance, dependence, depression, and associated memory issues including dementias (this list is not exhaustive). Benzodiazepine use is generally not recommended concurrently with pain medications and/or other controlled substances due to increased risks of profound sedation, respiratory depression, coma, and even . They are not to be used with any alcohol, as this combination can also be lethal. Patient was provided caution http_s://www.[employer].com/cannabis-us e-zoirlcmu-vqsznvkdz -adhd/ http_s://www.maxwell.or g/Czzro-Hqtvnw-Fnfhd ss/Osltpm-Cgusok-Dqo ditions http_s://psychcentra [employer].com/depression/the -cognitive-symptoms- of-depression#treatm ents http__s://www.nimh.n ih.gov/health/topics /gbeijr-tnnmeo-smteu ations http__s://www.maxwell.o rg/Hlnmn-Qkhodo-Payw ess/Treatments/Menta m-Grcqiv-Eceorlzmndl 3. Tobacco user General health and safety guidelines: Do not smoke. Nicotine and other chemicals in cigarettes and cigars can cause lung damage. Ask your healthcare provider for information if you currently smoke and need help to quit. E-cigarettes or smokeless tobacco still contain nicotine. Talk to your healthcare provider before you use these products. 4. Primary insomnia see sleep provider 5. Long-term drug therapy -control substance agreement Clonazepam UDS 11/24/2024 Primary insomnia (ICD-10 - F51.01) Insomnia: Care Instructions material was published, Learning About Sleep[facility] Well material was published, Insomnia: Care Instructions material was published, Learning About Sleeping Well material was published 1.major depression - continue depression- medical issues - colonoscopy scheduled 11/24/23 hx auditory hallucinations- refer to neurologist and r/o migrianes and insomnia cause- psychosis improved and sleep improved with migraine improved on Botox educated and discuss Lamotrigine 200 mg po hs - [facility] patient does not want to add or change rx at this time Second generation antipsychotics (SGAs) have metabolic syndrome issues with weight gain, increase in prolactin, increased waist circumference, increased lipids, and increased glucose. Thus routine monitoring of weight, metabolic labs, etc. is indicated. A general rank ordering of antipsychotics that have the greatest to the least risk of metabolic effects is olanzapine, quetiapine, risperidone, ziprasidone, and aripiprazole. However, weight gain can occur with all of these drugs and considerable variability exists among patients receiving the same drug regarding the risk of metabolic effects. Anti-psychotic agents not only increase the risk of metabolic disorder, they also increase the risk of CVA, akathisia, and movement disorders including EPS or tardive dyskinesia (more common with first generation antipsychotics) and more. GENE SIGHT RESULTS REVIEWED and copy given to patient educated on all medications, benefits, side effects and risk, and educated on depression, anxiety, and mood d/o and educated on compliance of medications, metabolic and movement d/o education appointment is, continue therapy discussion with patient about course of treatment and patient instructions. education on serotonin syndrome different dxn Bipolar II Lamotrigine lamotrigine has a serious rashes requiring hospitalization and discontinue treatment includingSteven Gordy syndrome rare case of toxic epidermal necrolysis and cache related deaths.Incidence with adjunct of epilepsy treatment 0.8% in 2 to 16 years old and 0.3% in adults, bipolarand other mood disorders incidence 0.8% this initial monotherapy and 0.13% as adjunctivetreatment. Other risk factor may include concomitant use of valproate acid derivative or exceeding initiallamotrigine does or does as clinician recommendation; most life-threatening rash of occurring first 2to 8 week of treatment with isolated cases after prolonged treatment; though benign may occur,discontinue treatment at first sign of rash unless clearly not a drug related; TC treatment may notprevent trash from becoming life-threatening or permanently disabling or disfiguring.Comment reaction include, nausea/vomiting, dizziness/vertigo, visual disturbances, somnolence,ataxia, pruritus/rash, pharyngitis, headache, rhinitis, diarrhea, fever, asthenia, insomnia, tremor,abdominal pain, cough, accidental injury, constipation, dysmenorrhea, incoordination, anxiety,seizures, irritability, anorexia, xerostomia, and photosensitivity.Ser ious reactions include: Rash, severe; Smith Gordy syndrome; toxic epidermal necrosis;injury edema, hypersensitivity reactions. Including fatal, multiple organ failure to safe fatal, rash witheosinophilia systemic symptoms, DIC, neutropenia, leukopenia, thrombocytopenia, pancytopenia,aplasti c anemia, hemolytic anemia, i pancreatitis, hepatic failure, rhabdomyolysis, worsening ofsuicidal ideation, worsening of depression, cleft lip/palate [first trimester use]DO not Change Cosmetic, perfumes or soap for next 4 weeks.The patient was advice to take lamotrigine as prescribed the patient was instructed not to deviatefrom the prescription dosages. Stop lamotrigine is the first sign of rash. Patient was insisted to informoffice if any of the serious side effect develops. discuss therpay options- patient does not want at this time lamotrigine 200 mg tablet - Take 1 tablet(s) every day by oral route at bedtime 2. Generalized anxiety disorder -Clonazepam 1.5 mg PO HS [facility] local pharmacy in [place] no early refills on control substance educated on no control substance prescribed if cannabis or illegal substance or ETOH abuse UDS and random - SSRI/SNRI side effects discussed including but not limited to, gastric upset, nausea, vomiting, diarrhea and/or constipation, weight changes, sexual side effects including loss of libido, increased suicidal thoughts/behaviors in children and young adults, and serotonin syndrome. colonoscopy 2013refused flu vaccinesrefused COVID vaccines Discussed and educated pt regarding benzodiazepines are generally not intended for prolonged use and that use can cause tolerance, dependence, depression, and associated memory issues including dementias (this list is not exhaustive). Benzodiazepine use is generally not recommended concurrently with pain medications and/or other controlled substances due to increased risks of profound sedation, respiratory depression, coma, and even . They are not to be used with any alcohol, as this combination can also be lethal. Patient was provided caution http_s://www.[employer]/cannabis-us f-vssmrjkf-akcjqckkt -adhd/ http_s://www.[employer].or g/Bfrcq-Ygoehs-Jebtt ss/Gsmbir-Ofqzqu-Wrc ditions http_s://psychcentra [employer]/depression/the -cognitive-symptoms- of-depression#treatm ents http__s://www.nimh.n ih.gov/health/topics /qvhpyf-vegzwj-mqnml ations http__s://www.maxwell.o rg/Ecpqa-Qfkxqt-Igsp ess/Treatments/Menta h-Togopg-Lapemdoynha 3. Tobacco user General health and safety guidelines: Do not smoke. Nicotine and other chemicals in cigarettes and cigars can cause lung damage. Ask your healthcare provider for information if you currently smoke and need help to quit. E-cigarettes or smokeless tobacco still contain nicotine. Talk to your healthcare provider before you use these products. 4. Primary insomnia see sleep provider 5. Long-term drug therapy -control substance agreement Clonazepam UDS 11/24/2024 Tobacco use (ICD-10 - Z72.0) Quitting Tobacco: Care Instructions material was published, Deciding About Using Medicines To Quit Smoking material was published, Learning About Benefits of Quitting Smoking material was published, Stopping Smokeless Tobacco Use: Care Instructions material was published, Stopping Smokeless Tobacco Use: Care Instructions material was published, Learning About Benefits of Quitting Smoking material was published, Deciding About Using Medicines To Quit Smoking material was published, Quitting Tobacco: Care Instructions material was published 1.major depression - continue depression- medical issues - colonoscopy scheduled 11/24/23 hx auditory hallucinations- refer to neurologist and r/o migrianes and insomnia cause- psychosis improved and sleep improved with migraine improved on Botox educated and discuss Lamotrigine 200 mg po hs - [facility] patient does not want to add or change rx at this time Second generation antipsychotics (SGAs) have metabolic syndrome issues with weight gain, increase in prolactin, increased waist circumference, increased lipids, and increased glucose. Thus routine monitoring of weight, metabolic labs, etc. is indicated. A general rank ordering of antipsychotics that have the greatest to the least risk of metabolic effects is olanzapine, quetiapine, risperidone, ziprasidone, and aripiprazole. However, weight gain can occur with all of these drugs and considerable variability exists among patients receiving the same drug regarding the risk of metabolic effects. Anti-psychotic agents not only increase the risk of metabolic disorder, they also increase the risk of CVA, akathisia, and movement disorders including EPS or tardive dyskinesia (more common with first generation antipsychotics) and more. GENE SIGHT RESULTS REVIEWED and copy given to patient educated on all medications, benefits, side effects and risk, and educated on depression, anxiety, and mood d/o and educated on compliance of medications, metabolic and movement d/o education appointment is, continue therapy discussion with patient about course of treatment and patient instructions. education on serotonin syndrome different dxn Bipolar II Lamotrigine lamotrigine has a serious rashes requiring hospitalization and discontinue treatment includingSteven Gordy syndrome rare case of toxic epidermal necrolysis and cache related deaths.Incidence with adjunct of epilepsy treatment 0.8% in 2 to 16 years old and 0.3% in adults, bipolarand other mood disorders incidence 0.8% this initial monotherapy and 0.13% as adjunctivetreatment. Other risk factor may include concomitant use of valproate acid derivative or exceeding initiallamotrigine does or does as clinician recommendation; most life-threatening rash of occurring first 2to 8 week of treatment with isolated cases after prolonged treatment; though benign may occur,discontinue treatment at first sign of rash unless clearly not a drug related; TC treatment may notprevent trash from becoming life-threatening or permanently disabling or disfiguring.Comment reaction include, nausea/vomiting, dizziness/vertigo, visual disturbances, somnolence,ataxia, pruritus/rash, pharyngitis, headache, rhinitis, diarrhea, fever, asthenia, insomnia, tremor,abdominal pain, cough, accidental injury, constipation, dysmenorrhea, incoordination, anxiety,seizures, irritability, anorexia, xerostomia, and photosensitivity.Ser ious reactions include: Rash, severe; Smith Gordy syndrome; toxic epidermal necrosis;injury edema, hypersensitivity reactions. Including fatal, multiple organ failure to safe fatal, rash witheosinophilia systemic symptoms, DIC, neutropenia, leukopenia, thrombocytopenia, pancytopenia,aplasti c anemia, hemolytic anemia, i pancreatitis, hepatic failure, rhabdomyolysis, worsening ofsuicidal ideation, worsening of depression, cleft lip/palate [first trimester use]DO not Change Cosmetic, perfumes or soap for next 4 weeks.The patient was advice to take lamotrigine as prescribed the patient was instructed not to deviatefrom the prescription dosages. Stop lamotrigine is the first sign of rash. Patient was insisted to informoffice if any of the serious side effect develops. discuss therpay options- patient does not want at this time lamotrigine 200 mg tablet - Take 1 tablet(s) every day by oral route at bedtime 2. Generalized anxiety disorder -Clonazepam 1.5 mg PO HS [facility] local pharmacy in [place] no early refills on control substance educated on no control substance prescribed if cannabis or illegal substance or ETOH abuse UDS and random - SSRI/SNRI side effects discussed including but not limited to, gastric upset, nausea, vomiting, diarrhea and/or constipation, weight changes, sexual side effects including loss of libido, increased suicidal thoughts/behaviors in children and young adults, and serotonin syndrome. colonoscopy 2013refused flu vaccinesrefused COVID vaccines Discussed and educated pt regarding benzodiazepines are generally not intended for prolonged use and that use can cause tolerance, dependence, depression, and associated memory issues including dementias (this list is not exhaustive). Benzodiazepine use is generally not recommended concurrently with pain medications and/or other controlled substances due to increased risks of profound sedation, respiratory depression, coma, and even . They are not to be used with any alcohol, as this combination can also be lethal. Patient was provided caution http_s://www.[employer]/cannabis-us t-xczldkyj-yscjjubdm -adhd/ http_s://www.maxwell.or g/Fkusk-Hpapou-Zpmmx ss/Xsjojt-Aadglj-Fyn ditions http_s://psychcentra [employer]/depression/the -cognitive-symptoms- of-depression#treatm ents http__s://www.[facility].n ih.gov/health/topics /mzqyov-otktyd-bulkp ations http__s://www.maxwell.o rg/Qolem-Tdbiyv-Zdsb ess/Treatments/Menta s-Mmdfba-Rwrmsancnlw 3. Tobacco user General health and safety guidelines: Do not smoke. Nicotine and other chemicals in cigarettes and cigars can cause lung damage. Ask your healthcare provider for information if you currently smoke and need help to quit. E-cigarettes or smokeless tobacco still contain nicotine. Talk to your healthcare provider before you use these products. 4. Primary insomnia see sleep provider 5. Long-term drug therapy -control substance agreement Clonazepam UDS 08/21/2024 Tobacco use (ICD-10 - Z72.0) Quitting Tobacco: Care Instructions material was published, Deciding About Using Medicines To Quit Smoking material was published, Learning About Benefits of Quitting Smoking material was published, Stopping Smokeless Tobacco Use: Care Instructions material was published, Stopping Smokeless Tobacco Use: Care Instructions material was published, Learning About Benefits of Quitting Smoking material was published, Deciding About Using Medicines To Quit Smoking material was published, Quitting Tobacco: Care Instructions material was published 1.major depression - with auditory hallucinations- refer to neurologist and r/o migrianes and insomnia cause- psychosis improved and sleep improved with migraine improved on Botox educated and discuss patient stopped Seroquel 25 mg at bedtime - dizziness, and extreme fatigue Lamotrigine 200 mg po hs - [facility] Second generation antipsychotics (SGAs) have metabolic syndrome issues with weight gain, increase in prolactin, increased waist circumference, increased lipids, and increased glucose. Thus routine monitoring of weight, metabolic labs, etc. is indicated. A general rank ordering of antipsychotics that have the greatest to the least risk of metabolic effects is olanzapine, quetiapine, risperidone, ziprasidone, and aripiprazole. However, weight gain can occur with all of these drugs and considerable variability exists among patients receiving the same drug regarding the risk of metabolic effects. Anti-psychotic agents not only increase the risk of metabolic disorder, they also increase the risk of CVA, akathisia, and movement disorders including EPS or tardive dyskinesia (more common with first generation antipsychotics) and more. GENE SIGHT RESULTS REVIEWED and copy given to patient educated on all medications, benefits, side effects and risk, and educated on depression, anxiety, and mood d/o and educated on compliance of medications, metabolic and movement d/o education appointment is, continue therapy discussion with patient about course of treatment and patient instructions. education on serotonin syndrome different dxn Bipolar II Lamotrigine lamotrigine has a serious rashes requiring hospitalization and discontinue treatment includingSteven Gordy syndrome rare case of toxic epidermal necrolysis and cache related deaths.Incidence with adjunct of epilepsy treatment 0.8% in 2 to 16 years old and 0.3% in adults, bipolarand other mood disorders incidence 0.8% this initial monotherapy and 0.13% as adjunctivetreatment. Other risk factor may include concomitant use of valproate acid derivative or exceeding initiallamotrigine does or does as clinician recommendation; most life-threatening rash of occurring first 2to 8 week of treatment with isolated cases after prolonged treatment; though benign may occur,discontinue treatment at first sign of rash unless clearly not a drug related; TC treatment may notprevent trash from becoming life-threatening or permanently disabling or disfiguring.Comment reaction include, nausea/vomiting, dizziness/vertigo, visual disturbances, somnolence,ataxia, pruritus/rash, pharyngitis, headache, rhinitis, diarrhea, fever, asthenia, insomnia, tremor,abdominal pain, cough, accidental injury, constipation, dysmenorrhea, incoordination, anxiety,seizures, irritability, anorexia, xerostomia, and photosensitivity.Ser ious reactions include: Rash, severe; Smith Gordy syndrome; toxic epidermal necrosis;injury edema, hypersensitivity reactions. Including fatal, multiple organ failure to safe fatal, rash witheosinophilia systemic symptoms, DIC, neutropenia, leukopenia, thrombocytopenia, pancytopenia,aplasti c anemia, hemolytic anemia, i pancreatitis, hepatic failure, rhabdomyolysis, worsening ofsuicidal ideation, worsening of depression, cleft lip/palate [first trimester use]DO not Change Cosmetic, perfumes or soap for next 4 weeks.The patient was advice to take lamotrigine as prescribed the patient was instructed not to deviatefrom the prescription dosages. Stop lamotrigine is the first sign of rash. Patient was insisted to informoffice if any of the serious side effect develops. discuss therpay options- patient does not want at this time lamotrigine 200 mg tablet - Take 1 tablet(s) every day by oral route at bedtime 2. Generalized anxiety disorder -Clonazepam 1.5 mg PO [facility] local pharmacy in [place] no early refills on control substance educated on no control substance prescribed if cannabis or illegal substance or ETOH abuse UDS and random - SSRI/SNRI side effects discussed including but not limited to, gastric upset, nausea, vomiting, diarrhea and/or constipation, weight changes, sexual side effects including loss of libido, increased suicidal thoughts/behaviors in children and young adults, and serotonin syndrome. colonoscopy 2013refused flu vaccinesrefused COVID vaccines Discussed and educated pt regarding benzodiazepines are generally not intended for prolonged use and that use can cause tolerance, dependence, depression, and associated memory issues including dementias (this list is not exhaustive). Benzodiazepine use is generally not recommended concurrently with pain medications and/or other controlled substances due to increased risks of profound sedation, respiratory depression, coma, and even . They are not to be used with any alcohol, as this combination can also be lethal. Patient was provided caution http_s://www.[employer]/cannabis-us d-emcnduua-dxyxxavvh -adhd/ http_s://www.maxwell.or g/Fcxuj-Rfiakw-Ajcam ss/Edvyna-Oogavh-Lxh ditions http_s://psychcentra [employer].com/depression/the -cognitive-symptoms- of-depression#treatm ents http__s://www.nimh.n ih.gov/health/topics /yfzhvy-ulpfsb-nnpfi ations http__s://www.maxwell.o rg/Asjwk-Egpnor-Hout ess/Treatments/Menta a-Uzlthj-Rpklmhsbpvr 3. Tobacco user General health and safety guidelines: Do not smoke. Nicotine and other chemicals in cigarettes and cigars can cause lung damage. Ask your healthcare provider for information if you currently smoke and need help to quit. E-cigarettes or smokeless tobacco still contain nicotine. Talk to your healthcare provider before you use these products. 4. Primary insomnia see sleep provider 5. Long-term drug therapy -control substance agreement Clonazepam UDS 02/18/2025 Generalized anxiety disorder (ICD-10 - F41.1) Generalized Anxiety Disorder: Care Instructions material was published, Learning About Anxiety Disorders material was published, Learning About Transcranial Magnetic Stimulation (TMS) material was published 1.major depression - continue depression- medical issues - see specialist colonoscopy 11/24/23 hx auditory hallucinations- refer to neurologist and r/o migrianes and insomnia cause- psychosis improved and sleep improved with migraine improved on Botox educated and discuss Lamotrigine 200 mg po hs - [facility] patient does not want to add or change rx at this time Second generation antipsychotics (SGAs) have metabolic syndrome issues with weight gain, increase in prolactin, increased waist circumference, increased lipids, and increased glucose. Thus routine monitoring of weight, metabolic labs, etc. is indicated. A general rank ordering of antipsychotics that have the greatest to the least risk of metabolic effects is olanzapine, quetiapine, risperidone, ziprasidone, and aripiprazole. However, weight gain can occur with all of these drugs and considerable variability exists among patients receiving the same drug regarding the risk of metabolic effects. Anti-psychotic agents not only increase the risk of metabolic disorder, they also increase the risk of CVA, akathisia, and movement disorders including EPS or tardive dyskinesia (more common with first generation antipsychotics) and more. GENE SIGHT RESULTS REVIEWED and copy given to patient educated on all medications, benefits, side effects and risk, and educated on depression, anxiety, and mood d/o and educated on compliance of medications, metabolic and movement d/o education appointment is, continue therapy discussion with patient about course of treatment and patient instructions. education on serotonin syndrome different dxn Bipolar II Lamotrigine lamotrigine has a serious rashes requiring hospitalization and discontinue treatment includingSteven Gordy syndrome rare case of toxic epidermal necrolysis and cache related deaths.Incidence with adjunct of epilepsy treatment 0.8% in 2 to 16 years old and 0.3% in adults, bipolarand other mood disorders incidence 0.8% this initial monotherapy and 0.13% as adjunctivetreatment. Other risk factor may include concomitant use of valproate acid derivative or exceeding initiallamotrigine does or does as clinician recommendation; most life-threatening rash of occurring first 2to 8 week of treatment with isolated cases after prolonged treatment; though benign may occur,discontinue treatment at first sign of rash unless clearly not a drug related; TC treatment may notprevent trash from becoming life-threatening or permanently disabling or disfiguring.Comment reaction include, nausea/vomiting, dizziness/vertigo, visual disturbances, somnolence,ataxia, pruritus/rash, pharyngitis, headache, rhinitis, diarrhea, fever, asthenia, insomnia, tremor,abdominal pain, cough, accidental injury, constipation, dysmenorrhea, incoordination, anxiety,seizures, irritability, anorexia, xerostomia, and photosensitivity.Ser ious reactions include: Rash, severe; Smith Gordy syndrome; toxic epidermal necrosis;injury edema, hypersensitivity reactions. Including fatal, multiple organ failure to safe fatal, rash witheosinophilia systemic symptoms, DIC, neutropenia, leukopenia, thrombocytopenia, pancytopenia,aplasti c anemia, hemolytic anemia, i pancreatitis, hepatic failure, rhabdomyolysis, worsening ofsuicidal ideation, worsening of depression, cleft lip/palate [first trimester use]DO not Change Cosmetic, perfumes or soap for next 4 weeks.The patient was advice to take lamotrigine as prescribed the patient was instructed not to deviatefrom the prescription dosages. Stop lamotrigine is the first sign of rash. Patient was insisted to informoffice if any of the serious side effect develops. discuss therpay options- patient does not want at this time lamotrigine 200 mg tablet - Take 1 tablet(s) every day by oral route at bedtime see pain management and GI 2. Generalized anxiety disorder -Clonazepam 1.5 mg PO [facility] local pharmacy in [place] no early refills on control substance educated on no control substance prescribed if cannabis or illegal substance or ETOH abuse UDS and random - SSRI/SNRI side effects discussed including but not limited to, gastric upset, nausea, vomiting, diarrhea and/or constipation, weight changes, sexual side effects including loss of libido, increased suicidal thoughts/behaviors in children and young adults, and serotonin syndrome. colonoscopy 2013refused flu vaccinesrefused COVID vaccines Discussed and educated pt regarding benzodiazepines are generally not intended for prolonged use and that use can cause tolerance, dependence, depression, and associated memory issues including dementias (this list is not exhaustive). Benzodiazepine use is generally not recommended concurrently with pain medications and/or other controlled substances due to increased risks of profound sedation, respiratory depression, coma, and even . They are not to be used with any alcohol, as this combination can also be lethal. Patient was provided caution http_s://www.[employer]/cannabis-us k-idfjeexr-lhcustmfx -adhd/ http_s://www.maxwell.or g/Brfkm-Kkbnll-Mmopv ss/Yjxrwn-Ndgvmk-Mje ditions http_s://psychcentra [employer]/depression/the -cognitive-symptoms- of-depression#treatm ents http__s://www.[facility].n ih.gov/health/topics /ejvaee-tyvrhk-ridfo ations http__s://www.maxwell.o rg/Qdkqm-Psozme-Nhwa ess/Treatments/Menta m-Xzxwtt-Xflxcxbxhhd 3. Tobacco user General health and safety guidelines: Do not smoke. Nicotine and other chemicals in cigarettes and cigars can cause lung damage. Ask your healthcare provider for information if you currently smoke and need help to quit. E-cigarettes or smokeless tobacco still contain nicotine. Talk to your healthcare provider before you use these products. Smoking Education Do not smoke. Nicotine and other chemicals in cigarettes and cigars can cause lung damage. Ask your healthcare provider for information if you currently smoke and need help to quit. E-cigarettes or smokeless tobacco still contain nicotine. Talk to your healthcare provider before you use these products. education on decrease to stopping nicotine products and stop smoking hotline given 38-Quit - Yes [place] Tobacco Quitline Call a Smoking Quitline The National [employer] Smoking Quitline, (8-844-98C-QUIT) Smokefree.gov, which connects you with your State's Quitline, (0-602-FYOVFCP) Veterans Smoking Quitline, (4-267-DZKQMEW) 4. Primary insomnia see sleep provider 5. Long-term drug therapy -control substance agreement Clonazepam UDS 05/20/2025 Encounter for screening for cardiovascular disorders (ICD-10 - Z13.6) 1.major depression - continue depression- discuss and educated on medications options- reviewed [facility] Add Vyalar 1.5 mg every other day for depression and auditory hallucinations- samples given patient also seeing neurosurgeon for migraines and headaches medical issues - see specialists colonoscopy 11/24/23 hx auditory hallucinations- refer to neurologist and r/o migrianes and insomnia cause- psychosis auditory and sleep issues and with migraine hx on Botox educated and discuss Lamotrigine 200 mg po hs - [facility] Second generation antipsychotics (SGAs) have metabolic syndrome issues with weight gain, increase in prolactin, increased waist circumference, increased lipids, and increased glucose. Thus routine monitoring of weight, metabolic labs, etc. is indicated. A general rank ordering of antipsychotics that have the greatest to the least risk of metabolic effects is olanzapine, quetiapine, risperidone, ziprasidone, and aripiprazole. However, weight gain can occur with all of these drugs and considerable variability exists among patients receiving the same drug regarding the risk of metabolic effects. Anti-psychotic agents not only increase the risk of metabolic disorder, they also increase the risk of CVA, akathisia, and movement disorders including EPS or tardive dyskinesia (more common with first generation antipsychotics) and more. GENE SIGHT RESULTS REVIEWED educated on all medications, benefits, side effects and risk, and educated on depression, anxiety, and mood d/o and educated on compliance of medications, metabolic and movement d/o education appointment is, continue therapy discussion with patient about course of treatment and patient instructions. education on serotonin syndrome different dxn Bipolar II Lamotrigine lamotrigine has a serious rashes requiring hospitalization and discontinue treatment includingSteven Gordy syndrome rare case of toxic epidermal necrolysis and cache related deaths.Incidence with adjunct of epilepsy treatment 0.8% in 2 to 16 years old and 0.3% in adults, bipolarand other mood disorders incidence 0.8% this initial monotherapy and 0.13% as adjunctivetreatment. Other risk factor may include concomitant use of valproate acid derivative or exceeding initiallamotrigine does or does as clinician recommendation; most life-threatening rash of occurring first 2to 8 week of treatment with isolated cases after prolonged treatment; though benign may occur,discontinue treatment at first sign of rash unless clearly not a drug related; TC treatment may notprevent trash from becoming life-threatening or permanently disabling or disfiguring.Comment reaction include, nausea/vomiting, dizziness/vertigo, visual disturbances, somnolence,ataxia, pruritus/rash, pharyngitis, headache, rhinitis, diarrhea, fever, asthenia, insomnia, tremor,abdominal pain, cough, accidental injury, constipation, dysmenorrhea, incoordination, anxiety,seizures, irritability, anorexia, xerostomia, and photosensitivity.Ser ious reactions include: Rash, severe; Smith Gordy syndrome; toxic epidermal necrosis;injury edema, hypersensitivity reactions. Including fatal, multiple organ failure to safe fatal, rash witheosinophilia systemic symptoms, DIC, neutropenia, leukopenia, thrombocytopenia, pancytopenia,aplasti c anemia, hemolytic anemia, i pancreatitis, hepatic failure, rhabdomyolysis, worsening ofsuicidal ideation, worsening of depression, cleft lip/palate [first trimester use]DO not Change Cosmetic, perfumes or soap for next 4 weeks.The patient was advice to take lamotrigine as prescribed the patient was instructed not to deviatefrom the prescription dosages. Stop lamotrigine is the first sign of rash. Patient was insisted to informoffice if any of the serious side effect develops. discuss therpay options- patient does not want at this time lamotrigine 200 mg tablet - Take 1 tablet(s) every day by oral route at bedtime see pain management and GI 2. Generalized anxiety disorder - change Clonazepam 0.5 mg three times a day [facility] local pharmacy in [place] no early refills on control substance educated on no control substance prescribed if cannabis or illegal substance or ETOH abuse UDS and random - SSRI/SNRI side effects discussed including but not limited to, gastric upset, nausea, vomiting, diarrhea and/or constipation, weight changes, sexual side effects including loss of libido, increased suicidal thoughts/behaviors in children and young adults, and serotonin syndrome. colonoscopy 2013refused flu vaccinesrefused COVID vaccines Discussed and educated pt regarding benzodiazepines are generally not intended for prolonged use and that use can cause tolerance, dependence, depression, and associated memory issues including dementias (this list is not exhaustive). Benzodiazepine use is generally not recommended concurrently with pain medications and/or other controlled substances due to increased risks of profound sedation, respiratory depression, coma, and even . They are not to be used with any alcohol, as this combination can also be lethal. Patient was provided caution http_s://www.[employer].com/cannabis-us g-jtsgktqu-ppwyjbyjq -adhd/ http_s://www.maxwell.or g/Gqkfu-Nfqfqk-Qqpjd ss/Nftxqc-Sxfntr-Slx ditions http_s://psychcentLiveStubcom/depression/the -cognitive-symptoms- of-depression#treatm ents http__s://www.nimh.n ih.gov/health/topics /nreozx-eibviv-dpwlg ations http__s://www.maxwell.o rg/Pdgfm-Pdtenz-Albn ess/Treatments/Menta r-Vueghg-Wgkckkxvegj 3. Tobacco user General health and safety guidelines: Do not smoke. Nicotine and other chemicals in cigarettes and cigars can cause lung damage. Ask your healthcare provider for information if you currently smoke and need help to quit. E-cigarettes or smokeless tobacco still contain nicotine. Talk to your healthcare provider before you use these products. Smoking Education Do not smoke. Nicotine and other chemicals in cigarettes and cigars can cause lung damage. Ask your healthcare provider for information if you currently smoke and need help to quit. E-cigarettes or smokeless tobacco still contain nicotine. Talk to your healthcare provider before you use these products. education on decrease to stopping nicotine products and stop smoking hotline given -Quit - Yes [place] Tobacco Quitline Call a Smoking Quitline The [employer] Smoking Quitline, (3-621-25W-QUIT) Smokefree.gov, which connects you with your State's Quitline, (0-688-YZSOJPN) [facility] Smoking Quitline, (3-307-SKTHSNW) 4. Primary insomnia see sleep provider 5. Long-term drug therapy -control substance agreement Clonazepam UDS 06/03/2025 Generalized anxiety disorder (ICD-10 - F41.1) Generalized Anxiety Disorder: Care Instructions material was published, Learning About Anxiety Disorders material was published, Learning About Transcranial Magnetic Stimulation (TMS) material was published 1.major depression - continue depression- discuss and educated on medications options- reviewed Gene Sight Increase Vyalar 1.5 mg day for depression and auditory and olfactory hallucinations- samples given patient also seeing neurosurgeon for migraines and headaches MRI brain- hx 2 years ago and neurosurgeon scheduled 07/01 will discuss medical issues - see specialists colonoscopy 11/24/23 hx auditory hallucinations- refer to neurologist and r/o migrianes and insomnia cause- psychosis auditory and olfactory and sleep issues and with migraine hx on Botox educated and discuss Lamotrigine 200 mg po hs - [facility] refer to therapy Second generation antipsychotics (SGAs) have metabolic syndrome issues with weight gain, increase in prolactin, increased waist circumference, increased lipids, and increased glucose. Thus routine monitoring of weight, metabolic labs, etc. is indicated. A general rank ordering of antipsychotics that have the greatest to the least risk of metabolic effects is olanzapine, quetiapine, risperidone, ziprasidone, and aripiprazole. However, weight gain can occur with all of these drugs and considerable variability exists among patients receiving the same drug regarding the risk of metabolic effects. Anti-psychotic agents not only increase the risk of metabolic disorder, they also increase the risk of CVA, akathisia, and movement disorders including EPS or tardive dyskinesia (more common with first generation antipsychotics) and more. GENE SIGHT RESULTS REVIEWED educated on all medications, benefits, side effects and risk, and educated on depression, anxiety, and mood d/o and educated on compliance of medications, metabolic and movement d/o education appointment is, continue therapy discussion with patient about course of treatment and patient instructions. education on serotonin syndrome different dxn Bipolar II Lamotrigine lamotrigine has a serious rashes requiring hospitalization and discontinue treatment includingSteven Gordy syndrome rare case of toxic epidermal necrolysis and cache related deaths.Incidence with adjunct of epilepsy treatment 0.8% in 2 to 16 years old and 0.3% in adults, bipolarand other mood disorders incidence 0.8% this initial monotherapy and 0.13% as adjunctivetreatment. Other risk factor may include concomitant use of valproate acid derivative or exceeding initiallamotrigine does or does as clinician recommendation; most life-threatening rash of occurring first 2to 8 week of treatment with isolated cases after prolonged treatment; though benign may occur,discontinue treatment at first sign of rash unless clearly not a drug related; TC treatment may notprevent trash from becoming life-threatening or permanently disabling or disfiguring.Comment reaction include, nausea/vomiting, dizziness/vertigo, visual disturbances, somnolence,ataxia, pruritus/rash, pharyngitis, headache, rhinitis, diarrhea, fever, asthenia, insomnia, tremor,abdominal pain, cough, accidental injury, constipation, dysmenorrhea, incoordination, anxiety,seizures, irritability, anorexia, xerostomia, and photosensitivity.Ser ious reactions include: Rash, severe; Smith Gordy syndrome; toxic epidermal necrosis;injury edema, hypersensitivity reactions. Including fatal, multiple organ failure to safe fatal, rash witheosinophilia systemic symptoms, DIC, neutropenia, leukopenia, thrombocytopenia, pancytopenia,aplasti c anemia, hemolytic anemia, i pancreatitis, hepatic failure, rhabdomyolysis, worsening ofsuicidal ideation, worsening of depression, cleft lip/palate [first trimester use]DO not Change Cosmetic, perfumes or soap for next 4 weeks.The patient was advice to take lamotrigine as prescribed the patient was instructed not to deviatefrom the prescription dosages. Stop lamotrigine is the first sign of rash. Patient was insisted to informoffice if any of the serious side effect develops. discuss therpay options- patient does not want at this time lamotrigine 200 mg tablet - Take 1 tablet(s) every day by oral route at bedtime see pain management and GI 2. Generalized anxiety disorder - increase Clonazepam 0.5 mg four times a day [facility] local pharmacy in [place] no early refills on control substance educated on no control substance prescribed if cannabis or illegal substance or ETOH abuse UDS and random - SSRI/SNRI side effects discussed including but not limited to, gastric upset, nausea, vomiting, diarrhea and/or constipation, weight changes, sexual side effects including loss of libido, increased suicidal thoughts/behaviors in children and young adults, and serotonin syndrome. colonoscopy 2013refused flu vaccinesrefused COVID vaccines Discussed and educated pt regarding benzodiazepines are generally not intended for prolonged use and that use can cause tolerance, dependence, depression, and associated memory issues including dementias (this list is not exhaustive). Benzodiazepine use is generally not recommended concurrently with pain medications and/or other controlled substances due to increased risks of profound sedation, respiratory depression, coma, and even . They are not to be used with any alcohol, as this combination can also be lethal. Patient was provided caution http_s://www.CollabFinder.com/cannabis-us z-skwmmjeu-duowrrdzx -adhd/ http_s://www.maxwell.or g/Frqvg-Caxbhn-Quscf ss/Zhctaz-Aaclxa-Obs ditions http_s://psychcentra Keukey.com/depression/the -cognitive-symptoms- of-depression#treatm ents http__s://www.nimh.n ih.gov/health/topics /vbwnbb-anavyj-yjbrr ations http__s://www.maxwell.o rg/Moyty-Hruuzp-Fmzt ess/Treatments/Menta t-Pvepky-Oflmeytqmzs 3. Tobacco user General health and safety guidelines: Do not smoke. Nicotine and other chemicals in cigarettes and cigars can cause lung damage. Ask your healthcare provider for information if you currently smoke and need help to quit. E-cigarettes or smokeless tobacco still contain nicotine. Talk to your healthcare provider before you use these products. Smoking Education Do not smoke. Nicotine and other chemicals in cigarettes and cigars can cause lung damage. Ask your healthcare provider for information if you currently smoke and need help to quit. E-cigarettes or smokeless tobacco still contain nicotine. Talk to your healthcare provider before you use these products. education on decrease to stopping nicotine products and stop smoking hotline given -Quit - Yes [place] Tobacco Quitline Call a Smoking Quitline The [employer] Smoking Quitline, (9-047-50B-QUIT) Smokefree.gov, which connects you with your State's Quitline, (4-383-TUKINFA) Veterans Smoking Quitline, (6-839-IMUNEHD) 4. Primary insomnia see sleep provider 5. Long-term drug therapy -control substance agreement Clonazepam UDS 06/24/2025 Tobacco use (ICD-10 - Z72.0) Quitting Tobacco: Care Instructions material was published, Deciding About Using Medicines To Quit Smoking material was published, Learning About Benefits of Quitting Smoking material was published, Stopping Smokeless Tobacco Use: Care Instructions material was published, Stopping Smokeless Tobacco Use: Care Instructions material was published, Learning About Benefits of Quitting Smoking material was published, Deciding About Using Medicines To Quit Smoking material was published, Quitting Tobacco: Care Instructions material was published 1.major depression - continue depression- discuss and educated on medications options- reviewed [facility] S[facility] patient stopped Vyalar 1.5 mg day pateint having chornic insomania and may be trigger auditory and olfactory hallucinations- has a referral to sleep study per PCP patient also seeing neurosurgeon for migraines and headaches MRI brain- hx 2 years ago and neurosurgeon scheduled 07/01 and nerve conduction test scheduled 07/01 medical issues - see specialists colonoscopy 11/24/23 hx auditory hallucinations- refer to neurologist and r/o migrianes and insomnia cause- psychosis auditory and olfactory and sleep issues and with migraine hx on Botox educated and discuss presently taking Lamotrigine 200 mg po hs - pateint would like to taper off rx slowly- Decrease Lamotrigine 150 mg daily - for 30 days discuss and educated monitoring depression and mood and tapering process pateint would like to try different medication options after off rx refer to therapy Second generation antipsychotics (SGAs) have metabolic syndrome issues with weight gain, increase in prolactin, increased waist circumference, increased lipids, and increased glucose. Thus routine monitoring of weight, metabolic labs, etc. is indicated. A general rank ordering of antipsychotics that have the greatest to the least risk of metabolic effects is olanzapine, quetiapine, risperidone, ziprasidone, and aripiprazole. However, weight gain can occur with all of these drugs and considerable variability exists among patients receiving the same drug regarding the risk of metabolic effects. Anti-psychotic agents not only increase the risk of metabolic disorder, they also increase the risk of CVA, akathisia, and movement disorders including EPS or tardive dyskinesia (more common with first generation antipsychotics) and more. GENE SIGHT RESULTS REVIEWED educated on all medications, benefits, side effects and risk, and educated on depression, anxiety, and mood d/o and educated on compliance of medications, metabolic and movement d/o education appointment is, continue therapy discussion with patient about course of treatment and patient instructions. education on serotonin syndrome different dxn Bipolar II Lamotrigine lamotrigine has a serious rashes requiring hospitalization and discontinue treatment includingSteven Gordy syndrome rare case of toxic epidermal necrolysis and cache related deaths.Incidence with adjunct of epilepsy treatment 0.8% in 2 to 16 years old and 0.3% in adults, bipolarand other mood disorders incidence 0.8% this initial monotherapy and 0.13% as adjunctivetreatment. Other risk factor may include concomitant use of valproate acid derivative or exceeding initiallamotrigine does or does as clinician recommendation; most life-threatening rash of occurring first 2to 8 week of treatment with isolated cases after prolonged treatment; though benign may occur,discontinue treatment at first sign of rash unless clearly not a drug related; TC treatment may notprevent trash from becoming life-threatening or permanently disabling or disfiguring.Comment reaction include, nausea/vomiting, dizziness/vertigo, visual disturbances, somnolence,ataxia, pruritus/rash, pharyngitis, headache, rhinitis, diarrhea, fever, asthenia, insomnia, tremor,abdominal pain, cough, accidental injury, constipation, dysmenorrhea, incoordination, anxiety,seizures, irritability, anorexia, xerostomia, and photosensitivity.Ser ious reactions include: Rash, severe; Smith Gordy syndrome; toxic epidermal necrosis;injury edema, hypersensitivity reactions. Including fatal, multiple organ failure to safe fatal, rash witheosinophilia systemic symptoms, DIC, neutropenia, leukopenia, thrombocytopenia, pancytopenia,aplasti c anemia, hemolytic anemia, i pancreatitis, hepatic failure, rhabdomyolysis, worsening ofsuicidal ideation, worsening of depression, cleft lip/palate [first trimester use]DO not Change Cosmetic, perfumes or soap for next 4 weeks.The patient was advice to take lamotrigine as prescribed the patient was instructed not to deviatefrom the prescription dosages. Stop lamotrigine is the first sign of rash. Patient was insisted to informoffice if any of the serious side effect develops. discuss therpay options- patient does not want at this time see pain management and GI 2. Generalized anxiety disorder - decrease Clonazepam 0.5 mg three times a day- patient would like to slowly decrease to stop rx over time - no refill needed today educated and discuss GDR and monitor anxiety and panic [facility] local pharmacy in [place] no early refills on control substance educated on no control substance prescribed if cannabis or illegal substance or ETOH abuse UDS and random - SSRI/SNRI side effects discussed including but not limited to, gastric upset, nausea, vomiting, diarrhea and/or constipation, weight changes, sexual side effects including loss of libido, increased suicidal thoughts/behaviors in children and young adults, and serotonin syndrome. colonoscopy 2013refused flu vaccinesrefused COVID vaccines Discussed and educated pt regarding benzodiazepines are generally not intended for prolonged use and that use can cause tolerance, dependence, depression, and associated memory issues including dementias (this list is not exhaustive). Benzodiazepine use is generally not recommended concurrently with pain medications and/or other controlled substances due to increased risks of profound sedation, respiratory depression, coma, and even . They are not to be used with any alcohol, as this combination can also be lethal. Patient was provided caution http_s://www.[employer]/cannabis-us b-vfnkdnwp-ximvduwee -adhd/ http_s://www.maxwell.or g/Qtswo-Rzbsnq-Zwaqn ss/Kguolm-Lkwdqd-Bhf ditions http_s://psychcentNeighbortree.com/depression/the -cognitive-symptoms- of-depression#treatm ents http__s://www.[facility].n ih.gov/health/topics /vvgmuh-jjtsuk-zmjpi ations http__s://www.maxwell.o rg/Lglcx-Hgpqxj-Wmng ess/Treatments/Menta x-Zceuxk-Krxzkrpakjr 3. Tobacco user General health and safety guidelines: Do not smoke. Nicotine and other chemicals in cigarettes and cigars can cause lung damage. Ask your healthcare provider for information if you currently smoke and need help to quit. E-cigarettes or smokeless tobacco still contain nicotine. Talk to your healthcare provider before you use these products. Smoking Education Do not smoke. Nicotine and other chemicals in cigarettes and cigars can cause lung damage. Ask your healthcare provider for information if you currently smoke and need help to quit. E-cigarettes or smokeless tobacco still contain nicotine. Talk to your healthcare provider before you use these products. education on decrease to stopping nicotine products and stop smoking hotline given 90-Quit - Yes [place] Tobacco Quitline Call a Smoking Quitline The [employer] Smoking Quitline, (0-147-62B-QUIT) Smokefree.gov, which connects you with your State's Quitline, (6-505-PZJNLSI) Veterans Smoking Quitline, (5-978-ANBFROG) 4. Primary insomnia see sleep provider 5. Long-term drug therapy -control substance agreement Clonazepam UDS 07/22/2025 Tobacco use (ICD-10 - Z72.0) Quitting Tobacco: Care Instructions material was published, Deciding About Using Medicines To Quit Smoking material was published, Learning About Benefits of Quitting Smoking material was published, Stopping Smokeless Tobacco Use: Care Instructions material was published, Stopping Smokeless Tobacco Use: Care Instructions material was published, Learning About Benefits of Quitting Smoking material was published, Deciding About Using Medicines To Quit Smoking material was published, Quitting Tobacco: Care Instructions material was published 1.major depression - continue depression- discuss and educated on medications options- reviewed Gene Sight pateint having chornic insomania and may be trigger auditory and olfactory hallucinations- has a referral to sleep study per PCP - scheduled - [facility] patient also seeing neurosurgeon for migraines and headaches MRI brain- hx 2 years ago and neurosurgeon scheduled 07/01 and nerve conduction test scheduled 07/01 medical issues - see specialists colonoscopy 11/24/23 hx auditory hallucinations- refer to neurologist and r/o migrianes and insomnia cause- psychosis auditory and olfactory and sleep issues and with migraine hx on Botox educated and discuss presently taking Lamotrigine 150 mg po hs - pateint would like to taper off rx slowly- Decrease Lamotrigine 100 mg daily - for 30 days- patient has rx at home to use no refill needed discuss and educated monitoring depression and mood and tapering process pateint would like to try different medication options after off rx refer to therapy Second generation antipsychotics (SGAs) have metabolic syndrome issues with weight gain, increase in prolactin, increased waist circumference, increased lipids, and increased glucose. Thus routine monitoring of weight, metabolic labs, etc. is indicated. A general rank ordering of antipsychotics that have the greatest to the least risk of metabolic effects is olanzapine, quetiapine, risperidone, ziprasidone, and aripiprazole. However, weight gain can occur with all of these drugs and considerable variability exists among patients receiving the same drug regarding the risk of metabolic effects. Anti-psychotic agents not only increase the risk of metabolic disorder, they also increase the risk of CVA, akathisia, and movement disorders including EPS or tardive dyskinesia (more common with first generation antipsychotics) and more. GENE SIGHT RESULTS REVIEWED educated on all medications, benefits, side effects and risk, and educated on depression, anxiety, and mood d/o and educated on compliance of medications, metabolic and movement d/o education appointment is, continue therapy discussion with patient about course of treatment and patient instructions. education on serotonin syndrome different dxn Bipolar II Lamotrigine lamotrigine has a serious rashes requiring hospitalization and discontinue treatment includingSteven Gordy syndrome rare case of toxic epidermal necrolysis and cache related deaths.Incidence with adjunct of epilepsy treatment 0.8% in 2 to 16 years old and 0.3% in adults, bipolarand other mood disorders incidence 0.8% this initial monotherapy and 0.13% as adjunctivetreatment. Other risk factor may include concomitant use of valproate acid derivative or exceeding initiallamotrigine does or does as clinician recommendation; most life-threatening rash of occurring first 2to 8 week of treatment with isolated cases after prolonged treatment; though benign may occur,discontinue treatment at first sign of rash unless clearly not a drug related; TC treatment may notprevent trash from becoming life-threatening or permanently disabling or disfiguring.Comment reaction include, nausea/vomiting, dizziness/vertigo, visual disturbances, somnolence,ataxia, pruritus/rash, pharyngitis, headache, rhinitis, diarrhea, fever, asthenia, insomnia, tremor,abdominal pain, cough, accidental injury, constipation, dysmenorrhea, incoordination, anxiety,seizures, irritability, anorexia, xerostomia, and photosensitivity.Ser ious reactions include: Rash, severe; Smith Gordy syndrome; toxic epidermal necrosis;injury edema, hypersensitivity reactions. Including fatal, multiple organ failure to safe fatal, rash witheosinophilia systemic symptoms, DIC, neutropenia, leukopenia, thrombocytopenia, pancytopenia,aplasti c anemia, hemolytic anemia, i pancreatitis, hepatic failure, rhabdomyolysis, worsening ofsuicidal ideation, worsening of depression, cleft lip/palate [first trimester use]DO not Change Cosmetic, perfumes or soap for next 4 weeks.The patient was advice to take lamotrigine as prescribed the patient was instructed not to deviatefrom the prescription dosages. Stop lamotrigine is the first sign of rash. Patient was insisted to informoffice if any of the serious side effect develops. discuss therpay options- patient does not want at this time see pain management and GI 2. Generalized anxiety disorder - decrease Clonazepam 0.5 mg twicee a day- patient would like to slowly decrease to stop rx over time - no refill needed today educated and discuss GDR and monitor anxiety and panic [facility] local pharmacy in [place] no early refills on control substance educated on no control substance prescribed if cannabis or illegal substance or ETOH abuse UDS and random - SSRI/SNRI side effects discussed including but not limited to, gastric upset, nausea, vomiting, diarrhea and/or constipation, weight changes, sexual side effects including loss of libido, increased suicidal thoughts/behaviors in children and young adults, and serotonin syndrome. colonoscopy 2013refused flu vaccinesrefused COVID vaccines Discussed and educated pt regarding benzodiazepines are generally not intended for prolonged use and that use can cause tolerance, dependence, depression, and associated memory issues including dementias (this list is not exhaustive). Benzodiazepine use is generally not recommended concurrently with pain medications and/or other controlled substances due to increased risks of profound sedation, respiratory depression, coma, and even . They are not to be used with any alcohol, as this combination can also be lethal. Patient was provided caution http_s://www.[employer]/cannabis-us s-ozctkeyv-hihoocerj -adhd/ http_s://www.maxwell.or g/Qidpd-Wvtagf-Zhhyu ss/Yerdds-Ipgojz-Ndm ditions http_s://psychiQVCloud/depression/the -cognitive-symptoms- of-depression#treatm ents http__s://www.nimh.n ih.gov/health/topics /jxrmfj-zlmerz-csvdm ations http__s://www.maxwell.o rg/Xqocw-Ujulqr-Corb ess/Treatments/Menta k-Whinln-Pwwquplsfrn 3. Tobacco user General health and safety guidelines: Do not smoke. Nicotine and other chemicals in cigarettes and cigars can cause lung damage. Ask your healthcare provider for information if you currently smoke and need help to quit. E-cigarettes or smokeless tobacco still contain nicotine. Talk to your healthcare provider before you use these products. Smoking Education Do not smoke. Nicotine and other chemicals in cigarettes and cigars can cause lung damage. Ask your healthcare provider for information if you currently smoke and need help to quit. E-cigarettes or smokeless tobacco still contain nicotine. Talk to your healthcare provider before you use these products. education on decrease to stopping nicotine products and stop smoking hotline given -Quit - Yes [place] Tobacco Quitline Call a Smoking Quitline The [employer] Smoking Quitline, (8-449-12Y-QUIT) Smokefree.gov, which connects you with your State's Quitline, (5-886-JMXQMHG) Veterans Smoking Quitline, (7-988-MZZGCPR) 4. Primary insomnia see sleep provider- scheduled [facility] 5. Long-term drug therapy -control substance agreement Clonazepam UDS 06/03/2025 Primary insomnia (ICD-10 - F51.01) Insomnia: Care Instructions material was published, Learning About Sleeping Well material was published, Insomnia: Care Instructions material was published, Learning About Sleeping Well material was published 1.major depression - continue depression- discuss and educated on medications options- reviewed [facility] Increase Vyalar 1.5 mg day for depression and auditory and olfactory hallucinations- samples given patient also seeing neurosurgeon for migraines and headaches MRI brain- hx 2 years ago and neurosurgeon scheduled 07/01 will discuss medical issues - see specialists colonoscopy 11/24/23 hx auditory hallucinations- refer to neurologist and r/o migrianes and insomnia cause- psychosis auditory and olfactory and sleep issues and with migraine hx on Botox educated and discuss Lamotrigine 200 mg po hs - [facility] refer to therapy Second generation antipsychotics (SGAs) have metabolic syndrome issues with weight gain, increase in prolactin, increased waist circumference, increased lipids, and increased glucose. Thus routine monitoring of weight, metabolic labs, etc. is indicated. A general rank ordering of antipsychotics that have the greatest to the least risk of metabolic effects is olanzapine, quetiapine, risperidone, ziprasidone, and aripiprazole. However, weight gain can occur with all of these drugs and considerable variability exists among patients receiving the same drug regarding the risk of metabolic effects. Anti-psychotic agents not only increase the risk of metabolic disorder, they also increase the risk of CVA, akathisia, and movement disorders including EPS or tardive dyskinesia (more common with first generation antipsychotics) and more. GENE SIGHT RESULTS REVIEWED educated on all medications, benefits, side effects and risk, and educated on depression, anxiety, and mood d/o and educated on compliance of medications, metabolic and movement d/o education appointment is, continue therapy discussion with patient about course of treatment and patient instructions. education on serotonin syndrome different dxn Bipolar II Lamotrigine lamotrigine has a serious rashes requiring hospitalization and discontinue treatment includingSteven Gordy syndrome rare case of toxic epidermal necrolysis and cache related deaths.Incidence with adjunct of epilepsy treatment 0.8% in 2 to 16 years old and 0.3% in adults, bipolarand other mood disorders incidence 0.8% this initial monotherapy and 0.13% as adjunctivetreatment. Other risk factor may include concomitant use of valproate acid derivative or exceeding initiallamotrigine does or does as clinician recommendation; most life-threatening rash of occurring first 2to 8 week of treatment with isolated cases after prolonged treatment; though benign may occur,discontinue treatment at first sign of rash unless clearly not a drug related; TC treatment may notprevent trash from becoming life-threatening or permanently disabling or disfiguring.Comment reaction include, nausea/vomiting, dizziness/vertigo, visual disturbances, somnolence,ataxia, pruritus/rash, pharyngitis, headache, rhinitis, diarrhea, fever, asthenia, insomnia, tremor,abdominal pain, cough, accidental injury, constipation, dysmenorrhea, incoordination, anxiety,seizures, irritability, anorexia, xerostomia, and photosensitivity.Ser ious reactions include: Rash, severe; Smith Gordy syndrome; toxic epidermal necrosis;injury edema, hypersensitivity reactions. Including fatal, multiple organ failure to safe fatal, rash witheosinophilia systemic symptoms, DIC, neutropenia, leukopenia, thrombocytopenia, pancytopenia,aplasti c anemia, hemolytic anemia, i pancreatitis, hepatic failure, rhabdomyolysis, worsening ofsuicidal ideation, worsening of depression, cleft lip/palate [first trimester use]DO not Change Cosmetic, perfumes or soap for next 4 weeks.The patient was advice to take lamotrigine as prescribed the patient was instructed not to deviatefrom the prescription dosages. Stop lamotrigine is the first sign of rash. Patient was insisted to informoffice if any of the serious side effect develops. discuss therpay options- patient does not want at this time lamotrigine 200 mg tablet - Take 1 tablet(s) every day by oral route at bedtime see pain management and GI 2. Generalized anxiety disorder - increase Clonazepam 0.5 mg four times a day [facility] local pharmacy in [place] no early refills on control substance educated on no control substance prescribed if cannabis or illegal substance or ETOH abuse UDS and random - SSRI/SNRI side effects discussed including but not limited to, gastric upset, nausea, vomiting, diarrhea and/or constipation, weight changes, sexual side effects including loss of libido, increased suicidal thoughts/behaviors in children and young adults, and serotonin syndrome. colonoscopy 2013refused flu vaccinesrefused COVID vaccines Discussed and educated pt regarding benzodiazepines are generally not intended for prolonged use and that use can cause tolerance, dependence, depression, and associated memory issues including dementias (this list is not exhaustive). Benzodiazepine use is generally not recommended concurrently with pain medications and/or other controlled substances due to increased risks of profound sedation, respiratory depression, coma, and even . They are not to be used with any alcohol, as this combination can also be lethal. Patient was provided caution http_s://www.[employer]/cannabis-us b-icluqnfy-wlurqimys -adhd/ http_s://www.maxwell.or g/Swjed-Jraqza-Dgmrb ss/Vvffyc-Tnermi-Wju ditions http_s://psychcentra [employer]com/depression/the -cognitive-symptoms- of-depression#treatm ents http__s://www.nimh.n ih.gov/health/topics /hefsvb-cfmfgo-ydxhs ations http__s://www.maxwell.o rg/Tlrlz-Lvgjwm-Wwyz ess/Treatments/Menta l-Qmiuue-Hgtniaavsih 3. Tobacco user General health and safety guidelines: Do not smoke. Nicotine and other chemicals in cigarettes and cigars can cause lung damage. Ask your healthcare provider for information if you currently smoke and need help to quit. E-cigarettes or smokeless tobacco still contain nicotine. Talk to your healthcare provider before you use these products. Smoking Education Do not smoke. Nicotine and other chemicals in cigarettes and cigars can cause lung damage. Ask your healthcare provider for information if you currently smoke and need help to quit. E-cigarettes or smokeless tobacco still contain nicotine. Talk to your healthcare provider before you use these products. education on decrease to stopping nicotine products and stop smoking hotline given -Quit - Yes [place] Tobacco Quitline Call a Smoking Quitline The [employer] Smoking Quitline, (6-913-11P-QUIT) Smokefree.gov, which connects you with your State's Quitline, (4-434-XYFZSTU) Veterans Smoking Quitline, (3-694-TFVZPCT) 4. Primary insomnia see sleep provider 5. Long-term drug therapy -control substance agreement Clonazepam UDS 02/18/2025 Primary insomnia (ICD-10 - F51.01) Insomnia: Care Instructions material was published, Learning About Sleeping Well material was published, Insomnia: Care Instructions material was published, Learning About Sleeping Well material was published 1.major depression - continue depression- medical issues - see specialist colonoscopy 11/24/23 hx auditory hallucinations- refer to neurologist and r/o migrianes and insomnia cause- psychosis improved and sleep improved with migraine improved on Botox educated and discuss Lamotrigine 200 mg po hs - [facility] patient does not want to add or change rx at this time Second generation antipsychotics (SGAs) have metabolic syndrome issues with weight gain, increase in prolactin, increased waist circumference, increased lipids, and increased glucose. Thus routine monitoring of weight, metabolic labs, etc. is indicated. A general rank ordering of antipsychotics that have the greatest to the least risk of metabolic effects is olanzapine, quetiapine, risperidone, ziprasidone, and aripiprazole. However, weight gain can occur with all of these drugs and considerable variability exists among patients receiving the same drug regarding the risk of metabolic effects. Anti-psychotic agents not only increase the risk of metabolic disorder, they also increase the risk of CVA, akathisia, and movement disorders including EPS or tardive dyskinesia (more common with first generation antipsychotics) and more. GENE SIGHT RESULTS REVIEWED and copy given to patient educated on all medications, benefits, side effects and risk, and educated on depression, anxiety, and mood d/o and educated on compliance of medications, metabolic and movement d/o education appointment is, continue therapy discussion with patient about course of treatment and patient instructions. education on serotonin syndrome different dxn Bipolar II Lamotrigine lamotrigine has a serious rashes requiring hospitalization and discontinue treatment includingSteven Gordy syndrome rare case of toxic epidermal necrolysis and cache related deaths.Incidence with adjunct of epilepsy treatment 0.8% in 2 to 16 years old and 0.3% in adults, bipolarand other mood disorders incidence 0.8% this initial monotherapy and 0.13% as adjunctivetreatment. Other risk factor may include concomitant use of valproate acid derivative or exceeding initiallamotrigine does or does as clinician recommendation; most life-threatening rash of occurring first 2to 8 week of treatment with isolated cases after prolonged treatment; though benign may occur,discontinue treatment at first sign of rash unless clearly not a drug related; TC treatment may notprevent trash from becoming life-threatening or permanently disabling or disfiguring.Comment reaction include, nausea/vomiting, dizziness/vertigo, visual disturbances, somnolence,ataxia, pruritus/rash, pharyngitis, headache, rhinitis, diarrhea, fever, asthenia, insomnia, tremor,abdominal pain, cough, accidental injury, constipation, dysmenorrhea, incoordination, anxiety,seizures, irritability, anorexia, xerostomia, and photosensitivity.Ser ious reactions include: Rash, severe; Smith Gordy syndrome; toxic epidermal necrosis;injury edema, hypersensitivity reactions. Including fatal, multiple organ failure to safe fatal, rash witheosinophilia systemic symptoms, DIC, neutropenia, leukopenia, thrombocytopenia, pancytopenia,aplasti c anemia, hemolytic anemia, i pancreatitis, hepatic failure, rhabdomyolysis, worsening ofsuicidal ideation, worsening of depression, cleft lip/palate [first trimester use]DO not Change Cosmetic, perfumes or soap for next 4 weeks.The patient was advice to take lamotrigine as prescribed the patient was instructed not to deviatefrom the prescription dosages. Stop lamotrigine is the first sign of rash. Patient was insisted to informoffice if any of the serious side effect develops. discuss therpay options- patient does not want at this time lamotrigine 200 mg tablet - Take 1 tablet(s) every day by oral route at bedtime see pain management and GI 2. Generalized anxiety disorder -Clonazepam 1.5 mg PO [facility] local pharmacy in [place] no early refills on control substance educated on no control substance prescribed if cannabis or illegal substance or ETOH abuse UDS and random - SSRI/SNRI side effects discussed including but not limited to, gastric upset, nausea, vomiting, diarrhea and/or constipation, weight changes, sexual side effects including loss of libido, increased suicidal thoughts/behaviors in children and young adults, and serotonin syndrome. colonoscopy 2013refused flu vaccinesrefused COVID vaccines Discussed and educated pt regarding benzodiazepines are generally not intended for prolonged use and that use can cause tolerance, dependence, depression, and associated memory issues including dementias (this list is not exhaustive). Benzodiazepine use is generally not recommended concurrently with pain medications and/or other controlled substances due to increased risks of profound sedation, respiratory depression, coma, and even . They are not to be used with any alcohol, as this combination can also be lethal. Patient was provided caution http_s://www.[employer]/cannabis-us t-cxrxvwqx-vjwjwdhhv -adhd/ http_s://www.[employer].or g/Eznfd-Hnzzfh-Uizpn ss/Tascds-Nqwtxu-Jhx ditions http_s://psychiQVCloud/depression/the -cognitive-symptoms- of-depression#treatm ents http__s://www.nimh.n ih.gov/health/topics /keeztp-upqqcc-ptzwb ations http__s://www.maxwell.o rg/Pgxcw-Yjihvb-Fsnn ess/Treatments/Menta u-Khqemf-Qscbqenvyfy 3. Tobacco user General health and safety guidelines: Do not smoke. Nicotine and other chemicals in cigarettes and cigars can cause lung damage. Ask your healthcare provider for information if you currently smoke and need help to quit. E-cigarettes or smokeless tobacco still contain nicotine. Talk to your healthcare provider before you use these products. Smoking Education Do not smoke. Nicotine and other chemicals in cigarettes and cigars can cause lung damage. Ask your healthcare provider for information if you currently smoke and need help to quit. E-cigarettes or smokeless tobacco still contain nicotine. Talk to your healthcare provider before you use these products. education on decrease to stopping nicotine products and stop smoking hotline given -Quit - Yes [place] Tobacco Quitline Call a Smoking Quitline The [employer] Smoking Quitline, (8-613-52Q-QUIT) Smokefree.gov, which connects you with your State's Quitline, (4-116-RCECWFW) Veterans Smoking Quitline, (4-870-RLUVGXK) 4. Primary insomnia see sleep provider 5. Long-term drug therapy -control substance agreement Clonazepam UDS 05/20/2025 Generalized anxiety disorder (ICD-10 - F41.1) Generalized Anxiety Disorder: Care Instructions material was published, Learning About Anxiety Disorders material was published, Learning About Transcranial Magnetic Stimulation (TMS) material was published 1.major depression - continue depression- discuss and educated on medications options- reviewed [facility] Add Vyalar 1.5 mg every other day for depression and auditory hallucinations- samples given patient also seeing neurosurgeon for migraines and headaches medical issues - see specialists colonoscopy 11/24/23 hx auditory hallucinations- refer to neurologist and r/o migrianes and insomnia cause- psychosis auditory and sleep issues and with migraine hx on Botox educated and discuss Lamotrigine 200 mg po hs - [facility] Second generation antipsychotics (SGAs) have metabolic syndrome issues with weight gain, increase in prolactin, increased waist circumference, increased lipids, and increased glucose. Thus routine monitoring of weight, metabolic labs, etc. is indicated. A general rank ordering of antipsychotics that have the greatest to the least risk of metabolic effects is olanzapine, quetiapine, risperidone, ziprasidone, and aripiprazole. However, weight gain can occur with all of these drugs and considerable variability exists among patients receiving the same drug regarding the risk of metabolic effects. Anti-psychotic agents not only increase the risk of metabolic disorder, they also increase the risk of CVA, akathisia, and movement disorders including EPS or tardive dyskinesia (more common with first generation antipsychotics) and more. GENE SIGHT RESULTS REVIEWED educated on all medications, benefits, side effects and risk, and educated on depression, anxiety, and mood d/o and educated on compliance of medications, metabolic and movement d/o education appointment is, continue therapy discussion with patient about course of treatment and patient instructions. education on serotonin syndrome different dxn Bipolar II Lamotrigine lamotrigine has a serious rashes requiring hospitalization and discontinue treatment includingSteven Gordy syndrome rare case of toxic epidermal necrolysis and cache related deaths.Incidence with adjunct of epilepsy treatment 0.8% in 2 to 16 years old and 0.3% in adults, bipolarand other mood disorders incidence 0.8% this initial monotherapy and 0.13% as adjunctivetreatment. Other risk factor may include concomitant use of valproate acid derivative or exceeding initiallamotrigine does or does as clinician recommendation; most life-threatening rash of occurring first 2to 8 week of treatment with isolated cases after prolonged treatment; though benign may occur,discontinue treatment at first sign of rash unless clearly not a drug related; TC treatment may notprevent trash from becoming life-threatening or permanently disabling or disfiguring.Comment reaction include, nausea/vomiting, dizziness/vertigo, visual disturbances, somnolence,ataxia, pruritus/rash, pharyngitis, headache, rhinitis, diarrhea, fever, asthenia, insomnia, tremor,abdominal pain, cough, accidental injury, constipation, dysmenorrhea, incoordination, anxiety,seizures, irritability, anorexia, xerostomia, and photosensitivity.Ser ious reactions include: Rash, severe; Smith Gordy syndrome; toxic epidermal necrosis;injury edema, hypersensitivity reactions. Including fatal, multiple organ failure to safe fatal, rash witheosinophilia systemic symptoms, DIC, neutropenia, leukopenia, thrombocytopenia, pancytopenia,aplasti c anemia, hemolytic anemia, i pancreatitis, hepatic failure, rhabdomyolysis, worsening ofsuicidal ideation, worsening of depression, cleft lip/palate [first trimester use]DO not Change Cosmetic, perfumes or soap for next 4 weeks.The patient was advice to take lamotrigine as prescribed the patient was instructed not to deviatefrom the prescription dosages. Stop lamotrigine is the first sign of rash. Patient was insisted to informoffice if any of the serious side effect develops. discuss therpay options- patient does not want at this time lamotrigine 200 mg tablet - Take 1 tablet(s) every day by oral route at bedtime see pain management and GI 2. Generalized anxiety disorder - change Clonazepam 0.5 mg three times a day [facility] local pharmacy in [place] no early refills on control substance educated on no control substance prescribed if cannabis or illegal substance or ETOH abuse UDS and random - SSRI/SNRI side effects discussed including but not limited to, gastric upset, nausea, vomiting, diarrhea and/or constipation, weight changes, sexual side effects including loss of libido, increased suicidal thoughts/behaviors in children and young adults, and serotonin syndrome. colonoscopy 2013refused flu vaccinesrefused COVID vaccines Discussed and educated pt regarding benzodiazepines are generally not intended for prolonged use and that use can cause tolerance, dependence, depression, and associated memory issues including dementias (this list is not exhaustive). Benzodiazepine use is generally not recommended concurrently with pain medications and/or other controlled substances due to increased risks of profound sedation, respiratory depression, coma, and even . They are not to be used with any alcohol, as this combination can also be lethal. Patient was provided caution http_s://www.[employer]/cannabis-us n-fcmuoqnw-zsmozvwmz -adhd/ http_s://www.maxwell.or g/Hfjly-Klquus-Uaiiw ss/Suobbj-Myqppx-Rtv ditions http_s://psychcentLiveSt[employer]com/depression/the -cognitive-symptoms- of-depression#treatm ents http__s://www.[facility].n ih.gov/health/topics /ebppwh-ldttww-uiyfo ations http__s://www.maxwell.o rg/Rnpgz-Mpkjni-Rbzx ess/Treatments/Menta h-Znjcwq-Crqlukdiack 3. Tobacco user General health and safety guidelines: Do not smoke. Nicotine and other chemicals in cigarettes and cigars can cause lung damage. Ask your healthcare provider for information if you currently smoke and need help to quit. E-cigarettes or smokeless tobacco still contain nicotine. Talk to your healthcare provider before you use these products. Smoking Education Do not smoke. Nicotine and other chemicals in cigarettes and cigars can cause lung damage. Ask your healthcare provider for information if you currently smoke and need help to quit. E-cigarettes or smokeless tobacco still contain nicotine. Talk to your healthcare provider before you use these products. education on decrease to stopping nicotine products and stop smoking hotline given 17-Quit - Yes [place] Tobacco Quitline Call a Smoking Quitline The [employer] Smoking Quitline, (9-891-60F-QUIT) Smokefree.gov, which connects you with your State's Quitline, (1-058-UHDIHNP) Veterans Smoking Quitline, (2-098-MVTPQYS) 4. Primary insomnia see sleep provider 5. Long-term drug therapy -control substance agreement Clonazepam UDS 08/21/2024 Other technician terminal and repeater (current) drug therapy (ICD-10 - Z79.899) Medication Refill: Care Instructions material was published, Medication Refill: Care Instructions material was published 1.major depression - with auditory hallucinations- refer to neurologist and r/o migrianes and insomnia cause- psychosis improved and sleep improved with migraine improved on Botox educated and discuss patient stopped Seroquel 25 mg at bedtime - dizziness, and extreme fatigue Lamotrigine 200 mg po hs - [facility] Second generation antipsychotics (SGAs) have metabolic syndrome issues with weight gain, increase in prolactin, increased waist circumference, increased lipids, and increased glucose. Thus routine monitoring of weight, metabolic labs, etc. is indicated. A general rank ordering of antipsychotics that have the greatest to the least risk of metabolic effects is olanzapine, quetiapine, risperidone, ziprasidone, and aripiprazole. However, weight gain can occur with all of these drugs and considerable variability exists among patients receiving the same drug regarding the risk of metabolic effects. Anti-psychotic agents not only increase the risk of metabolic disorder, they also increase the risk of CVA, akathisia, and movement disorders including EPS or tardive dyskinesia (more common with first generation antipsychotics) and more. GENE SIGHT RESULTS REVIEWED and copy given to patient educated on all medications, benefits, side effects and risk, and educated on depression, anxiety, and mood d/o and educated on compliance of medications, metabolic and movement d/o education appointment is, continue therapy discussion with patient about course of treatment and patient instructions. education on serotonin syndrome different dxn Bipolar II Lamotrigine lamotrigine has a serious rashes requiring hospitalization and discontinue treatment includingSteven Gordy syndrome rare case of toxic epidermal necrolysis and cache related deaths.Incidence with adjunct of epilepsy treatment 0.8% in 2 to 16 years old and 0.3% in adults, bipolarand other mood disorders incidence 0.8% this initial monotherapy and 0.13% as adjunctivetreatment. Other risk factor may include concomitant use of valproate acid derivative or exceeding initiallamotrigine does or does as clinician recommendation; most life-threatening rash of occurring first 2to 8 week of treatment with isolated cases after prolonged treatment; though benign may occur,discontinue treatment at first sign of rash unless clearly not a drug related; TC treatment may notprevent trash from becoming life-threatening or permanently disabling or disfiguring.Comment reaction include, nausea/vomiting, dizziness/vertigo, visual disturbances, somnolence,ataxia, pruritus/rash, pharyngitis, headache, rhinitis, diarrhea, fever, asthenia, insomnia, tremor,abdominal pain, cough, accidental injury, constipation, dysmenorrhea, incoordination, anxiety,seizures, irritability, anorexia, xerostomia, and photosensitivity.Ser ious reactions include: Rash, severe; Smith Gordy syndrome; toxic epidermal necrosis;injury edema, hypersensitivity reactions. Including fatal, multiple organ failure to safe fatal, rash witheosinophilia systemic symptoms, DIC, neutropenia, leukopenia, thrombocytopenia, pancytopenia,aplasti c anemia, hemolytic anemia, i pancreatitis, hepatic failure, rhabdomyolysis, worsening ofsuicidal ideation, worsening of depression, cleft lip/palate [first trimester use]DO not Change Cosmetic, perfumes or soap for next 4 weeks.The patient was advice to take lamotrigine as prescribed the patient was instructed not to deviatefrom the prescription dosages. Stop lamotrigine is the first sign of rash. Patient was insisted to informoffice if any of the serious side effect develops. discuss therpay options- patient does not want at this time lamotrigine 200 mg tablet - Take 1 tablet(s) every day by oral route at bedtime 2. Generalized anxiety disorder -Clonazepam 1.5 mg PO [facility] local pharmacy in [place] no early refills on control substance educated on no control substance prescribed if cannabis or illegal substance or ETOH abuse UDS and random - SSRI/SNRI side effects discussed including but not limited to, gastric upset, nausea, vomiting, diarrhea and/or constipation, weight changes, sexual side effects including loss of libido, increased suicidal thoughts/behaviors in children and young adults, and serotonin syndrome. colonoscopy 2013refused flu vaccinesrefused COVID vaccines Discussed and educated pt regarding benzodiazepines are generally not intended for prolonged use and that use can cause tolerance, dependence, depression, and associated memory issues including dementias (this list is not exhaustive). Benzodiazepine use is generally not recommended concurrently with pain medications and/or other controlled substances due to increased risks of profound sedation, respiratory depression, coma, and even . They are not to be used with any alcohol, as this combination can also be lethal. Patient was provided caution http_s://www.[employer].com/cannabis-us q-ybscnmzx-oecwivrna -adhd/ http_s://www.maxwell.or g/Knery-Djtkvu-Fkfvm ss/Dyhttn-Iduzyt-Sru ditions http_s://psychcentra [employer]com/depression/the -cognitive-symptoms- of-depression#treatm ents http__s://www.[facility].n .gov/health/topics /chsimt-iyklws-pyuwm ations http__s://www.maxwell.o rg/Rewgy-Vouote-Savi ess/Treatments/Menta w-Lighwa-Ywfejhlghsa 3. Tobacco user General health and safety guidelines: Do not smoke. Nicotine and other chemicals in cigarettes and cigars can cause lung damage. Ask your healthcare provider for information if you currently smoke and need help to quit. E-cigarettes or smokeless tobacco still contain nicotine. Talk to your healthcare provider before you use these products. 4. Primary insomnia see sleep provider 5. Long-term drug therapy -control substance agreement Clonazepam UDS 11/24/2024 Other [facility] (current) drug therapy (ICD-10 - Z79.899) Medication Refill: Care Instructions material was published, Medication Refill: Care Instructions material was published 1.major depression - continue depression- medical issues - colonoscopy scheduled 11/24/23 hx auditory hallucinations- refer to neurologist and r/o migrianes and insomnia cause- psychosis improved and sleep improved with migraine improved on Botox educated and discuss Lamotrigine 200 mg po hs - [facility] patient does not want to add or change rx at this time Second generation antipsychotics (SGAs) have metabolic syndrome issues with weight gain, increase in prolactin, increased waist circumference, increased lipids, and increased glucose. Thus routine monitoring of weight, metabolic labs, etc. is indicated. A general rank ordering of antipsychotics that have the greatest to the least risk of metabolic effects is olanzapine, quetiapine, risperidone, ziprasidone, and aripiprazole. However, weight gain can occur with all of these drugs and considerable variability exists among patients receiving the same drug regarding the risk of metabolic effects. Anti-psychotic agents not only increase the risk of metabolic disorder, they also increase the risk of CVA, akathisia, and movement disorders including EPS or tardive dyskinesia (more common with first generation antipsychotics) and more. GENE SIGHT RESULTS REVIEWED and copy given to patient educated on all medications, benefits, side effects and risk, and educated on depression, anxiety, and mood d/o and educated on compliance of medications, metabolic and movement d/o education appointment is, continue therapy discussion with patient about course of treatment and patient instructions. education on serotonin syndrome different dxn Bipolar II Lamotrigine lamotrigine has a serious rashes requiring hospitalization and discontinue treatment includingSteven Gordy syndrome rare case of toxic epidermal necrolysis and cache related deaths.Incidence with adjunct of epilepsy treatment 0.8% in 2 to 16 years old and 0.3% in adults, bipolarand other mood disorders incidence 0.8% this initial monotherapy and 0.13% as adjunctivetreatment. Other risk factor may include concomitant use of valproate acid derivative or exceeding initiallamotrigine does or does as clinician recommendation; most life-threatening rash of occurring first 2to 8 week of treatment with isolated cases after prolonged treatment; though benign may occur,discontinue treatment at first sign of rash unless clearly not a drug related; TC treatment may notprevent trash from becoming life-threatening or permanently disabling or disfiguring.Comment reaction include, nausea/vomiting, dizziness/vertigo, visual disturbances, somnolence,ataxia, pruritus/rash, pharyngitis, headache, rhinitis, diarrhea, fever, asthenia, insomnia, tremor,abdominal pain, cough, accidental injury, constipation, dysmenorrhea, incoordination, anxiety,seizures, irritability, anorexia, xerostomia, and photosensitivity.Ser ious reactions include: Rash, severe; Smith Gordy syndrome; toxic epidermal necrosis;injury edema, hypersensitivity reactions. Including fatal, multiple organ failure to safe fatal, rash witheosinophilia systemic symptoms, DIC, neutropenia, leukopenia, thrombocytopenia, pancytopenia,aplasti c anemia, hemolytic anemia, i pancreatitis, hepatic failure, rhabdomyolysis, worsening ofsuicidal ideation, worsening of depression, cleft lip/palate [first trimester use]DO not Change Cosmetic, perfumes or soap for next 4 weeks.The patient was advice to take lamotrigine as prescribed the patient was instructed not to deviatefrom the prescription dosages. Stop lamotrigine is the first sign of rash. Patient was insisted to informoffice if any of the serious side effect develops. discuss therpay options- patient does not want at this time lamotrigine 200 mg tablet - Take 1 tablet(s) every day by oral route at bedtime 2. Generalized anxiety disorder -Clonazepam 1.5 mg PO [facility] local pharmacy in [place] no early refills on control substance educated on no control substance prescribed if cannabis or illegal substance or ETOH abuse UDS and random - SSRI/SNRI side effects discussed including but not limited to, gastric upset, nausea, vomiting, diarrhea and/or constipation, weight changes, sexual side effects including loss of libido, increased suicidal thoughts/behaviors in children and young adults, and serotonin syndrome. colonoscopy 2013refused flu vaccinesrefused COVID vaccines Discussed and educated pt regarding benzodiazepines are generally not intended for prolonged use and that use can cause tolerance, dependence, depression, and associated memory issues including dementias (this list is not exhaustive). Benzodiazepine use is generally not recommended concurrently with pain medications and/or other controlled substances due to increased risks of profound sedation, respiratory depression, coma, and even . They are not to be used with any alcohol, as this combination can also be lethal. Patient was provided caution http_s://www.[employer]/cannabis-us y-uahrdbmp-azwbzjjjr -adhd/ http_s://www.[employer].or g/Iqigu-Uiltrk-Jxekp ss/Wzulqj-Jngerr-Vir ditions http_s://psychcentra [employer]com/depression/the -cognitive-symptoms- of-depression#treatm ents http__s://www.nimh.n ih.gov/health/topics /ddrwtf-hjokro-wgocq ations http__s://www.maxwell.o rg/Cvpmv-Fbquka-Xkyz ess/Treatments/Menta a-Cwvxso-Nkwrfficssg 3. Tobacco user General health and safety guidelines: Do not smoke. Nicotine and other chemicals in cigarettes and cigars can cause lung damage. Ask your healthcare provider for information if you currently smoke and need help to quit. E-cigarettes or smokeless tobacco still contain nicotine. Talk to your healthcare provider before you use these products. 4. Primary insomnia see sleep provider 5. Long-term drug therapy -control substance agreement Clonazepam UDS 05/20/2025 Primary insomnia (ICD-10 - F51.01) Insomnia: Care Instructions material was published, Learning About Sleeping Well material was published, Insomnia: Care Instructions material was published, Learning About Sleeping Well material was published 1.major depression - continue depression- discuss and educated on medications options- reviewed [facility] Add Vyalar 1.5 mg every other day for depression and auditory hallucinations- samples given patient also seeing neurosurgeon for migraines and headaches medical issues - see specialists colonoscopy 11/24/23 hx auditory hallucinations- refer to neurologist and r/o migrianes and insomnia cause- psychosis auditory and sleep issues and with migraine hx on Botox educated and discuss Lamotrigine 200 mg po hs - [facility] Second generation antipsychotics (SGAs) have metabolic syndrome issues with weight gain, increase in prolactin, increased waist circumference, increased lipids, and increased glucose. Thus routine monitoring of weight, metabolic labs, etc. is indicated. A general rank ordering of antipsychotics that have the greatest to the least risk of metabolic effects is olanzapine, quetiapine, risperidone, ziprasidone, and aripiprazole. However, weight gain can occur with all of these drugs and considerable variability exists among patients receiving the same drug regarding the risk of metabolic effects. Anti-psychotic agents not only increase the risk of metabolic disorder, they also increase the risk of CVA, akathisia, and movement disorders including EPS or tardive dyskinesia (more common with first generation antipsychotics) and more. GENE SIGHT RESULTS REVIEWED educated on all medications, benefits, side effects and risk, and educated on depression, anxiety, and mood d/o and educated on compliance of medications, metabolic and movement d/o education appointment is, continue therapy discussion with patient about course of treatment and patient instructions. education on serotonin syndrome different dxn Bipolar II Lamotrigine lamotrigine has a serious rashes requiring hospitalization and discontinue treatment includingSteven Gordy syndrome rare case of toxic epidermal necrolysis and cache related deaths.Incidence with adjunct of epilepsy treatment 0.8% in 2 to 16 years old and 0.3% in adults, bipolarand other mood disorders incidence 0.8% this initial monotherapy and 0.13% as adjunctivetreatment. Other risk factor may include concomitant use of valproate acid derivative or exceeding initiallamotrigine does or does as clinician recommendation; most life-threatening rash of occurring first 2to 8 week of treatment with isolated cases after prolonged treatment; though benign may occur,discontinue treatment at first sign of rash unless clearly not a drug related; TC treatment may notprevent trash from becoming life-threatening or permanently disabling or disfiguring.Comment reaction include, nausea/vomiting, dizziness/vertigo, visual disturbances, somnolence,ataxia, pruritus/rash, pharyngitis, headache, rhinitis, diarrhea, fever, asthenia, insomnia, tremor,abdominal pain, cough, accidental injury, constipation, dysmenorrhea, incoordination, anxiety,seizures, irritability, anorexia, xerostomia, and photosensitivity.Ser ious reactions include: Rash, severe; Smith Gordy syndrome; toxic epidermal necrosis;injury edema, hypersensitivity reactions. Including fatal, multiple organ failure to safe fatal, rash witheosinophilia systemic symptoms, DIC, neutropenia, leukopenia, thrombocytopenia, pancytopenia,aplasti c anemia, hemolytic anemia, i pancreatitis, hepatic failure, rhabdomyolysis, worsening ofsuicidal ideation, worsening of depression, cleft lip/palate [first trimester use]DO not Change Cosmetic, perfumes or soap for next 4 weeks.The patient was advice to take lamotrigine as prescribed the patient was instructed not to deviatefrom the prescription dosages. Stop lamotrigine is the first sign of rash. Patient was insisted to informoffice if any of the serious side effect develops. discuss therpay options- patient does not want at this time lamotrigine 200 mg tablet - Take 1 tablet(s) every day by oral route at bedtime see pain management and GI 2. Generalized anxiety disorder - change Clonazepam 0.5 mg three times a day [facility] local pharmacy in [place] no early refills on control substance educated on no control substance prescribed if cannabis or illegal substance or ETOH abuse UDS and random - SSRI/SNRI side effects discussed including but not limited to, gastric upset, nausea, vomiting, diarrhea and/or constipation, weight changes, sexual side effects including loss of libido, increased suicidal thoughts/behaviors in children and young adults, and serotonin syndrome. colonoscopy 2013refused flu vaccinesrefused COVID vaccines Discussed and educated pt regarding benzodiazepines are generally not intended for prolonged use and that use can cause tolerance, dependence, depression, and associated memory issues including dementias (this list is not exhaustive). Benzodiazepine use is generally not recommended concurrently with pain medications and/or other controlled substances due to increased risks of profound sedation, respiratory depression, coma, and even . They are not to be used with any alcohol, as this combination can also be lethal. Patient was provided caution http_s://www.add[employer]ag.com/cannabis-us y-qqzwqxww-kkjewousz -adhd/ http_s://www.maxwell.or g/Ipjgn-Ljdgrf-Kydrh ss/Dzabhl-Muesxd-Www ditions http_s://psychcentLiveStubcom/depression/the -cognitive-symptoms- of-depression#treatm ents http__s://www.[facility].n ih.gov/health/topics /ezvgmd-iumqkb-haalz ations http__s://www.maxwell.o rg/Ffpig-Xrpzau-Heah ess/Treatments/Menta x-Spwgpp-Iubmrzmcttg 3. Tobacco user General health and safety guidelines: Do not smoke. Nicotine and other chemicals in cigarettes and cigars can cause lung damage. Ask your healthcare provider for information if you currently smoke and need help to quit. E-cigarettes or smokeless tobacco still contain nicotine. Talk to your healthcare provider before you use these products. Smoking Education Do not smoke. Nicotine and other chemicals in cigarettes and cigars can cause lung damage. Ask your healthcare provider for information if you currently smoke and need help to quit. E-cigarettes or smokeless tobacco still contain nicotine. Talk to your healthcare provider before you use these products. education on decrease to stopping nicotine products and stop smoking hotline given -Quit - Yes [place] Tobacco Quitline Call a Smoking Quitline The National [employer] Smoking Quitline, (6-130-46Y-QUIT) Smokefree.gov, which connects you with your State's Quitline, (3-565-GCVEFFD) Veterans Smoking Quitline, (5-740-BODISXY) 4. Primary insomnia see sleep provider 5. Long-term drug therapy -control substance agreement Clonazepam UDS 02/18/2025 Tobacco use (ICD-10 - Z72.0) Quitting Tobacco: Care Instructions material was published, Deciding About Using Medicines To Quit Smoking material was published, Learning About Benefits of Quitting Smoking material was published, Stopping Smokeless Tobacco Use: Care Instructions material was published, Stopping Smokeless Tobacco Use: Care Instructions material was published, Learning About Benefits of Quitting Smoking material was published, Deciding About Using Medicines To Quit Smoking material was published, Quitting Tobacco: Care Instructions material was published 1.major depression - continue depression- medical issues - see specialist colonoscopy 11/24/23 hx auditory hallucinations- refer to neurologist and r/o migrianes and insomnia cause- psychosis improved and sleep improved with migraine improved on Botox educated and discuss Lamotrigine 200 mg po hs - [facility] patient does not want to add or change rx at this time Second generation antipsychotics (SGAs) have metabolic syndrome issues with weight gain, increase in prolactin, increased waist circumference, increased lipids, and increased glucose. Thus routine monitoring of weight, metabolic labs, etc. is indicated. A general rank ordering of antipsychotics that have the greatest to the least risk of metabolic effects is olanzapine, quetiapine, risperidone, ziprasidone, and aripiprazole. However, weight gain can occur with all of these drugs and considerable variability exists among patients receiving the same drug regarding the risk of metabolic effects. Anti-psychotic agents not only increase the risk of metabolic disorder, they also increase the risk of CVA, akathisia, and movement disorders including EPS or tardive dyskinesia (more common with first generation antipsychotics) and more. GENE SIGHT RESULTS REVIEWED and copy given to patient educated on all medications, benefits, side effects and risk, and educated on depression, anxiety, and mood d/o and educated on compliance of medications, metabolic and movement d/o education appointment is, continue therapy discussion with patient about course of treatment and patient instructions. education on serotonin syndrome different dxn Bipolar II Lamotrigine lamotrigine has a serious rashes requiring hospitalization and discontinue treatment includingSteven Gordy syndrome rare case of toxic epidermal necrolysis and cache related deaths.Incidence with adjunct of epilepsy treatment 0.8% in 2 to 16 years old and 0.3% in adults, bipolarand other mood disorders incidence 0.8% this initial monotherapy and 0.13% as adjunctivetreatment. Other risk factor may include concomitant use of valproate acid derivative or exceeding initiallamotrigine does or does as clinician recommendation; most life-threatening rash of occurring first 2to 8 week of treatment with isolated cases after prolonged treatment; though benign may occur,discontinue treatment at first sign of rash unless clearly not a drug related; TC treatment may notprevent trash from becoming life-threatening or permanently disabling or disfiguring.Comment reaction include, nausea/vomiting, dizziness/vertigo, visual disturbances, somnolence,ataxia, pruritus/rash, pharyngitis, headache, rhinitis, diarrhea, fever, asthenia, insomnia, tremor,abdominal pain, cough, accidental injury, constipation, dysmenorrhea, incoordination, anxiety,seizures, irritability, anorexia, xerostomia, and photosensitivity.Ser ious reactions include: Rash, severe; Smith Grody syndrome; toxic epidermal necrosis;injury edema, hypersensitivity reactions. Including fatal, multiple organ failure to safe fatal, rash witheosinophilia systemic symptoms, DIC, neutropenia, leukopenia, thrombocytopenia, pancytopenia,aplasti c anemia, hemolytic anemia, i pancreatitis, hepatic failure, rhabdomyolysis, worsening ofsuicidal ideation, worsening of depression, cleft lip/palate [first trimester use]DO not Change Cosmetic, perfumes or soap for next 4 weeks.The patient was advice to take lamotrigine as prescribed the patient was instructed not to deviatefrom the prescription dosages. Stop lamotrigine is the first sign of rash. Patient was insisted to informoffice if any of the serious side effect develops. discuss therpay options- patient does not want at this time lamotrigine 200 mg tablet - Take 1 tablet(s) every day by oral route at bedtime see pain management and GI 2. Generalized anxiety disorder -Clonazepam 1.5 mg PO [facility] local pharmacy in [place] no early refills on control substance educated on no control substance prescribed if cannabis or illegal substance or ETOH abuse UDS and random - SSRI/SNRI side effects discussed including but not limited to, gastric upset, nausea, vomiting, diarrhea and/or constipation, weight changes, sexual side effects including loss of libido, increased suicidal thoughts/behaviors in children and young adults, and serotonin syndrome. colonoscopy 2012refused flu vaccinesrefused COVID vaccines Discussed and educated pt regarding benzodiazepines are generally not intended for prolonged use and that use can cause tolerance, dependence, depression, and associated memory issues including dementias (this list is not exhaustive). Benzodiazepine use is generally not recommended concurrently with pain medications and/or other controlled substances due to increased risks of profound sedation, respiratory depression, coma, and even . They are not to be used with any alcohol, as this combination can also be lethal. Patient was provided caution http_s://www.[employer].com/cannabis-us l-snlnlkzx-ixrwcnurr -adhd/ http_s://www.maxwell.or g/Zkmvq-Ayzugb-Jzpvm ss/Dyqsor-Cojfbj-Yld ditions http_s://psychStarfish 360com/depression/the -cognitive-symptoms- of-depression#treatm ents http__s://www.[facility].n ih.gov/health/topics /zcqlka-peclmb-hnhxn ations http__s://www.maxwell.o rg/Bkdlh-Dwaelo-Jkti ess/Treatments/Menta g-Ukdzws-Fiivebfdzga 3. Tobacco user General health and safety guidelines: Do not smoke. Nicotine and other chemicals in cigarettes and cigars can cause lung damage. Ask your healthcare provider for information if you currently smoke and need help to quit. E-cigarettes or smokeless tobacco still contain nicotine. Talk to your healthcare provider before you use these products. Smoking Education Do not smoke. Nicotine and other chemicals in cigarettes and cigars can cause lung damage. Ask your healthcare provider for information if you currently smoke and need help to quit. E-cigarettes or smokeless tobacco still contain nicotine. Talk to your healthcare provider before you use these products. education on decrease to stopping nicotine products and stop smoking hotline given 560-Quit - Yes [place] Tobacco Quitline Call a Smoking Quitline The [employer] Smoking Quitline, (0-518-11X-QUIT) Smokefree.gov, which connects you with your State's Quitline, (2-196-QZYURYD) Veterans Smoking Quitline, (0-623-JEBDNLL) 4. Primary insomnia see sleep provider 5. Long-term drug therapy -control substance agreement Clonazepam UDS 06/03/2025 Tobacco use (ICD-10 - Z72.0) Quitting Tobacco: Care Instructions material was published, Deciding About Using Medicines To Quit Smoking material was published, Learning About Benefits of Quitting Smoking material was published, Stopping Smokeless Tobacco Use: Care Instructions material was published, Stopping Smokeless Tobacco Use: Care Instructions material was published, Learning About Benefits of Quitting Smoking material was published, Deciding About Using Medicines To Quit Smoking material was published, Quitting Tobacco: Care Instructions material was published 1.major depression - continue depression- discuss and educated on medications options- reviewed [facility] Increase Vyalar 1.5 mg day for depression and auditory and olfactory hallucinations- samples given patient also seeing neurosurgeon for migraines and headaches MRI brain- hx 2 years ago and neurosurgeon scheduled 07/01 will discuss medical issues - see specialists colonoscopy 11/24/23 hx auditory hallucinations- refer to neurologist and r/o migrianes and insomnia cause- psychosis auditory and olfactory and sleep issues and with migraine hx on Botox educated and discuss Lamotrigine 200 mg po hs - [facility] refer to therapy Second generation antipsychotics (SGAs) have metabolic syndrome issues with weight gain, increase in prolactin, increased waist circumference, increased lipids, and increased glucose. Thus routine monitoring of weight, metabolic labs, etc. is indicated. A general rank ordering of antipsychotics that have the greatest to the least risk of metabolic effects is olanzapine, quetiapine, risperidone, ziprasidone, and aripiprazole. However, weight gain can occur with all of these drugs and considerable variability exists among patients receiving the same drug regarding the risk of metabolic effects. Anti-psychotic agents not only increase the risk of metabolic disorder, they also increase the risk of CVA, akathisia, and movement disorders including EPS or tardive dyskinesia (more common with first generation antipsychotics) and more. GENE SIGHT RESULTS REVIEWED educated on all medications, benefits, side effects and risk, and educated on depression, anxiety, and mood d/o and educated on compliance of medications, metabolic and movement d/o education appointment is, continue therapy discussion with patient about course of treatment and patient instructions. education on serotonin syndrome different dxn Bipolar II Lamotrigine lamotrigine has a serious rashes requiring hospitalization and discontinue treatment includingSteven Gordy syndrome rare case of toxic epidermal necrolysis and cache related deaths.Incidence with adjunct of epilepsy treatment 0.8% in 2 to 16 years old and 0.3% in adults, bipolarand other mood disorders incidence 0.8% this initial monotherapy and 0.13% as adjunctivetreatment. Other risk factor may include concomitant use of valproate acid derivative or exceeding initiallamotrigine does or does as clinician recommendation; most life-threatening rash of occurring first 2to 8 week of treatment with isolated cases after prolonged treatment; though benign may occur,discontinue treatment at first sign of rash unless clearly not a drug related; TC treatment may notprevent trash from becoming life-threatening or permanently disabling or disfiguring.Comment reaction include, nausea/vomiting, dizziness/vertigo, visual disturbances, somnolence,ataxia, pruritus/rash, pharyngitis, headache, rhinitis, diarrhea, fever, asthenia, insomnia, tremor,abdominal pain, cough, accidental injury, constipation, dysmenorrhea, incoordination, anxiety,seizures, irritability, anorexia, xerostomia, and photosensitivity.Ser ious reactions include: Rash, severe; Smith Gordy syndrome; toxic epidermal necrosis;injury edema, hypersensitivity reactions. Including fatal, multiple organ failure to safe fatal, rash witheosinophilia systemic symptoms, DIC, neutropenia, leukopenia, thrombocytopenia, pancytopenia,aplasti c anemia, hemolytic anemia, i pancreatitis, hepatic failure, rhabdomyolysis, worsening ofsuicidal ideation, worsening of depression, cleft lip/palate [first trimester use]DO not Change Cosmetic, perfumes or soap for next 4 weeks.The patient was advice to take lamotrigine as prescribed the patient was instructed not to deviatefrom the prescription dosages. Stop lamotrigine is the first sign of rash. Patient was insisted to informoffice if any of the serious side effect develops. discuss therpay options- patient does not want at this time lamotrigine 200 mg tablet - Take 1 tablet(s) every day by oral route at bedtime see pain management and GI 2. Generalized anxiety disorder - increase Clonazepam 0.5 mg four times a day [facility] local pharmacy in [place] no early refills on control substance educated on no control substance prescribed if cannabis or illegal substance or ETOH abuse UDS and random - SSRI/SNRI side effects discussed including but not limited to, gastric upset, nausea, vomiting, diarrhea and/or constipation, weight changes, sexual side effects including loss of libido, increased suicidal thoughts/behaviors in children and young adults, and serotonin syndrome. colonoscopy 2013refused flu vaccinesrefused COVID vaccines Discussed and educated pt regarding benzodiazepines are generally not intended for prolonged use and that use can cause tolerance, dependence, depression, and associated memory issues including dementias (this list is not exhaustive). Benzodiazepine use is generally not recommended concurrently with pain medications and/or other controlled substances due to increased risks of profound sedation, respiratory depression, coma, and even . They are not to be used with any alcohol, as this combination can also be lethal. Patient was provided caution http_s://www.[employer]/cannabis-us x-fjmdjgqo-zsnvcazfv -adhd/ http_s://www.maxwell.or g/Ftglu-Mozokw-Dpvyq ss/Rsivxp-Fazydl-Jwk ditions http_s://psychcentNeighbortree.com/depression/the -cognitive-symptoms- of-depression#treatm ents http__s://www.[facility].n ih.gov/health/topics /kgfqgw-qwalgb-iakgp ations http__s://www.maxwell.o rg/Gzoug-Frtcxf-Zwvc ess/Treatments/Menta c-Yyldyz-Ibarixxbvti 3. Tobacco user General health and safety guidelines: Do not smoke. Nicotine and other chemicals in cigarettes and cigars can cause lung damage. Ask your healthcare provider for information if you currently smoke and need help to quit. E-cigarettes or smokeless tobacco still contain nicotine. Talk to your healthcare provider before you use these products. Smoking Education Do not smoke. Nicotine and other chemicals in cigarettes and cigars can cause lung damage. Ask your healthcare provider for information if you currently smoke and need help to quit. E-cigarettes or smokeless tobacco still contain nicotine. Talk to your healthcare provider before you use these products. education on decrease to stopping nicotine products and stop smoking hotline given -Quit - Yes [place] Tobacco Quitline Call a Smoking Quitline The [employer] Smoking Quitline, (4-384-54M-QUIT) Smokefree.gov, which connects you with your State's Quitline, (9-572-DTFKYKN) [facility] Smoking Quitline, (9-728-AZRBZYE) 4. Primary insomnia see sleep provider 5. 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) drug therapy (ICD-10 - Z79.899) Medication Refill: Care Instructions material was published, Medication Refill: Care Instructions material was published 1.major depression - continue depression- discuss and educated on medications options- reviewed Gene Sight Increase Vyalar 1.5 mg day for depression and auditory and olfactory hallucinations- samples given patient also seeing neurosurgeon for migraines and headaches MRI brain- hx 2 years ago and neurosurgeon scheduled 07/01 will discuss medical issues - see specialists colonoscopy 11/24/23 hx auditory hallucinations- refer to neurologist and r/o migrianes and insomnia cause- psychosis auditory and olfactory and sleep issues and with migraine hx on Botox educated and discuss Lamotrigine 200 mg po hs - [facility] refer to therapy Second generation antipsychotics (SGAs) have metabolic syndrome issues with weight gain, increase in prolactin, increased waist circumference, increased lipids, and increased glucose. Thus routine monitoring of weight, metabolic labs, etc. is indicated. A general rank ordering of antipsychotics that have the greatest to the least risk of metabolic effects is olanzapine, quetiapine, risperidone, ziprasidone, and aripiprazole. However, weight gain can occur with all of these drugs and considerable variability exists among patients receiving the same drug regarding the risk of metabolic effects. Anti-psychotic agents not only increase the risk of metabolic disorder, they also increase the risk of CVA, akathisia, and movement disorders including EPS or tardive dyskinesia (more common with first generation antipsychotics) and more. GENE SIGHT RESULTS REVIEWED educated on all medications, benefits, side effects and risk, and educated on depression, anxiety, and mood d/o and educated on compliance of medications, metabolic and movement d/o education appointment is, continue therapy discussion with patient about course of treatment and patient instructions. education on serotonin syndrome different dxn Bipolar II Lamotrigine lamotrigine has a serious rashes requiring hospitalization and discontinue treatment includingSteven Gordy syndrome rare case of toxic epidermal necrolysis and cache related deaths.Incidence with adjunct of epilepsy treatment 0.8% in 2 to 16 years old and 0.3% in adults, bipolarand other mood disorders incidence 0.8% this initial monotherapy and 0.13% as adjunctivetreatment. Other risk factor may include concomitant use of valproate acid derivative or exceeding initiallamotrigine does or does as clinician recommendation; most life-threatening rash of occurring first 2to 8 week of treatment with isolated cases after prolonged treatment; though benign may occur,discontinue treatment at first sign of rash unless clearly not a drug related; TC treatment may notprevent trash from becoming life-threatening or permanently disabling or disfiguring.Comment reaction include, nausea/vomiting, dizziness/vertigo, visual disturbances, somnolence,ataxia, pruritus/rash, pharyngitis, headache, rhinitis, diarrhea, fever, asthenia, insomnia, tremor,abdominal pain, cough, accidental injury, constipation, dysmenorrhea, incoordination, anxiety,seizures, irritability, anorexia, xerostomia, and photosensitivity.Ser ious reactions include: Rash, severe; Smith Gordy syndrome; toxic epidermal necrosis;injury edema, hypersensitivity reactions. Including fatal, multiple organ failure to safe fatal, rash witheosinophilia systemic symptoms, DIC, neutropenia, leukopenia, thrombocytopenia, pancytopenia,aplasti c anemia, hemolytic anemia, i pancreatitis, hepatic failure, rhabdomyolysis, worsening ofsuicidal ideation, worsening of depression, cleft lip/palate [first trimester use]DO not Change Cosmetic, perfumes or soap for next 4 weeks.The patient was advice to take lamotrigine as prescribed the patient was instructed not to deviatefrom the prescription dosages. Stop lamotrigine is the first sign of rash. Patient was insisted to informoffice if any of the serious side effect develops. discuss therpay options- patient does not want at this time lamotrigine 200 mg tablet - Take 1 tablet(s) every day by oral route at bedtime see pain management and GI 2. Generalized anxiety disorder - increase Clonazepam 0.5 mg four times a day [facility] local pharmacy in [place] no early refills on control substance educated on no control substance prescribed if cannabis or illegal substance or ETOH abuse UDS and random - SSRI/SNRI side effects discussed including but not limited to, gastric upset, nausea, vomiting, diarrhea and/or constipation, weight changes, sexual side effects including loss of libido, increased suicidal thoughts/behaviors in children and young adults, and serotonin syndrome. colonoscopy 2013refused flu vaccinesrefused COVID vaccines Discussed and educated pt regarding benzodiazepines are generally not intended for prolonged use and that use can cause tolerance, dependence, depression, and associated memory issues including dementias (this list is not exhaustive). Benzodiazepine use is generally not recommended concurrently with pain medications and/or other controlled substances due to increased risks of profound sedation, respiratory depression, coma, and even . They are not to be used with any alcohol, as this combination can also be lethal. Patient was provided caution http_s://www.[employer].com/cannabis-us h-ogfnhxun-pieibkwno -adhd/ http_s://www.maxwell.or g/Zuiwu-Vdukmf-Xbwzj ss/Jndvfy-Goajfv-Umo ditions http_s://psychcentLiveStubcom/depression/the -cognitive-symptoms- of-depression#treatm ents http__s://www.nimh.n ih.gov/health/topics /jarnaq-rxfpqj-bgbve ations http__s://www.maxwell.o rg/Doywo-Pdjnak-Wznc ess/Treatments/Menta l-Hheyfc-Ggvsfhllbgo 3. Tobacco user General health and safety guidelines: Do not smoke. Nicotine and other chemicals in cigarettes and cigars can cause lung damage. Ask your healthcare provider for information if you currently smoke and need help to quit. E-cigarettes or smokeless tobacco still contain nicotine. Talk to your healthcare provider before you use these products. Smoking Education Do not smoke. Nicotine and other chemicals in cigarettes and cigars can cause lung damage. Ask your healthcare provider for information if you currently smoke and need help to quit. E-cigarettes or smokeless tobacco still contain nicotine. Talk to your healthcare provider before you use these products. education on decrease to stopping nicotine products and stop smoking hotline given -Quit - Yes [place] Tobacco Quitline Call a Smoking Quitline The [employer] Smoking Quitline, (9-797-95Z-QUIT) Smokefree.gov, which connects you with your State's Quitline, (4-190-YWHNLWY) Veterans Smoking Quitline, (5-838-PZOQIGC) 4. Primary insomnia see sleep provider 5. Long-term drug therapy -control substance agreement Clonazepam UDS 05/20/2025 Tobacco use (ICD-10 - Z72.0) Quitting Tobacco: Care Instructions material was published, Deciding About Using Medicines To Quit Smoking material was published, Learning About Benefits of Quitting Smoking material was published, Stopping Smokeless Tobacco Use: Care Instructions material was published, Stopping Smokeless Tobacco Use: Care Instructions material was published, Learning About Benefits of Quitting Smoking material was published, Deciding About Using Medicines To Quit Smoking material was published, Quitting Tobacco: Care Instructions material was published 1.major depression - continue depression- discuss and educated on medications options- reviewed [facility] S[facility] Add Vyalar 1.5 mg every other day for depression and auditory hallucinations- samples given patient also seeing neurosurgeon for migraines and headaches medical issues - see specialists colonoscopy 11/24/23 hx auditory hallucinations- refer to neurologist and r/o migrianes and insomnia cause- psychosis auditory and sleep issues and with migraine hx on Botox educated and discuss Lamotrigine 200 mg po hs - [facility] Second generation antipsychotics (SGAs) have metabolic syndrome issues with weight gain, increase in prolactin, increased waist circumference, increased lipids, and increased glucose. Thus routine monitoring of weight, metabolic labs, etc. is indicated. A general rank ordering of antipsychotics that have the greatest to the least risk of metabolic effects is olanzapine, quetiapine, risperidone, ziprasidone, and aripiprazole. However, weight gain can occur with all of these drugs and considerable variability exists among patients receiving the same drug regarding the risk of metabolic effects. Anti-psychotic agents not only increase the risk of metabolic disorder, they also increase the risk of CVA, akathisia, and movement disorders including EPS or tardive dyskinesia (more common with first generation antipsychotics) and more. GENE SIGHT RESULTS REVIEWED educated on all medications, benefits, side effects and risk, and educated on depression, anxiety, and mood d/o and educated on compliance of medications, metabolic and movement d/o education appointment is, continue therapy discussion with patient about course of treatment and patient instructions. education on serotonin syndrome different dxn Bipolar II Lamotrigine lamotrigine has a serious rashes requiring hospitalization and discontinue treatment includingSteven Gordy syndrome rare case of toxic epidermal necrolysis and cache related deaths.Incidence with adjunct of epilepsy treatment 0.8% in 2 to 16 years old and 0.3% in adults, bipolarand other mood disorders incidence 0.8% this initial monotherapy and 0.13% as adjunctivetreatment. Other risk factor may include concomitant use of valproate acid derivative or exceeding initiallamotrigine does or does as clinician recommendation; most life-threatening rash of occurring first 2to 8 week of treatment with isolated cases after prolonged treatment; though benign may occur,discontinue treatment at first sign of rash unless clearly not a drug related; TC treatment may notprevent trash from becoming life-threatening or permanently disabling or disfiguring.Comment reaction include, nausea/vomiting, dizziness/vertigo, visual disturbances, somnolence,ataxia, pruritus/rash, pharyngitis, headache, rhinitis, diarrhea, fever, asthenia, insomnia, tremor,abdominal pain, cough, accidental injury, constipation, dysmenorrhea, incoordination, anxiety,seizures, irritability, anorexia, xerostomia, and photosensitivity.Ser ious reactions include: Rash, severe; Smith Gordy syndrome; toxic epidermal necrosis;injury edema, hypersensitivity reactions. Including fatal, multiple organ failure to safe fatal, rash witheosinophilia systemic symptoms, DIC, neutropenia, leukopenia, thrombocytopenia, pancytopenia,aplasti c anemia, hemolytic anemia, i pancreatitis, hepatic failure, rhabdomyolysis, worsening ofsuicidal ideation, worsening of depression, cleft lip/palate [first trimester use]DO not Change Cosmetic, perfumes or soap for next 4 weeks.The patient was advice to take lamotrigine as prescribed the patient was instructed not to deviatefrom the prescription dosages. Stop lamotrigine is the first sign of rash. Patient was insisted to informoffice if any of the serious side effect develops. discuss therpay options- patient does not want at this time lamotrigine 200 mg tablet - Take 1 tablet(s) every day by oral route at bedtime see pain management and GI 2. Generalized anxiety disorder - change Clonazepam 0.5 mg three times a day [facility] local pharmacy in [place] no early refills on control substance educated on no control substance prescribed if cannabis or illegal substance or ETOH abuse UDS and random - SSRI/SNRI side effects discussed including but not limited to, gastric upset, nausea, vomiting, diarrhea and/or constipation, weight changes, sexual side effects including loss of libido, increased suicidal thoughts/behaviors in children and young adults, and serotonin syndrome. colonoscopy 2013refused flu vaccinesrefused COVID vaccines Discussed and educated pt regarding benzodiazepines are generally not intended for prolonged use and that use can cause tolerance, dependence, depression, and associated memory issues including dementias (this list is not exhaustive). Benzodiazepine use is generally not recommended concurrently with pain medications and/or other controlled substances due to increased risks of profound sedation, respiratory depression, coma, and even . They are not to be used with any alcohol, as this combination can also be lethal. Patient was provided caution http_s://www.add[employer]ag.com/cannabis-us y-csygrmlg-dtfedzzsj -adhd/ http_s://www.maxwell.or g/Urois-Sbuvit-Nicsl ss/Jnrybg-Puaegd-Cet ditions http_s://psychcentLiveStubcom/depression/the -cognitive-symptoms- of-depression#treatm ents http__s://www.[facility].n ih.gov/health/topics /wseakc-wyqmif-cpfkx ations http__s://www.maxwell.o rg/Dsvnk-Vbexge-Vvkm ess/Treatments/Menta r-Wgbaie-Jimfaijzbgq 3. Tobacco user General health and safety guidelines: Do not smoke. Nicotine and other chemicals in cigarettes and cigars can cause lung damage. Ask your healthcare provider for information if you currently smoke and need help to quit. E-cigarettes or smokeless tobacco still contain nicotine. Talk to your healthcare provider before you use these products. Smoking Education Do not smoke. Nicotine and other chemicals in cigarettes and cigars can cause lung damage. Ask your healthcare provider for information if you currently smoke and need help to quit. E-cigarettes or smokeless tobacco still contain nicotine. Talk to your healthcare provider before you use these products. education on decrease to stopping nicotine products and stop smoking hotline given 37-Quit - Yes [place] Tobacco Quitline Call a Smoking Quitline The [employer] Smoking Quitline, (1-495-17V-QUIT) Smokefree.gov, which connects you with your State's Quitline, (9-813-ZKLQFMI) Veterans Smoking Quitline, (9-310-BCGMHQI) 4. Primary insomnia see sleep provider 5. Long-term drug therapy -control substance agreement Clonazepam UDS 02/18/2025 Other [facility] (current) drug therapy (ICD-10 - Z79.899) Medication Refill: Care Instructions material was published, Medication Refill: Care Instructions material was published 1.major depression - continue depression- medical issues - see specialist colonoscopy 11/24/23 hx auditory hallucinations- refer to neurologist and r/o migrianes and insomnia cause- psychosis improved and sleep improved with migraine improved on Botox educated and discuss Lamotrigine 200 mg po hs - [facility] patient does not want to add or change rx at this time Second generation antipsychotics (SGAs) have metabolic syndrome issues with weight gain, increase in prolactin, increased waist circumference, increased lipids, and increased glucose. Thus routine monitoring of weight, metabolic labs, etc. is indicated. A general rank ordering of antipsychotics that have the greatest to the least risk of metabolic effects is olanzapine, quetiapine, risperidone, ziprasidone, and aripiprazole. However, weight gain can occur with all of these drugs and considerable variability exists among patients receiving the same drug regarding the risk of metabolic effects. Anti-psychotic agents not only increase the risk of metabolic disorder, they also increase the risk of CVA, akathisia, and movement disorders including EPS or tardive dyskinesia (more common with first generation antipsychotics) and more. GENE SIGHT RESULTS REVIEWED and copy given to patient educated on all medications, benefits, side effects and risk, and educated on depression, anxiety, and mood d/o and educated on compliance of medications, metabolic and movement d/o education appointment is, continue therapy discussion with patient about course of treatment and patient instructions. education on serotonin syndrome different dxn Bipolar II Lamotrigine lamotrigine has a serious rashes requiring hospitalization and discontinue treatment includingSteven Gordy syndrome rare case of toxic epidermal necrolysis and cache related deaths.Incidence with adjunct of epilepsy treatment 0.8% in 2 to 16 years old and 0.3% in adults, bipolarand other mood disorders incidence 0.8% this initial monotherapy and 0.13% as adjunctivetreatment. Other risk factor may include concomitant use of valproate acid derivative or exceeding initiallamotrigine does or does as clinician recommendation; most life-threatening rash of occurring first 2to 8 week of treatment with isolated cases after prolonged treatment; though benign may occur,discontinue treatment at first sign of rash unless clearly not a drug related; TC treatment may notprevent trash from becoming life-threatening or permanently disabling or disfiguring.Comment reaction include, nausea/vomiting, dizziness/vertigo, visual disturbances, somnolence,ataxia, pruritus/rash, pharyngitis, headache, rhinitis, diarrhea, fever, asthenia, insomnia, tremor,abdominal pain, cough, accidental injury, constipation, dysmenorrhea, incoordination, anxiety,seizures, irritability, anorexia, xerostomia, and photosensitivity.Ser ious reactions include: Rash, severe; Smith Gordy syndrome; toxic epidermal necrosis;injury edema, hypersensitivity reactions. Including fatal, multiple organ failure to safe fatal, rash witheosinophilia systemic symptoms, DIC, neutropenia, leukopenia, thrombocytopenia, pancytopenia,aplasti c anemia, hemolytic anemia, i pancreatitis, hepatic failure, rhabdomyolysis, worsening ofsuicidal ideation, worsening of depression, cleft lip/palate [first trimester use]DO not Change Cosmetic, perfumes or soap for next 4 weeks.The patient was advice to take lamotrigine as prescribed the patient was instructed not to deviatefrom the prescription dosages. Stop lamotrigine is the first sign of rash. Patient was insisted to informoffice if any of the serious side effect develops. discuss therpay options- patient does not want at this time lamotrigine 200 mg tablet - Take 1 tablet(s) every day by oral route at bedtime see pain management and GI 2. Generalized anxiety disorder -Clonazepam 1.5 mg PO J[facility] local pharmacy in [place] no early refills on control substance educated on no control substance prescribed if cannabis or illegal substance or ETOH abuse UDS and random - SSRI/SNRI side effects discussed including but not limited to, gastric upset, nausea, vomiting, diarrhea and/or constipation, weight changes, sexual side effects including loss of libido, increased suicidal thoughts/behaviors in children and young adults, and serotonin syndrome. colonoscopy 2013refused flu vaccinesrefused COVID vaccines Discussed and educated pt regarding benzodiazepines are generally not intended for prolonged use and that use can cause tolerance, dependence, depression, and associated memory issues including dementias (this list is not exhaustive). Benzodiazepine use is generally not recommended concurrently with pain medications and/or other controlled substances due to increased risks of profound sedation, respiratory depression, coma, and even . They are not to be used with any alcohol, as this combination can also be lethal. Patient was provided caution http_s://www.[employer].com/cannabis-us g-fiozrhbo-clgsdnurb -adhd/ http_s://www.maxwell.or g/Gacxa-Swpkiy-Fvjsi ss/Mrvndc-Qwqvjb-Ate ditions http_s://psychcentra l.com/depression/the -cognitive-symptoms- of-depression#treatm ents http__s://www.[facility].n ih.gov/health/topics /velexh-djpmvb-taknz ations http__s://www.maxwell.o rg/Esbka-Jkspxw-Eiao ess/Treatments/Menta h-Gwicsc-Dcwamcvwiup 3. Tobacco user General health and safety guidelines: Do not smoke. Nicotine and other chemicals in cigarettes and cigars can cause lung damage. Ask your healthcare provider for information if you currently smoke and need help to quit. E-cigarettes or smokeless tobacco still contain nicotine. Talk to your healthcare provider before you use these products. Smoking Education Do not smoke. Nicotine and other chemicals in cigarettes and cigars can cause lung damage. Ask your healthcare provider for information if you currently smoke and need help to quit. E-cigarettes or smokeless tobacco still contain nicotine. Talk to your healthcare provider before you use these products. education on decrease to stopping nicotine products and stop smoking hotline given 283-Quit - Yes [place] Tobacco Quitline Call a Smoking Quitline The [employer] Smoking Quitline, (4-991-60Q-QUIT) Smokefree.gov, which connects you with your State's Quitline, (4-822-WLYVPHX) Veterans Smoking Quitline, (4-019-GXUAQRJ) 4. Primary insomnia see sleep provider 5. Long-term drug therapy -control substance agreement Clonazepam UDS 05/20/2025 Other [facility] (current) drug therapy (ICD-10 - Z79.899) Medication Refill: Care Instructions material was published, Medication Refill: Care Instructions material was published 1.major depression - continue depression- discuss and educated on medications options- reviewed [facility] Add Vyalar 1.5 mg every other day for depression and auditory hallucinations- samples given patient also seeing neurosurgeon for migraines and headaches medical issues - see specialists colonoscopy 11/24/23 hx auditory hallucinations- refer to neurologist and r/o migrianes and insomnia cause- psychosis auditory and sleep issues and with migraine hx on Botox educated and discuss Lamotrigine 200 mg po hs - [facility] Second generation antipsychotics (SGAs) have metabolic syndrome issues with weight gain, increase in prolactin, increased waist circumference, increased lipids, and increased glucose. Thus routine monitoring of weight, metabolic labs, etc. is indicated. A general rank ordering of antipsychotics that have the greatest to the least risk of metabolic effects is olanzapine, quetiapine, risperidone, ziprasidone, and aripiprazole. However, weight gain can occur with all of these drugs and considerable variability exists among patients receiving the same drug regarding the risk of metabolic effects. Anti-psychotic agents not only increase the risk of metabolic disorder, they also increase the risk of CVA, akathisia, and movement disorders including EPS or tardive dyskinesia (more common with first generation antipsychotics) and more. GENE SIGHT RESULTS REVIEWED educated on all medications, benefits, side effects and risk, and educated on depression, anxiety, and mood d/o and educated on compliance of medications, metabolic and movement d/o education appointment is, continue therapy discussion with patient about course of treatment and patient instructions. education on serotonin syndrome different dxn Bipolar II Lamotrigine lamotrigine has a serious rashes requiring hospitalization and discontinue treatment includingSteven Gordy syndrome rare case of toxic epidermal necrolysis and cache related deaths.Incidence with adjunct of epilepsy treatment 0.8% in 2 to 16 years old and 0.3% in adults, bipolarand other mood disorders incidence 0.8% this initial monotherapy and 0.13% as adjunctivetreatment. Other risk factor may include concomitant use of valproate acid derivative or exceeding initiallamotrigine does or does as clinician recommendation; most life-threatening rash of occurring first 2to 8 week of treatment with isolated cases after prolonged treatment; though benign may occur,discontinue treatment at first sign of rash unless clearly not a drug related; TC treatment may notprevent trash from becoming life-threatening or permanently disabling or disfiguring.Comment reaction include, nausea/vomiting, dizziness/vertigo, visual disturbances, somnolence,ataxia, pruritus/rash, pharyngitis, headache, rhinitis, diarrhea, fever, asthenia, insomnia, tremor,abdominal pain, cough, accidental injury, constipation, dysmenorrhea, incoordination, anxiety,seizures, irritability, anorexia, xerostomia, and photosensitivity.Ser ious reactions include: Rash, severe; Smith Gordy syndrome; toxic epidermal necrosis;injury edema, hypersensitivity reactions. Including fatal, multiple organ failure to safe fatal, rash witheosinophilia systemic symptoms, DIC, neutropenia, leukopenia, thrombocytopenia, pancytopenia,aplasti c anemia, hemolytic anemia, i pancreatitis, hepatic failure, rhabdomyolysis, worsening ofsuicidal ideation, worsening of depression, cleft lip/palate [first trimester use]DO not Change Cosmetic, perfumes or soap for next 4 weeks.The patient was advice to take lamotrigine as prescribed the patient was instructed not to deviatefrom the prescription dosages. Stop lamotrigine is the first sign of rash. Patient was insisted to informoffice if any of the serious side effect develops. discuss therpay options- patient does not want at this time lamotrigine 200 mg tablet - Take 1 tablet(s) every day by oral route at bedtime see pain management and GI 2. Generalized anxiety disorder - change Clonazepam 0.5 mg three times a day [facility] local pharmacy in [place] no early refills on control substance educated on no control substance prescribed if cannabis or illegal substance or ETOH abuse UDS and random - SSRI/SNRI side effects discussed including but not limited to, gastric upset, nausea, vomiting, diarrhea and/or constipation, weight changes, sexual side effects including loss of libido, increased suicidal thoughts/behaviors in children and young adults, and serotonin syndrome. colonoscopy 2013refused flu vaccinesrefused COVID vaccines Discussed and educated pt regarding benzodiazepines are generally not intended for prolonged use and that use can cause tolerance, dependence, depression, and associated memory issues including dementias (this list is not exhaustive). Benzodiazepine use is generally not recommended concurrently with pain medications and/or other controlled substances due to increased risks of profound sedation, respiratory depression, coma, and even . They are not to be used with any alcohol, as this combination can also be lethal. Patient was provided caution http_s://www.[employer]/cannabis-us i-vtvnktih-edufphxmo -adhd/ http_s://www.maxwell.or g/Xohtc-Qxqrpy-Yactm ss/Cfkxcz-Ngfiww-Jdv ditions http_s://psychcentra l.com/depression/the -cognitive-symptoms- of-depression#treatm ents http__s://www.nimh.n ih.gov/health/topics /mvtqpe-hwvnav-cbrye ations http__s://www.maxwell.o rg/Xpplz-Wcysfb-Gxgx ess/Treatments/Menta b-Mxqtmd-Jeialihomit 3. Tobacco user General health and safety guidelines: Do not smoke. Nicotine and other chemicals in cigarettes and cigars can cause lung damage. Ask your healthcare provider for information if you currently smoke and need help to quit. E-cigarettes or smokeless tobacco still contain nicotine. Talk to your healthcare provider before you use these products. Smoking Education Do not smoke. Nicotine and other chemicals in cigarettes and cigars can cause lung damage. Ask your healthcare provider for information if you currently smoke and need help to quit. E-cigarettes or smokeless tobacco still contain nicotine. Talk to your healthcare provider before you use these products. education on decrease to stopping nicotine products and stop smoking hotline given 797-Quit - Yes [place] Tobacco Quitline Call a Smoking Quitline The [employer] Smoking Quitline, (5-186-26G-QUIT) Smokefree.gov, which connects you with your State's Quitline, (8-722-JTLMSXF) Veterans Smoking Quitline, (8-517-SCDTBBW) 4. Primary insomnia see sleep provider 5. Long-term drug therapy -control substance agreement Clonazepam UDS 11/24/2024 Other Learning About Depression material was published, Learning About Depression Screening material was published, Depression Treatment: Care Instructions material was published 1.major depression - continue depression- medical issues - colonoscopy scheduled 11/24/23 hx auditory hallucinations- refer to neurologist and r/o migrianes and insomnia cause- psychosis improved and sleep improved with migraine improved on Botox educated and discuss Lamotrigine 200 mg po hs - [facility] patient does not want to add or change rx at this time Second generation antipsychotics (SGAs) have metabolic syndrome issues with weight gain, increase in prolactin, increased waist circumference, increased lipids, and increased glucose. Thus routine monitoring of weight, metabolic labs, etc. is indicated. A general rank ordering of antipsychotics that have the greatest to the least risk of metabolic effects is olanzapine, quetiapine, risperidone, ziprasidone, and aripiprazole. However, weight gain can occur with all of these drugs and considerable variability exists among patients receiving the same drug regarding the risk of metabolic effects. Anti-psychotic agents not only increase the risk of metabolic disorder, they also increase the risk of CVA, akathisia, and movement disorders including EPS or tardive dyskinesia (more common with first generation antipsychotics) and more. GENE SIGHT RESULTS REVIEWED and copy given to patient educated on all medications, benefits, side effects and risk, and educated on depression, anxiety, and mood d/o and educated on compliance of medications, metabolic and movement d/o education appointment is, continue therapy discussion with patient about course of treatment and patient instructions. education on serotonin syndrome different dxn Bipolar II Lamotrigine lamotrigine has a serious rashes requiring hospitalization and discontinue treatment includingSteven Gordy syndrome rare case of toxic epidermal necrolysis and cache related deaths.Incidence with adjunct of epilepsy treatment 0.8% in 2 to 16 years old and 0.3% in adults, bipolarand other mood disorders incidence 0.8% this initial monotherapy and 0.13% as adjunctivetreatment. Other risk factor may include concomitant use of valproate acid derivative or exceeding initiallamotrigine does or does as clinician recommendation; most life-threatening rash of occurring first 2to 8 week of treatment with isolated cases after prolonged treatment; though benign may occur,discontinue treatment at first sign of rash unless clearly not a drug related; TC treatment may notprevent trash from becoming life-threatening or permanently disabling or disfiguring.Comment reaction include, nausea/vomiting, dizziness/vertigo, visual disturbances, somnolence,ataxia, pruritus/rash, pharyngitis, headache, rhinitis, diarrhea, fever, asthenia, insomnia, tremor,abdominal pain, cough, accidental injury, constipation, dysmenorrhea, incoordination, anxiety,seizures, irritability, anorexia, xerostomia, and photosensitivity.Ser ious reactions include: Rash, severe; Smith Gordy syndrome; toxic epidermal necrosis;injury edema, hypersensitivity reactions. Including fatal, multiple organ failure to safe fatal, rash witheosinophilia systemic symptoms, DIC, neutropenia, leukopenia, thrombocytopenia, pancytopenia,aplasti c anemia, hemolytic anemia, i pancreatitis, hepatic failure, rhabdomyolysis, worsening ofsuicidal ideation, worsening of depression, cleft lip/palate [first trimester use]DO not Change Cosmetic, perfumes or soap for next 4 weeks.The patient was advice to take lamotrigine as prescribed the patient was instructed not to deviatefrom the prescription dosages. Stop lamotrigine is the first sign of rash. Patient was insisted to informoffice if any of the serious side effect develops. discuss therpay options- patient does not want at this time lamotrigine 200 mg tablet - Take 1 tablet(s) every day by oral route at bedtime 2. Generalized anxiety disorder -Clonazepam 1.5 mg PO HS [facility] local pharmacy in [place] no early refills on control substance educated on no control substance prescribed if cannabis or illegal substance or ETOH abuse UDS and random - SSRI/SNRI side effects discussed including but not limited to, gastric upset, nausea, vomiting, diarrhea and/or constipation, weight changes, sexual side effects including loss of libido, increased suicidal thoughts/behaviors in children and young adults, and serotonin syndrome. colonoscopy 2013refused flu vaccinesrefused COVID vaccines Discussed and educated pt regarding benzodiazepines are generally not intended for prolonged use and that use can cause tolerance, dependence, depression, and associated memory issues including dementias (this list is not exhaustive). Benzodiazepine use is generally not recommended concurrently with pain medications and/or other controlled substances due to increased risks of profound sedation, respiratory depression, coma, and even . They are not to be used with any alcohol, as this combination can also be lethal. Patient was provided caution http_s://www.[employer]/cannabis-us h-nbnfvcxa-yanvbnlqk -adhd/ http_s://www.maxwell.or g/Xsrfo-Nnpxak-Vulby ss/Hmmbgf-Qbhmwd-Jjm ditions http_s://psychcentra Keukey.com/depression/the -cognitive-symptoms- of-depression#treatm ents http__s://www.nimh.n ih.gov/health/topics /gyhnuj-pbevua-gijvs ations http__s://www.maxwell.o rg/Tbyct-Ocmfkl-Iizw ess/Treatments/Menta v-Ptvmil-Kzgehpmcjga 3. Tobacco user General health and safety guidelines: Do not smoke. Nicotine and other chemicals in cigarettes and cigars can cause lung damage. Ask your healthcare provider for information if you currently smoke and need help to quit. E-cigarettes or smokeless tobacco still contain nicotine. Talk to your healthcare provider before you use these products. 4. Primary insomnia see sleep provider 5. Long-term drug therapy -control substance agreement Clonazepam UDS Plan Of Treatment Pending Test Test Name Order Date UDT 02/18/2025 Future Test Test Name Order Date Cytochrome P450 2C9 Genotyping 4 Next Appt Details Provider Name:Marisa Garcia , 08/19/2025 08:45:00 AM, [address], [address], [place], [address], Insurance Providers Payer Name Payer Address Payer Phone Subscriber Number Group Number Insured Name Patient Relationship to Insured Coverage Start Date Coverage End Date [employer] [address] [place] [phone] [id number] ARELIS JARVIS Self - patient is the insured Medical (General) History Medical History History ICD Code Problems: Generalized anxiety disorder Long-term drug therapy Mild major depression Mild recurrent major depression Primary insomnia Tobacco user , Surgical History Surgery Date(Month/Year) Tonsilectomy/adenoids 01/31/2000 Appendectomy (70066) 05/22/2020 Endometrial ablation (35019) 08/21/2011
--- OUTSIDE RECORDS SUMMARY | 2025-08-11 08:47 | XMS_ITS | Clinical Summary ---
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 Gender Identity Female 04/04/2024 8:32 AM CDT Sexual Orientation Straight 04/04/2024 8: 32 AM CDT Plan of Treatment Health Maintenance Due Date Last Done Comments DTAP/TDAP/TD VACCINES (1 - Tdap) 1997 HEPATITIS B VACCINES (1 of 3 - 19+ 3-dose series) 01/06 HPV/Cotest (21-29) 1999 CERVICAL CANCER SCREENING 01/31/2008 HPV/Cotest (30-65) 01/31/2008 PAP SMEAR 01/31/2008 BREAST CANCER SCREENING 2018 COLORECTAL SCREENING 2023 Colorectal Cancer Screening 2023 FIT-DNA Q 3 years 2023 FIT/FOBT Q 1 year 2023 Flex Sig/CT Colonography Q 5 years 2023 INFLUENZA VACCINE (#1) 2025 Insurance [employer] OPEN ACCESS HMO Radionomy HMO OPEN ACCESS [facility] BLUE ACCESS/TRUE BLUE PPO
--- OUTSIDE RECORDS SUMMARY | 2025-08-11 08:47 | XMS_ITS | Patient Health Record ---
Author Organization [facility] [employer] [place] ([address]) Address [address] [place] [address] Care Team Providers Care Manufacturing Technology Analyst Name Role Phone Bruce FULTON, Jerad Primary Care Provider Unavailab Dr. Toni Cordova Unavailable [phone] Deonna Morton Unavailable [phone] Allergies No Known Allergies Reason For Referral Reason Referral to see if naga devine is a candidate for bilateral occipital neurolysis/decompression surgery Diagnosis 1 Occipital neuralgia (M54.81) Referral Organization [facility] ([address] Referring Provider First Name Deonna Referring Provider Last Name Praveen Referring Provider Speciality Neurology Referred Provider Chong Ellsworth Referral Priority Routine Medications Medication SIG (Take, Route, Frequency, Duration) Notes Start Date End Date Status SEROquel 25 MG 1 tablet at bedtime Orally Once a day Active Ibuprofen 800 MG 1 tab(s) orally Qday, PRN Not-Taking lamoTRIgine 100 MG 1 tab(s) orally 2 times a day Active risperiDONE 0.5 MG 1 tab(s) orally 2 times a day; Duration: 30 day(s) Not-Taking Cyclobenzaprine HCl 10 MG 1/2 or 1 tab orally 3 times a day; Duration: 30 days 08/28/2023 Not-Taking Trudhesa 0.725 MG/SPRAY 2 SPRAYS (1 SPRAY PER NOSTRIL) NASAL SPRAY ONCE *Please review and pick correct strength-formulat ion from [employer] options. If intended option is not shown, discontinue and re-order from Quick Search* Not-Taking Medrol 4 MG 6 pills Day 1, 5 pills Day 2, 4 pills Day 3, 3 pills Day 4, 2 pills Day 5, 1 pill Day 6, then stop orally in AM with breakfast as directed; Duration: 6 days Not-Taking Nurtec 75 MG 1 tablet Orally every other day as PREVENTIVE 05/07/2024 Active Ondansetron 4 MG 1 tablet Orally Once a day; Duration: 30 days As needed 09/24/2024 Active ZAVZPRET (ZAVEGEPANT) 10 MG 1 SPRAY IN ONE NOSTRIL X 1 INTRANASAL PRN MIGRAINE X 1, NO REPEAT DOSE *Please review for potential replacement for e-prescription and drug interaction check* Not-Taking Tylenol 325 MG 2 tab(s) orally every 4 hours Not-Taking Pregabalin 100 MG 1 cap nightly for 1 week, then 1 cap twice daily for 1 week, then 1 cap three times a day Orally as directed 05/07/2024 Active Neurontin 100 MG 1 cap(s) orally 3 times a day; Duration: 30 day(s) Not-Taking KlonoPIN 1 MG 1 tab(s) orally qhs Active ALPRAZolam 0.5 MG 1 tab(s) orally 3 times a day Not-Taking NURTEC ODT 75 MG 1 TAB(S) ORALLY ONCE *Please review for potential replacement for e-prescription and drug interaction check* 12/17/2023 Active traZODone HCl 50MG 1 BY MOUTH AT BEDTIME *Please review and pick correct strength-formulat ion from [employer] options. If intended option is not shown, discontinue and re-order from Quick Search* Not-Taking Social History Tobacco Use: Social History Observation Description Date Details (start date - stop date) Current Smoker NA - NA Smoking Smart Form: Question Answer Notes Are you a: current smoker Section Notes: Recovered alcoholic. Has bee n a smoker for about 30 years. Recovered alcoholic. Has bee n a smoker for about 30 years. Recovered alcoholic. Has bee n a smoker for about 30 years. Recovered alcoholic. Has bee n a smoker for about 30 years. Recovered alcoholic. Has bee n a smoker for about 30 years. Recovered alcoholic. Has bee n a smoker for about 30 years. Recovered alcoholic. Has bee n a smoker for about 30 years. Recovered alcoholic. Has bee n a smoker for about 30 years. Recovered alcoholic. Has bee n a smoker for about 30 years. Recovered alcoholic. Has bee n a smoker for about 30 years. Recovered alcoholic. Has bee n a smoker for about 30 years. Recovered alcoholic. Has bee n a smoker for about 30 years. Recovered alcoholic. Has bee n a smoker for about 30 years. Recovered alcoholic. Has bee n a smoker for about 30 years. Problems Problem Type SNOMED Code ICD Code Onset Dates Problem Status W/U Status Risk Notes Problem Chronic migraine without aura, non-refractory (disorder) (857724430267940 ) Migraine without aura, not intractable, without status migrainosus (G43.009) Active confirmed Problem Refractory migraine without aura (648854432) Migraine without aura, intractable, with status migrainosus (G43.011) Active confirmed Problem Migraine with aura (6518061) Migraine with aura, not intractable, without status migrainosus (G43.109) Active confirmed Problem Chronic migraine without aura, non-intractable (888590411055205 ) Chronic migraine without aura, not intractable, without status migrainosus (G43.709) Active confirmed Problem Chronic intractable migraine without aura (091657742990014 ) Chronic migraine without aura, intractable, with status migrainosus (G43.711) Active confirmed Problem Chronic tension-type headache (193960559) Chronic tension-type headache, intractable (G44.221) Active confirmed Problem Insomnia (093204811) Insomnia, unspecified (G47.00) Active confirmed Problem Hypersomnia (41936241) Hypersomnia, unspecified (G47.10) Active confirmed Problem Sleep apnea (50837693) Sleep apnea, unspecified (G47.30) Active confirmed Problem Obstructive sleep apnea syndrome (disorder) (29197312) Obstructive sleep apnea (adult) (pediatric) (G47.33) Active confirmed Problem Occipital neuralgia (80624183) Occipital neuralgia (M54.81) Active confirmed Problem Snoring (38073625) Snoring (R06.83) Active confirmed Problem Chronic fatigue syndrome (disorder) (80163600) Chronic fatigue, unspecified (R53.82) Active confirmed Problem Muscle pain (47187252) Myalgia, unspecified site (M79.10) Active confirmed Problem Cervicogenic headache (507474525) Cervicogenic headache (G44.86) Active confirmed Problem Obesity (638578194) Obesity, unspecified (E66.9) Active confirmed Problem Sleep disorder (51334331) Other sleep disorders (G47.8) Active confirmed Problem Hypersomnia (99275837) Hypersomnia, unspecified (G47.10) Active confirmed Problem Transformed migraine (disorder) (241785844) Chronic migraine with aura, not intractable, without status migrainosus (G43.E09) Active confirmed Encounters Encounter Location Date Provider Diagnosis [place] [phone] 09/24/2024 Deonna Morton Chronic migraine without aura, not intractable, without status migrainosus G43.[address] [address] 03/15/2025 Deonna Morton Chronic migraine wit h aura, not intractable, without status migrainosus G43.E09 and Occipital neuralgia M54.[address] [address] 11/24/2024 Deonna Morton Migraine without aur a, intractable, with status migrainosus G43.011 ; Chronic tension-type headache, intractable G44.221 ; Myalgia, unspecified site M79.10 ; Occipital neuralgia M54.81 and Bilateral temporomandibular joint disorder, unspecified M26.[address] [address] 12/17/2024 Deonna Morton Chronic migraine wit h aura, not intractable, without status migrainosus G43.E09 [address] [address] 04/01/2025 Deonna Morton Chronic migraine wit h aura, not intractable, without status migrainosus G43.E09 ; Occipital neuralgia M54.81 and Myalgia, unspecified site M79.[address] [address] 12/24/2024 Toni Davis [address] [address] 03/15/2025 Deonna Morton [facility] [address] [place] [address] 12/29/2024 Toni Susan [facility] [address] [facility] [address] [place] [address] 10/08/2024 Deonna Praveen Assessments Encounter Date Diagnosis (ICD Code) Assessment Notes Treatment Notes Treatment Clinical Notes Section Notes 09/24/2024 Chronic migraine without aura, not intractable, without status migrainosus (ICD-10 - G43.709) 11/24/2024 Migraine without aura, intractable, with status migrainosus (ICD-10 - G43.011) -Abortive treatment plan: Extra Nurtec. Continue ondansetron. -Preventive treatment plan: Continue Botox. Continue Nurtec qod.-Educated the patient on migraine lifestyle recommendations . I recommended the following measures: avoid known triggers of migraine, drink > 100 fluid ounces of non-caffeinated fluid daily, limit caffeine to 2 servings/day, sleep 7-8 hours/night and address any sleep concerns with us and report symptoms of snoring or fatigue; healthy management of stress; avoid treating headaches more than 2 days/week with abortive medication unless approved in treatment plan; can take Riboflavin 400 mg and Magnesium 500 mg daily as supplements; keep scheduled follow-up appointments 11/24/2024 Chronic tension-type headache, intractable (ICD-10 - G44.221) Discussed hydration and stress reduction. Botox has helped with these symptoms. 12/17/2024 Chronic migraine wit h aura, not intractable, without status migrainosus (ICD-10 - G43.E09) 03/15/2025 Occipital neuralgia (ICD-10 - M54.81) Refer to Dr. Ellsworth to see if she is a candidate for bilateral occipital neurolysis/deco mpression surgery 03/15/2025 Chronic migraine wit h aura, not intractable, without status migrainosus (ICD-10 - G43.E09) 04/01/2025 Occipital neuralgia (ICD-10 - M54.81) Follow up with Dr. Ellsworth. Assess effect of trigger point/ONB injections today. 04/01/2025 Chronic migraine wit h aura, not intractable, without status migrainosus (ICD-10 - G43.E09) -Abortive treatment plan: Continue Nurtec. -Preventive treatment plan: Continue Botox. Continue Nurtec qod.-Educated the patient on migraine lifestyle recommendations . I recommended the following measures: avoid known triggers of migraine, drink > 100 fluid ounces of non-caffeinated fluid daily, limit caffeine to 2 servings/day, sleep 7-8 hours/night and address any sleep concerns with us and report symptoms of snoring or fatigue; healthy management of stress; avoid treating headaches more than 2 days/week with abortive medication unless approved in treatment plan; can take Riboflavin 400 mg and Magnesium 500 mg daily as supplements; keep scheduled follow-up appointments 11/24/2024 Myalgia, unspecified site (ICD-10 - M79.10) Continue pregabalin. Assess effect of today's trigger point injections. 04/01/2025 Myalgia, unspecified site (ICD-10 - M79.10) Follow up with Dr. Ellsworth. Assess effect of trigger point/ONB injections today. 11/24/2024 Occipital neuralgia (ICD-10 - M54.81) Continue pregabalin. Assess effect of today's trigger point injections. 11/24/2024 Bilateral temporomandibular joint disorder, unspecified (ICD-10 - M26.603) Botox has helped with these symptoms. Follow up with TMJ specialist. Plan Of Treatment Pending Test Test Name Order Date Sleep Study WatchPAT 300 (Zoll-Liban) 0 02/06/2023 Insurance Providers Payer Name Payer Address Payer Phone Subscriber Number Group Number Insured Name Patient Relationship to Insured Coverage Start Date Coverage End Date [facility] [address] [place] [address] [id number] Roland Hager Spouse - patient is the spouse of the insured Medical (General) History Medical History History ICD Code Chronic migraine Bipolar depression Recovered alcoholic Surgical History Surgery Date(Month/Year) Tonsillectomy Appy
--- OUTSIDE RECORDS SUMMARY | 2025-08-11 08:48 | XMS_ITS | Patient Health Record ---
Author Organization [facility] Address [address] [place] [address] Care Team Providers Care Administrative Assistant Coordinator Name Role Phone VAUGHN FULTON, VALERIE Primary Care Provider Unavailab Marlene Deluna Unavailable [phone] Edward Cardona Unavailable [phone] Allergies Allergen (clinical drug ingredient) Drug/Non Drug Allergy documented on EMR Reaction Allergy Type Onset Date Status Non-steroidal anti-inflammatory agent (FN) NSAIDs hx of GI issues Drug Allergy Active Reason For Referral No Information Medications Medication SIG (Take, Route, Frequency, Duration) Notes Start Date End Date Status clonazePAM 0.5 MG 1 tablet Orally 4 ti mes a day weaning off Active Tylenol 325 MG 1 capsule as needed Orally every 6 hrs Active tiZANidine HCl 4 MG 1-2 tablets at bedti me as needed Orally at bedtime as needed for 30 days 06/17/2025 Active lamoTRIgine 200 MG 1 tablet Orally Once a day weaning off Active Social History Tobacco Use: Social History Observation Description Date Details (start date - stop date) Current Smoker NA - NA Tobacco Control (Standard) Question Answer Notes Tobacco use: Current smoker Problems Problem Type SNOMED Code ICD Code Onset Dates Problem Status W/U Status Risk Notes Problem Solitary sacroiliitis (785221600) Sacroiliitis, not elsewhere classified (M46.1) Active confirmed Problem Radiculopathy (40408351) Radiculopathy (M54.10) Active confirmed Encounters Encounter Location Date Provider Diagnosis [facility] [address] [place] [address] 06/17/2025 Edward Cardona Lumbar radiculopathy M54.16 and Sacroiliitis, not elsewhere classified M46.1 [facility] [address] 07/06/2025 Marlene Russ Sacroiliitis, not elsewhere classified M46.1 [facility] [address] 07/20/2025 Edward Cardona Trochanteric bursiti s, right hip M70.61 and Sacroiliitis, not elsewhere classified M46.1 [facility] [address] 07/22/2025 Edward Cardona Trochanteric bursiti s, right hip M70.61 Assessments Encounter Date Diagnosis (ICD Code) Assessment Notes Treatment Notes Treatment Clinical Notes Section Notes 06/17/2025 Lumbar radiculopathy (ICD-10 - M54.16) IMPRESSION: 1. Low back pain with radiation to the right lower extremity. 2. Bilateral sacroiliitis with biomechanical dysfunction. 3. Right lower extremity paresthesia versus radiculopathy. 06/17/2025 Sacroiliitis, not elsewhere classified (ICD-10 - M46.1) IMPRESSION: 1. Low back pain with radiation to the right lower extremity. 2. Bilateral sacroiliitis with biomechanical dysfunction. 3. Right lower extremity paresthesia versus radiculopathy. 07/06/2025 Sacroiliitis, not elsewhere classified (ICD-10 - M46.1) 07/20/2025 Trochanteric bursitis, right hip (ICD-10 - M70.61) Assessment is unchanged from 06/17/25 except as denoted below. 07/20/2025 Sacroiliitis, not elsewhere classified (ICD-10 - M46.1) Assessment is unchanged from 06/17/25 except as denoted below. 07/22/2025 Trochanteric bursitis, right hip (ICD-10 - M70.61) 06/17/2025 Other PLAN: We will order an MRI of the lumbar spine without contrast to further evaluate the cause of the patient's pain and radicular symptoms. We suspect that there might be stenosis or a herniated disc. We will review the report at a followup visit. We will order a bilateral lower extremity EMG and nerve conduction study to further assess the paresthesia the patient has in her right lower extremity as the patient's prior MRI does not show any evidence of any causes for the radicular symptoms. We suspect that this is radiculopathy versus peripheral neuropathy. We will review the report at a followup visit. We will schedule the patient for a right sacroiliac joint injection to target her posterior hip pain stemming from sacroiliitis. We discussed procedure details, risks, benefits, alternatives and expected outcomes of the above procedure with the patient. The patient expressed understanding. We will order an x-ray of the pelvis prior to the injection to rule out any acute bony pathology. We will also order an x-ray of the right hip to rule out any acute bony pathology. We will review the x-ray reports at a followup visit. All patient questions were answered to the patient's satisfaction. We will prescribe Tizanidine (Zanaflex) 4 mg 1-2 tablets at night as needed to improve muscle pain and sleep quality overnight. Discussed potential medication risks and side effects of the above medication with the patient. The patient expressed understanding. The patient denies a history of kidney or liver disease. We will not add or change any other medications at this time as the patient is currently tolerating all medications with no significant side effects. We advised the patient to contact the clinic if they develop any new pain or worsening symptoms. The total encounter time for today's visit was 60 minutes, which was spent on preparation for the visit, for example, chart review, and in the activities documented in this note. IMPRESSION: 1. Low back pain with radiation to the right lower extremity. 2. Bilateral sacroiliitis with biomechanical dysfunction. 3. Right lower extremity paresthesia versus radiculopathy. 07/20/2025 Other Notes: Significant time was spent due to complex decision-making as a result of the patient's complicated pain issues. The plan is as follows: Patient will continue exercise therapy regimen. Pt states she has not yet gotten her MRI or NCS/EMG due to cost. Pt is saving up for these We will schedule the patient for a RIGHT TB steroid injection to target their RIGHT hip pain stemming from trochanteric bursitis. Discussed procedure details, risks, benefits, alternatives and expected outcomes with the patient. The patient expresses understanding. All patient questions were answered to their satisfaction. We will not add or change any medications at this time as the patient is currently tolerating all medications with no significant side effects. Advised pt to contact clinic if they develop any new/worsening symptoms or pain The total encounter time for today's visit was 30 minutes which was spent on preparation for the visit, e.g. chart review, and in the activities documented in this note. Please refer back to the HPI and physical exam sections of this note for further details regarding this encounter. Assessment is unchanged from 06/17/25 except as denoted below. Plan Of Treatment Pending Test Test Name Order Date MRI Lumbar Spine without contrast 2024 EMG Lower Extremity Bilateral 06/17/2025 Xray Hip Complete Right 06/17/2025 Xray Pelvis Complete 3 Views 06/17/2025 Insurance Providers Payer Name Payer Address Payer Phone Subscriber Number Group Number Insured Name Patient Relationship to Insured Coverage Start Date Coverage End Date [facility] [address] [place] [address] [id number] Araceli Hager Self - patient is the insured Medical (General) History Medical History History ICD Code Hypertension Depression Migraines Insomnia Anxiety Gastrointestinal Issues Surgical History Surgery Date(Month/Year) Lumbar Radiofrequency Ablation at L3 L4 L5 bilateral 2024 Appendectomy 2019 Uterine Ablation 2012 2011 2009 Tonsillectomy 2000
--- OUTSIDE RECORDS SUMMARY | 2025-08-11 08:48 | XMS_ITS | Encounter Summary ---
Author Organization [employer] Address 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 Gender Identity Female 04/04/2024 8:32 AM CDT Sexual Orientation Straight 04/04/2024 8: 32 AM CDT documented as of this encounter Plan of Treatment Not on file documented as of this encounter Procedures Procedure Name Priority Date/Time Associated Diagnosis Comments US BIOPHYSICAL PROF WO NST Timed Study 12/10/2008 9:27 AM CUSTOMER FACILITIES SUPERVISOR US BIOPHYSICAL PROF WO NST Timed Study 12/08/2008 11:46 AM CUSTOMER FACILITIES SUPERVISOR US BIOPHYSICAL PROF WO NST Timed Study 12/03/2008 10:41 AM CUSTOMER FACILITIES SUPERVISOR US BIOPHYSICAL PROF W NST Timed Study 11/30/2008 11:28 AM CUSTOMER FACILITIES SUPERVISOR US OB LTD 1 OR MORE FETUSES Timed Study 11/30/2008 10:17 AM CUSTOMER FACILITIES SUPERVISOR documented in this encounter Results * US BIOPHYSICAL PROF WO NST (12/10/2008 9:27 AM CUSTOMER FACILITIES SUPERVISOR) Anatomical Region Laterality Modality Pelvis Other Narrative 12/10/2008 9:27 AM CUSTOMER FACILITIES SUPERVISOR FINAL - Order Information Only Procedure Note Brain Guo, RN - 10/25/2015 FINAL - Order Information Only us Cami Murphy MD US ORDERABLES Final Resul t * US BIOPHYSICAL PROF WO NST (12/08/2008 11:46 AM CUSTOMER FACILITIES SUPERVISOR) Anatomical Region Laterality Modality Pelvis Other Narrative 12/08/2008 11:46 AM CUSTOMER FACILITIES SUPERVISOR FINAL - Order Information Only Procedure Note Brain Guo, RN - 10/25/2015 FINAL - Order Information Only us Cami Murphy MD US ORDERABLES Final Resul t * US BIOPHYSICAL PROF WO NST (12/03/2008 10:41 AM CUSTOMER FACILITIES SUPERVISOR) Anatomical Region Laterality Modality Pelvis Other Narrative 12/03/2008 10:41 AM CUSTOMER FACILITIES SUPERVISOR FINAL - Order Information Only Procedure Note Brain Guo, RN - 10/25/2015 FINAL - Order Information Only us Cami Murphy MD US ORDERABLES Final Resul t * US BIOPHYSICAL PROFILE (11/30/2008 11:28 AM CUSTOMER FACILITIES SUPERVISOR) Anatomical Region Laterality Modality Pelvis Other Narrative 11/30/2008 11:28 AM CUSTOMER FACILITIES SUPERVISOR Results in [employer] Procedure Note 04/14/2009 Results in [employer] us Gallo Ames MD US ORDERABLES Final Result * US OB LTD 1 OR MORE FETUSES (11/30/2008 10:17 AM CUSTOMER FACILITIES SUPERVISOR) Anatomical Region Laterality Modality Pelvis Other Narrative 11/30/2008 10:17 AM CUSTOMER FACILITIES SUPERVISOR Results in [employer] Procedure Note 04/14/2009 Results in [employer] us Cami Murphy MD US ORDERABLES Final Resul t documented in this encounter Visit Diagnoses Not on filedocumented in this encounter
--- OUTSIDE RECORDS SUMMARY | 2025-08-11 08:48 | XMS_ITS | Encounter Summary ---
Author Organization [employer] Address [address] [place] [address] Care Team Providers Care Meat Cutter Name Role Phone Unavailable Primary Care Provider Unavailabl e Encounter Details Date Type Department Care Team (Late st Contact Info) Description 11/22/2008 Outpatient Historical HIS PATIENT IN A BED Cami Murphy MD NO ADDRESS ON FILE Sandra Pan MD [address] [facility] [address] [id number] Normal Delivery Social History Tobacco Use Types Packs/Day Years Used Date Smoking Tobacco: Never Assessed Comments Unknown Sex and Gender Information Value Date Recorded Sex Assigned at Female 04/04/2024 8:32 AM CDT Legal Sex 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
--- OUTSIDE RECORDS SUMMARY | 2025-08-11 08:48 | XMS_ITS | Encounter Summary ---
Author Organization [facility] Address 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 Gender Identity Female 04/04/2024 8:32 AM CDT Sexual Orientation Straight 04/04/2024 8: 32 AM CDT documented as of this encounter Plan of Treatment Not on file documented as of this encounter Procedures Procedure Name Priority Date/Time Associated Diagnosis Comments TYPE AND SCREEN Routine 12/15/2008 3:35 AM CDT CBC WITH DIFFERENTIAL Stat 12/15/2008 3:30 AM CDT documented in this encounter Results * TYPE AND SCREEN (12/15/2008 3:35 AM CDT) HISTORY CHECK No Historical ABO/Rh [facility] ABO/RH TYPE O Positive [facility] SPECIMEN LIFE 3 days from drawdate [facility] ANTIBODY SCREEN Negative [facility] Blood specimen (specimen) 12/15/2008 3:35 AM CDT us Cami Murphy MD BLOOD BANK ORDERABLES Edite d INTERFACE SYSTEM Refer to clinic/hospital department [facility] CLIA# [id number] [address] [place] [address] * (ABNORMAL) CBC WITH DIFFERENTIAL (12/15/2008 3:30 AM CDT) MCV 89.8 82.0 - 99.0 fL [facility] PLATELETS 207 140 - 350 K/uL [facility] HEMOGLOBIN 12.2 11.8 - 14.8 g/dL [facility] RDW 13.4 11.5 - 14.5 % [facility] WBC 12.5(H) 4.0 - 9.8 K/uL [facility] MCH 30.5 27.2 - 32.6 pg [facility] MPV 11.1 9.3 - 12.4 fL [facility] HEMATOCRIT 35.9 35.5 - 44.0 % [facility] RDW-STDEV 44.1 37.1 - 48.7 fL [facility] RBC 4.00 3.90 - 4.90 M/uL [facility] MCHC 34.0 31.5 - 35.5 % [facility] EOSINOPHILS 1 0 - 7 % [facility] EOSINOPHIL ABSOLUTE 0.16 0.00 - 0.70 K/uL [facility] LYMPHOCYTES 18 16 - 45 % [facility] LYMPHOCYTE ABSOLUTE 2.30 0.70 - 4.50 K/uL [facility] BASOPHILS 0 0 - 2 % [facility] BASOPHILS ABSOLUTE 0.01 0.00 - 0.20 K/uL [facility] MONOCYTES 6 3 - 13 % [facility] MONOCYTE ABSOLUTE 0.72 0.10 - 1.30 K/uL [facility] NEUTROPHILS 74(H) 45 - 70 % [facility] NEUTROPHIL ABSOLUTE 9.33(H) 1.90 - 7.00 K/uL [facility] Blood specimen (specimen) 12/15/2008 3:30 AM CDT 12/15/2008 3:41 AM CDT us Cami Murphy MD HEMATOLOGY ORDERABLES Edite d INTERFACE SYSTEM Refer to clinic/hospital department [facility] CLIA# [id number] [address] [place] [address] documented in this encounter Visit Diagnoses Not on filedocumented in this encounter
--- OUTSIDE RECORDS SUMMARY | 2025-08-11 08:48 | XMS_ITS | Patient Health Record ---
Author Organization [facility] Address [address] [place], [place] [id number] Care Team Providers Care Speed Belt Sander Name Role Phone VALERIE GARZA Unavailable [phone] Rolo Razo Unavailable Unavailable Reason For Referral No Information Social History Social History Additional Details Category Social Info Options Details Migrated Social History Migrated Social History History of tobacco use : Current everyday tobacco user , Alcohol intake : , Smoking Status : Current everyday tobacco user Plan Of Treatment No Information Insurance Providers Payer Name Payer Address Payer Phone Subscriber Number Group Number Insured Name Patient Relationship to Insured Coverage Start Date Coverage End Date [facility] ([facility] ATTN CLAIMS [address] [place] [address] [id number] SARITA JARVIS Spouse - patient is the spouse of the insured
--- NOTE | 2025-08-11 09:00 | NEURO_ITS ---
Impression: # Complains of pain in lower extremities. ? # Normal motor/sensory Nerve Conduction Study, including Saphenous sensory nerves. ? # Normal Needle/ EMG exam without neurogenic changes. ? # Clinical correlation recommended. Nerve Conduction Studies ?Stim Site NR Peak (ms) P-T Amp (?V) Site1 Site2 Delta-P (ms) Dist (cm) Edmund (m/s) Left Saphenous Anti Sensory (Ant Med Mall) 14cm ? 3.0 5.8 14cm Ant Med Mall 3.0 0.0 Right Saphenous Anti Sensory (Ant Med Mall) 14cm ? 2.8 6.0 14cm Ant Med Mall 2.8 0.0 Left Sup Fibular Anti Sensory (Ant Lat Mall) 14 cm ? 2.0 7.3 14 cm Ant Lat Mall 2.0 16.0 80 Right Sup Fibular Anti Sensory (Ant Lat Mall) 14 cm ? 2.7 17.9 14 cm Ant Lat Mall 2.7 16.0 59 Left Sural Anti Sensory (Lat Mall) Calf ? 3.0 10.9 Calf Lat Mall 3.0 16.0 53 Right Sural Anti Sensory (Lat Mall) Calf ? 3.7 10.6 Calf Lat Mall 3.7 16.0 43 ?Stim Site NR Onset (ms) O-P Amp (mV) Site1 Site2 Delta-0 (ms) Dist (cm) Edmund (m/s) Left Peroneal Motor (Vastus Med) Ankle ? 4.0 1.5 Popit Ankle 7.2 36.0 50 Popit ? 11.2 1.5 Right Peroneal Motor (Vastus Med) Ankle ? 3.5 2.0 Popit Ankle 7.0 36.0 51 Popit ? 10.5 1.2 Left Tibial Motor (Abd Obregon Brev) Ankle ? 4.2 4.9 Knee Ankle 6.9 36.0 52 Knee ? 11.1 4.7 Right Tibial Motor (Abd [place] Brev) Ankle ? 4.0 4.0 Knee Ankle 7.3 36.0 49 Knee ? 11.3 4.3 F Wave Studies ?NR F-Lat (ms) L-R F-Lat (ms) Left Peroneal (Mrkrs) (EDB) ? 45.08 0.71 Right Peroneal (Mrkrs) (EDB) ? 44.38 0.71 Left Tibial (Mrkrs) (Abd Hallucis) ? 46.37 0.31 Right Tibial (Mrkrs) (Abd Hallucis) ? 46.68 0.31 Electromyography ?Side Muscle Nerve Root Ins Act Fibs Amp Dur Recrt Comment Right AntTibialis Dp Br Fibular L4-5 Nml Nml Nml Nml Nml Right Gastroc Tibial S1-2 Nml Nml Nml Nml Nml Right Fibularis Long Sup Br Fibular L5-S1 Nml Nml Nml Nml Nml Right Flex Dig Long Tibial L5-S2 Nml Nml Nml Nml Nml Right Ext Dig Brev Dp Br Fibular L5, S1 Nml Nml Nml Nml Nml Right QuadratusFem QuadFemoris L4-5, S1 Nml Nml Nml Nml Nml Left AntTibialis Dp Br Fibular L4-5 Nml Nml Nml Nml Nml Left Gastroc Tibial S1-2 Nml Nml Nml Nml Nml Left Fibularis Long Sup Br Fibular L5-S1 Nml Nml Nml Nml Nml Left Flex Dig Long Tibial L5-S2 Nml Nml Nml Nml Nml Left Ext Dig Brev Dp Br Fibular L5, S1 Nml Nml Nml Nml Nml Left QuadratusFem QuadFemoris L4-5, S1 Nml Nml Nml Nml Nml ?
== END 2025-08-11 08:33 | disposition home or self-care (01) ==
PROVIDERS: PCP Family Medicine; Visit Provider Physical Medicine & Rehabilitation Pain Medicine
DX: M54.10 Radiculopathy, site unspecified (principal)
CPT/HCPCS: 95886; 95910